=== PATIENT | female | born 1935 | race Caucasian/White ===

== ENCOUNTER → 2017-08-25 | Outpatient (CLI) | payer MEDICARE, OTHER ==
[~2017-08-25] MED LIST: ALBU90OI INH; ATEN25 PO; AZIT250 PO; Anastrozole1 GM MC; CALCA400CH PO; CALCAVITD PO; CALMAGZIN PO; CILO100 PO; CLEM1.34 PO; CYAN500 PO; FISH1000 PO; LOSA50 PO; LOVA40 PO; Loradamed10 MG PO; METF500 PO; Multivitamin1 EAC1 PO; NAPR220 PO; Preservision A1 EACH PO; Prilosec Otc20 MG PO; VITAMIN D31000 UNIT PO; VITAMIN D32000 UNIT PO; Xanax0.5 MG PO; Zithromax250 MG PO; Zofran Odt4 MG SL; Zofran4 MG PO; [UNRECOGNIZED DRUG - OTHER] PO
[2017-08-25 09:48] LABS: Source, Urine Clean Catch
[2017-08-25 10:25] LABS: Bilirubin, Urine Neg (Neg); Blood, Urine 2+ (Neg); Glucose Qualitative, Urine Neg (Neg); Ketones, Urine Neg (Neg); Leukocyte Esterase, Urine 3+ (Neg); Nitrite, Urine Neg (Neg); Protein, Urine 1+ (Neg); Urobilinogen, Urine NORM (Normal)
[2017-08-25 10:31] LABS: Appearance, Urine Turbid (Clear); Color, Urine Yellow (P-Yellow)
[2017-08-25 10:34] LABS: White Blood Cells, Urine TNTC /hpf (0-5)
[2017-08-25 10:35] LABS: Bacteria Mod /hpf
[2017-08-25 10:39] LABS: Squamous Epithelial Cells Mod /hpf (Few)
[2017-08-25 10:40] LABS: Renal Epithelial Few /hpf (0-Rare)
== END | disposition home or self-care (01) ==
LOC: LAB SHORT 09:47 → LAB 09:47
PROVIDERS: Internal Medicine Hematology & Oncology
DX: C50.411 Malignant neoplasm of upper-outer quadrant of right female breast (principal); D63.0 Anemia in neoplastic disease; H52.10 Myopia, unspecified eye; Z17.0 Estrogen receptor positive status [ER+]
CPT/HCPCS: 81001; 87077; 87086; 87186

== ENCOUNTER 2017-09-30 14:47 | Emergency (ER) | payer MEDICARE, OTHER ==
[~2017-09-30] VITALS: Ht 152.4 cm; Wt 90.7 kg
[~2017-09-30 14:47] MED LIST changes: +ANASTROZOLE PO; -Anastrozole1 GM MC
[2017-09-30] MEDS ORDERED: ONDA4 PO (15:02)
[2017-09-30] MEDS ORDERED: Aspirin EC81 MG (15:03)
[2017-09-30] MEDS ORDERED: BACL10 (15:03)
[2017-09-30] MEDS ORDERED: RANI150 PO (15:03)
[2017-09-30] MEDS ORDERED: Norco 5-325 Ta1 EACH PO (17:07)
== END 2017-09-30 17:44 | disposition home or self-care (01) ==
LOC: ER 14:47
DX: M70.61 Trochanteric bursitis, right hip (principal); I10 Essential (primary) hypertension; J44.9 Chronic obstructive pulmonary disease, unspecified; Z79.899 Other long term (current) drug therapy; Z79.84 Long term (current) use of oral hypoglycemic drugs; Z79.82 Long term (current) use of aspirin; Z87.891 Personal history of nicotine dependence; Z87.01 Personal history of pneumonia (recurrent)
CPT/HCPCS: 73502; 99283

== ENCOUNTER 2017-10-01 16:26 | Emergency (ER) | payer MEDICARE, OTHER ==
[~2017-10-01] VITALS: Ht 157.5 cm; Wt 90.7 kg
[~2017-10-01 16:26] MED LIST changes: +Aspirin EC81 MG; +BACL10; +Norco 5-325 Ta1 EACH PO; +ONDA4 PO; +RANI150 PO
== END 2017-10-01 19:10 | disposition home or self-care (01) ==
LOC: ER 16:26
DX: K59.00 Constipation, unspecified (principal); I10 Essential (primary) hypertension; J44.9 Chronic obstructive pulmonary disease, unspecified; Z79.899 Other long term (current) drug therapy; Z79.84 Long term (current) use of oral hypoglycemic drugs; Z87.891 Personal history of nicotine dependence; Z87.01 Personal history of pneumonia (recurrent)
CPT/HCPCS: 74018; 99283

== ENCOUNTER 2017-10-05 22:51 | Emergency (ER) | payer MEDICARE, OTHER ==
[~2017-10-05] VITALS: Ht 157.5 cm; Wt 90.7 kg
[2017-10-06] MEDS ORDERED: Voltaren100 GM TOP (02:00)
== END 2017-10-06 02:30 | disposition home or self-care (01) ==
LOC: ER 22:51
DX: M25.551 Pain in right hip (principal); I10 Essential (primary) hypertension; J44.9 Chronic obstructive pulmonary disease, unspecified; E78.5 Hyperlipidemia, unspecified; F41.9 Anxiety disorder, unspecified; Z79.899 Other long term (current) drug therapy; Z79.84 Long term (current) use of oral hypoglycemic drugs; Z87.891 Personal history of nicotine dependence

== ENCOUNTER 2018-07-27 13:58 | Emergency (ER) | payer MEDICARE, OTHER ==
[~2018-07-27] VITALS: Ht 157.5 cm; Wt 93.4 kg
[~2018-07-27 13:58] MED LIST changes: +Roxicodone5 MG PO; +Voltaren100 GM TOP
[2018-07-27 15:22] LABS: BASOPHILS ABSOLUTE AUTO 0.03 K/mm3 (0.00-0.23); BASOPHILS PERCENT AUTO 0 % (0-2); EOSINOPHILS ABSOLUTE AUTO 0.15 K/mm3 (0.00-0.68); EOSINOPHILS PERCENT AUTO 2 % (0-6); Hematocrit 33.4 % (33.0-51.0); Hemoglobin 10.8 g/dL (11.5-16.0); IMMATURE GRAN ABSOLUTE AUTO 0.02 K/mm3 (0.00-0.10); IMMATURE GRAN PERCENT AUTO 0 % (0-1); LYMPHOCYTES ABSOLUTE AUTO 1.16 K/mm3 (0.84-5.20); LYMPHOCYTES PERCENT AUTO 17 % (21-46); MONOCYTES ABSOLUTE AUTO 0.88 K/mm3 (0.16-1.47); MONOCYTES PERCENT AUTO 13 % (4-13); Mean Corpuscular HGB 29.8 pg (26.0-34.0); Mean Corpuscular HGB Conc 32.3 g/dL (31.5-36.5); Mean Corpuscular Volume 92 fL (80-100); Mean Platelet Volume 10.3 fL (9.1-12.4); NEUTROPHILS ABSOLUTE AUTO 4.48 K/mm3 (1.96-9.15); NEUTROPHILS PERCENT AUTO 67 % (41-73); Platelet Count 129 K/mm3 (150-400); RDW Coefficient Variation 14.1 % (11.7-14.2); Red Blood Cell Count 3.63 M/mm3 (3.80-5.20); White Blood Cell Count 6.72 K/mm3 (4.00-11.30)
[2018-07-27 15:45] LABS: Alanine Aminotransfer (ALT/SGP 35 U/L (12-78); Albumin, Blood 3.9 g/dL (3.4-5.0); Albumin/Globulin Ratio 1.1 (0.8-1.8); Alk Phos 67 U/L (50-136); Anion Gap 7 mmol/L (6-16); Aspartate Aminotrans (AST/SGOT 12 U/L (12-37); Blood Urea Nitrogen 22 mg/dL (8-24); Bun/Creatinine Ratio 26.9 (12.0-20.0); CO2, Blood 29 mmol/L (21-32); Calcium, Blood 9.2 mg/dL (8.5-10.1); Chloride, Blood 98 mmol/L (98-108); Creatinine, Blood 0.82 mg/dL (0.40-1.00); Globulin, Blood 3.6 g/dL (2.2-4.0); Glomerular Filtration Rate >60 (60-); Glucose, Blood 148 mg/dL (70-99); Sodium, Blood 134 mmol/L (136-145); Total Protein, Blood 7.5 g/dL (6.4-8.2); Troponin I <0.015 ng/mL (0.000-0.040)
== END 2018-07-27 16:52 | disposition home or self-care (01) ==
LOC: ER 13:58
PROVIDERS: Physician Assistant
DX: K21.9 Gastro-esophageal reflux disease without esophagitis (principal); Z85.3 Personal history of malignant neoplasm of breast; I10 Essential (primary) hypertension; J44.9 Chronic obstructive pulmonary disease, unspecified; Z87.891 Personal history of nicotine dependence; Z79.899 Other long term (current) drug therapy; Z79.84 Long term (current) use of oral hypoglycemic drugs
CPT/HCPCS: 36415; 80053; 84484; 85025; 93005; 93010; 99283-25

== ENCOUNTER 2018-08-05 15:58 | Emergency (ER) | payer MEDICARE, OTHER ==
[~2018-08-05] VITALS: Ht 157.5 cm; Wt 90.7 kg
== END 2018-08-05 20:24 | disposition home or self-care (01) ==
LOC: ER 15:58
DX: J44.9 Chronic obstructive pulmonary disease, unspecified (principal); Z99.81 Dependence on supplemental oxygen; I10 Essential (primary) hypertension; E66.9 Obesity, unspecified; Z79.899 Other long term (current) drug therapy; Z79.84 Long term (current) use of oral hypoglycemic drugs; Z85.3 Personal history of malignant neoplasm of breast; Z87.891 Personal history of nicotine dependence; Z68.36 Body mass index [BMI] 36.0-36.9, adult
CPT/HCPCS: 36415; 71046; 84484; 93005; 93010; 96374; 99284-25; J0360; J2060

== ENCOUNTER 2019-04-06 14:31 | Inpatient (IN) | payer MEDICARE, OTHER ==
[~2019-04-06] VITALS: Ht 157.5 cm; Wt 93.2 kg
[~2019-04-06 14:31] MED LIST changes: -CALCAVITD PO; +Calcium/Vitamin D; +Fish Oil Conc1000 MG PO; +MULTI VITAMIN1 EACH PO; -VITAMIN D32000 UNIT PO; +VITAMIN D3400 UNI1 PO; -[UNRECOGNIZED DRUG - OTHER] PO
[2019-04-06] MEDS ORDERED: OMEPRAZOLE20 MG PO (14:40)
[2019-04-06 14:57] LABS: BASOPHILS ABSOLUTE AUTO 0.05 K/mm3 (0.00-0.23); BASOPHILS PERCENT AUTO 1 % (0-2); EOSINOPHILS ABSOLUTE AUTO 0.24 K/mm3 (0.00-0.68); EOSINOPHILS PERCENT AUTO 3 % (0-6); Hemoglobin 10.7 g/dL (11.5-16.0); IMMATURE GRAN PERCENT AUTO 2 % (0-1); LYMPHOCYTES ABSOLUTE AUTO 1.31 K/mm3 (0.84-5.20); LYMPHOCYTES PERCENT AUTO 14 % (21-46); MONOCYTES ABSOLUTE AUTO 1.11 K/mm3 (0.16-1.47); MONOCYTES PERCENT AUTO 12 % (4-13); Mean Corpuscular HGB Conc 31.5 g/dL (31.5-36.5); Mean Corpuscular Volume 92 fL (80-100); NEUTROPHILS ABSOLUTE AUTO 6.34 K/mm3 (1.96-9.15); NEUTROPHILS PERCENT AUTO 69 % (41-73); Platelet Count 165 K/mm3 (150-400); RDW Coefficient Variation 14.4 % (11.7-14.2); RDW Standard Deviation 48.3 fL (35.1-46.3); Red Blood Cell Count 3.69 M/mm3 (3.80-5.20); White Blood Cell Count 9.25 K/mm3 (4.00-11.30)
[2019-04-06 15:22] LABS: Troponin I <0.015 ng/mL (0.000-0.040)
[2019-04-06 15:25] LABS: Alanine Aminotransfer (ALT/SGP 34 U/L (12-78); Albumin, Blood 3.6 g/dL (3.4-5.0); Albumin/Globulin Ratio 0.9 (0.8-1.8); Alk Phos 89 U/L (50-136); Anion Gap 3 mmol/L (6-16); Aspartate Aminotrans (AST/SGOT 15 U/L (12-37); Bilirubin, Total 0.2 mg/dL (0.1-1.0); Blood Urea Nitrogen 18 mg/dL (8-24); Bun/Creatinine Ratio 18.9 (12.0-20.0); CO2, Blood 32 mmol/L (21-32); Chloride, Blood 99 mmol/L (98-108); Creatinine, Blood 0.95 mg/dL (0.40-1.00); Globulin, Blood 3.8 g/dL (2.2-4.0); Glomerular Filtration Rate 60 (60-); Glucose, Blood 154 mg/dL (70-99); Potassium, Blood 4.3 mmol/L (3.5-5.5); Sodium, Blood 134 mmol/L (136-145); Total Protein, Blood 7.4 g/dL (6.4-8.2)
[2019-04-06] MEDS ORDERED: ANAS1 PO (16:10)
[2019-04-06] MEDS ORDERED: VIT1CAPS12 PO (16:16)
[2019-04-06] MEDS ORDERED: Super Calcium600 MG PO (16:17)
--- NOTE | 2019-04-06 18:23 | NUR ---
pt in ER review of admission and code status pt was happy to complete a polst. Pt does not want CPR or intubation when review levels of care. pt stated shewould take time on a bipap or transfer to ICU if they could offer care. She demonstrated understading of her chaoices she wants care just no extrodinary life support. She was open to discussing the trajectory of her disease and care needs. Pt is minimal active she ambulated to bathroom states up several times per night and has her meals cooked. She states she does her own bathing but getting more difficult. She lives in assisted living has minimal suppot here in [place]. Her daughter lives in [place]. We discussed futre care needs, quality of life full symtom review and hospice care when apporpriate. Pt states she has excertional dyspnea , mild constipation and minimal pain or air hunger. she see ry grayson she had not seen a child care group leader that she can remeber. She is on home oxygen. review of home health and hisgh risk copd program pt states she would love more support for her her copd. will make referral.
[2019-04-06] MEDS ORDERED: IBUP800 PO (18:31)
--- NOTE | 2019-04-06 18:33 | NUR ---
manager social work referral, pt PPS scale 50%. For evaluation of high risk program or transitional care team. pt does not have paper reeler. may benefit from pt and ot eval. may need higher level of care in future.
[2019-04-06 22:50] LABS: Adenovirus Not Detected (NOT DETECT); Bordetella pertussis Not Detected (NOT DETECT); Chlamydophila pneumoniae Not Detected (NOT DETECT); Coronavirus 229E Not Detected (NOT DETECT); Coronavirus HKU1 Not Detected (NOT DETECT); Coronavirus NL63 Not Detected (NOT DETECT); Coronavirus OC43 Not Detected (NOT DETECT); Human Metapneumovirus Not Detected (NOT DETECT); Human Rhinovirus/Enterovirus Not Detected (NOT DETECT); Influenza A Not Detected (NOT DETECT); Influenza A/2009-H1 Not Detected (NOT DETECT); Influenza A/H1 Not Detected (NOT DETECT); Influenza A/H3 Not Detected (NOT DETECT); Influenza B Not Detected (NOT DETECT); Mycoplasma pneumoniae Not Detected (NOT DETECT); Parainfluenza Virus 1 Not Detected (NOT DETECT); Parainfluenza Virus 2 Not Detected (NOT DETECT); Parainfluenza Virus 3 Not Detected (NOT DETECT); Parainfluenza Virus 4 Not Detected (NOT DETECT); Respiratory Syncytial Virus Not Detected (NOT DETECT)
--- NOTE | 2019-04-07 04:21 | NUR ---
SUMMARY NO ACUTE CHANGES NOTED THROUGH THE NIGHT. PT REMAINS A&O X4. STAND BY ASSIST TO BSC. PRN IV HYDRALAZINE GIVEN X1. PT ASYMPTOMATIC, DENIES CP/PRESSURE. RESP THERAPY GAVE PT A FLUTTER VALVE TO HELP LOOSEN SECRECTIONS, PT HAS BEEN COUGHING AND C/O NASAL "STUFFINESS". HUMIDIFICATION WAS ADDED TO O2, O2 PER NC @ 3L. CALL LIGHT IN REACH, [facility]
--- NOTE | 2019-04-07 12:17 | NUR ---
echocardiogram completed
--- NOTE | 2019-04-07 15:12 | NUR ---
SHIFT SUMMARY THE PATIENT CONTINUES TO COMPLAIN OF CONGESTION TO HER HEAD AND NOSE. SHE WAS GIVEN IV LASIX AT NOON PER ORDERS AND THE PATIENT STATES FEELING SOME EASE OF BREATHING. JUST REQUESTED A BREATHING TREATMENT TO WHICH RT DELIVERED ONE WITH SOME IMPROVEMENT IN WOB WELL, PER PATIENT. NO OTHER ACUTE CHANGES NOTED OR REPORTED AT THIS TIME. WILL CONTINUE TO MONITOR AND PROVIDE CARE NEEDED.
[2019-04-08 05:43] LABS: Bun/Creatinine Ratio 19.3 (12.0-20.0); Calcium, Blood 8.7 mg/dL (8.5-10.1); Creatinine, Blood 1.09 mg/dL (0.40-1.00); Potassium, Blood 4.1 mmol/L (3.5-5.5)
--- NOTE | 2019-04-08 08:03 | NUR ---
SUMMARY PT SITTING ON EDGE OF BED THIS AM.SODIUM LEVEL [address] RICE.
--- NOTE | 2019-04-08 16:00 | NUR ---
SODIUM LEVEL DR. BENNETT CALLED & NOTIFIED OF PT NA LEVEL OF 128. STATED HE STOPPED LASIX & NA LEVEL SHOULD START NORMALIZING. WILL CONTINUE TO MONITOR.
--- NOTE | 2019-04-08 17:50 | NUR ---
SHIFT SUMMARY NEW IV PLACED FOR PT COMFORT. FS REMOVED PER PROTOCOL. NO CHANGES IN ASSESSMENT AT THIS TIME. LAST BP ELEVATED AT 150/69. TRENDING DOWN. OTHER VITALS STABLE. WILL CONTINUE TO MONITOR UNTIL TURNOVER IS COMPLETE. COUGH MEDS GIVEN OT THIS SHIFT. NO PAIN MEDS REQUIRED THIS SHIFT.
[2019-04-09 05:40] LABS: Bun/Creatinine Ratio 22.7 (12.0-20.0); Creatinine, Blood 0.97 mg/dL (0.40-1.00)
--- NOTE | 2019-04-09 07:34 | NUR ---
SHIFT SUMMARY PT A/O. NO C/O PAIN. SLEPT IN RECLINER WITH LEGS RECLINED ALL NIGHT. 3L O2 NC. BREATHING TX PRN. OCCASIONAL CONGESTED SOUNDING PRODUCTIVE COUGH. SHE WAS ABLE TO SLEEP T/O NIGHT. SBA TO INDEPENDENT C WALKER TO BA. CALL LIGHT IN REACH.
--- NOTE | 2019-04-09 16:49 | NUR ---
SHIFT SUMMARY PT HAS BEEN UP IN CHAIR MOST OF THE SHIFT. NO COMPLAINTS OF PAIN. PT DOES GET SHORT OF BREATH WITH EXERTION. PT HAS A PRODUCTIVE COUGH BUT NO SPUTUM SAMPLE AT THIS TIME. NO ACUTE CHANGES THIS SHIFT. CALL LIGHT IN REACH. WILL CONTINUE TO MONITOR AND REPORT TO ONCOMING RN.
--- NOTE | 2019-04-09 17:41 | NUR ---
revie of pt needs on DC assess for high risk program.
--- NOTE | 2019-04-09 19:31 | NUR ---
PATIENT SITTING UP IN THE CHAIR, OXYGEN ON AT 3 LITERS NC. PATIENT IS AOX3 COOPERATIVE. STATES SHE IS STARTING TO FEEL ANXIOUS AND SHE DOES NOT KNOW WHY. ITS BEEN YEARS SINCE SHE HAD A PANIC ATTACK. STATES SHE NOT THERE YET BUT FEELS IT BUILDING UP. COUGH IS PRODUCTIVE BUT STATES SHE CAN NOT GET THE SPUTUM IN THE CUP, "I'LL THROW UP." ENCOURAGE HER TO WE NEED A SAMPLE. LUNG SOUNDS DIMINISHED, TIGHT. NO SOB NOTED AT THIS TIME. MILD EDEMA TO BLE. STATES SHE TAKES ANXIETY MEDS AT HOME BUT DOES NOT KNOW WHAT THEY ARE. MED REC DOES NOT SHOW ANY ANXIETY MEDICATIONS. WILL HAVE TO CALL MD FOR SOMETHING. CALL LIGHT IN REACH.
--- NOTE | 2019-04-10 04:54 | NUR ---
SHIFT SUMMARY: 84 Y/O FEMALE, ADMITTED FOR RESPIRTORY FAILURE WITH HYPOXIA. JANELLE LUNGS ARE DIMINISHED AND TIGHT, COUGH HAS NOT BEEN PRODUCTIVE TONIGHT. WHICH HAS MADE IT ROUGH FOR JANELLE TO SLEEP. SHE REPORTED ANXIOUSNESS, MD WAS CALLED ATIVAN WAS ORDERED AND GIVEN. JANELLE SLEPT FOR SHORT PERIOD AFTERWARDS BUT WOKE NEEDING TO COUGH OUT SECREATIONS. SHE ATTEMPTED TO SLEEP IN THE BED BUT HAD DIFFICULTIES, ENDING ON THE SIDE OF THE BED MULTIPLE OF TIMES. VS HAVE BEEN STABLE, BP DOWN IN THE 150'S THIS SHIFT. OXYGEN AT 3 LITERS, MILD SOB WAS NOTED HERE AND THERE THIS SHIFT. CALL LIGHT REMAINED IN REACH AND USED APPROPRIATLY. WILL REPORT OFF TO DAY SHIFT.
[2019-04-10 08:37] LABS: Potassium, Blood 4.7 mmol/L (3.5-5.5)
[2019-04-10 11:41] LABS: Chloride, Urine, Random 34 mmol/L (55-125); Osmolality, Urine 355 mos/kg (15-1400); Sodium, Urine, Random 35 mmol/L (20-110)
--- NOTE | 2019-04-10 18:39 | NUR ---
SHIFT SUMMARY PT HAS BEEN SITTING IN CHAIR MOST OF THE SHIFT. PT SLEEPS WHILE SITTING UP. PT REPORTS LESS COUGHING THIS AFTERNOON. NO SPUTUM COLLECTED THIS SHIFT. PT CONTINUES TO BE ON 3L OXYGEN VIA NC. PT AMBULATORY TO BATHROOM. NO ACUTE CHANGES THIS SHIFT. WILL CONTINUE TO MONITOR AND REPORT TO ONCOMING RN. CALL LIGHT IN REACH.
[2019-04-11 08:17] LABS: Bun/Creatinine Ratio 35.3 (12.0-20.0); Calcium, Blood 8.6 mg/dL (8.5-10.1); Creatinine, Blood 1.19 mg/dL (0.40-1.00); Potassium, Blood 4.8 mmol/L (3.5-5.5)
--- NOTE | 2019-04-11 10:00 | NUR ---
IV FLUIDS DISCONTINUED PER DR BENNETT"S VERBAL ORDER.
--- NOTE | 2019-04-11 16:03 | NUR ---
SHIFT SUMMARY THE PATIENT CONTINUES TO BE CONGESTED AND HAS COMPLAINED OF SHORTNESS OF BREATH A FEW TIMES T/O THE DAY. SCHEDULED CLARITIN, SOLU-MEDROL AND PRN BREATHING TREATMENTS HAVE HELPED "OPEN UP" PATIENTS AIRWAY. THE PATIENT IS COOPERATIVE AND PLEASANT WITH STAFF. SHE USES CALL LIGHT FOR ASSIST APPROPRIATELY. WILL CONTINUE TO MONITOR AND PROVIDE CARE NEEDED.
--- NOTE | 2019-04-11 19:36 | NUR ---
CALLED DR BENNETT AT 1840 TO UPDATE ON PATIENT'S STATUS S/P IV LASIX ADMINISTRATION. PATIENT STATES HER RESPIRATIONS ARE LESS LABORED AND SHE APPEARS TO BE MUCH MORE RELAXED WELL.
--- NOTE | 2019-04-12 02:10 | NUR ---
IV IN LEFT FOREARM REMOVED DUE TO IT NOT BEING PATENT AND LEAKING. NEW IV INSERTED INTO RIGHT FOREARM AT 0130 04/12/19.
[2019-04-12 05:16] LABS: Hemoglobin 9.4 g/dL (11.5-16.0); Mean Corpuscular HGB 29.9 pg (26.0-34.0); Mean Corpuscular HGB Conc 34.8 g/dL (31.5-36.5); Mean Platelet Volume 10.1 fL (9.1-12.4); Platelet Count 161 K/mm3 (150-400); RDW Coefficient Variation 14.4 % (11.7-14.2); RDW Standard Deviation 44.4 fL (35.1-46.3); Red Blood Cell Count 3.14 M/mm3 (3.80-5.20); White Blood Cell Count 19.07 K/mm3 (4.00-11.30)
[2019-04-12 05:35] LABS: Bun/Creatinine Ratio 38.5 (12.0-20.0); Calcium, Blood 8.6 mg/dL (8.5-10.1); Creatinine, Blood 1.43 mg/dL (0.40-1.00); Potassium, Blood 4.6 mmol/L (3.5-5.5)
[2019-04-12 05:41] LABS: Mean Corpuscular Volume 86 fL (80-100)
--- NOTE | 2019-04-12 06:34 | NUR ---
SHIFT SUMMARY PATIENT WAS VERY PLEASANT AND RESTED IN HER BED ALL NIGHT. THE IV IN HER LEFT FOREARM WAS NO LONGER PATENT AND WAS LEAKING SO IT WAS REMOVED. A NEW IV WAS PLACED IN HER RIGHT FOREARM WHICH IS PATENT AND WAS FLUSHED. SHE IS CURRENTLY ON 5 LITERS OF O2 VIA NASAL CANULA. BED IN LOWEST POSITION WITH WHEELS LOCKED. CALL LIGHT WITHIN REACH. REPORT GIVEN TO ONCLEDA CARVAJAL.
--- NOTE | 2019-04-12 15:34 | NUR ---
SHIFT SUMMARY THE PATIENT HAS HAD AN UNEVENTFUL DAY. RESP IMPROVED TODAY AND LESS LABORED THAN YESTERDAY. PATIENT IS BACK ON 3L O2 NC. VITALS HAVE BEEN STABLE WITH NO EPISODES OF HYPERTENSION NEEDING PRN COVERAGE. THERE HAVE BEEN NO ACUTE CHANGES TO REPORT OF THIS SHIFT. WILL CONTINUE TO MONITOR AND PROVIDE CARE NEEDED.
--- NOTE | 2019-04-12 22:14 | NUR ---
PATIENT REPORTS ACID REFLUX. HOSPITALIST NGA ROSE ORDERED CALCIUM CARBONATE 1,000 MG X ONE CHEWABLE.
--- NOTE | 2019-04-13 05:06 | NUR ---
SHIFT SUMMARY PATIENT HAD NO ACUTE CHANGES OBSERVED. AXO X3 AND ONE ASSIST TO BSC. SOB W/EXERTION. PIV REMAINS INTACT. ON 3L O2 NC AND BASELINE. RT IN FOR BREATHING TX. VSS/AFEBRILE. DENIES PAIN AND N/V. COOPERATIVE WITH CARE. CALL LIGHT IN REACH. BED IN LOWEST POSITION. WILL CONTINUE TO MONITOR UNTIL DAY SHIFT NURSE ASSUMES CARE.
[2019-04-13 05:18] LABS: Hematocrit 28.5 % (33.0-51.0); Hemoglobin 9.5 g/dL (11.5-16.0); Mean Corpuscular HGB 29.3 pg (26.0-34.0); Mean Corpuscular HGB Conc 33.3 g/dL (31.5-36.5); Mean Corpuscular Volume 88 fL (80-100); Mean Platelet Volume 10.3 fL (9.1-12.4); Platelet Count 157 K/mm3 (150-400); RDW Coefficient Variation 14.3 % (11.7-14.2); RDW Standard Deviation 46.1 fL (35.1-46.3); Red Blood Cell Count 3.24 M/mm3 (3.80-5.20); White Blood Cell Count 13.45 K/mm3 (4.00-11.30)
[2019-04-13 05:37] LABS: Bun/Creatinine Ratio 48.9 (12.0-20.0); Calcium, Blood 8.5 mg/dL (8.5-10.1); Creatinine, Blood 1.33 mg/dL (0.40-1.00); Potassium, Blood 4.6 mmol/L (3.5-5.5)
--- NOTE | 2019-04-13 06:14 | NUR ---
PATIENT OUT OF ROOM FOR CXR VIA GURNEY WITH IMAGING.
--- NOTE | 2019-04-13 19:29 | NUR ---
SHIFT SUMMARY PT AWAKE DURING SHIFT REPORT, LYING HF. PT UP TO CHAIR FOR MOST OF DAY. PT IS SBA WITH FWW AND LATER WAS INDEPENDENT USING FWW WHEN GOING TO [facility]. PT FROM [facility] AND ON 3L O2 AT BASELINE. DR HOUSTON DECREASED SOLUMEDROL TO BID TODAY. LUNGS CTA. PT MORBIDLY OBESE, MAKING MOBILITY DIFFICULT. HX HTN, BUT SEEMED TO BE IMPROVED TODAY; SEE CHART. SKIN VERY PALE AND DRY WITH POSSIBLE PSORIASIS TO LE'S. NO C/O TODAY. CALL LT IN REACH, ABLE TO MAKE NEEDS KNOWN.
--- NOTE | 2019-04-14 00:46 | NUR ---
BEGINNING SHIFT SUMMARY ASSUMED CARE OF PT AT 1900. PT WAS SITTING IN HER CHAIR PLAYING Explorys ON HER PHONE. PT IS A/O X4. HEART SOUNDS IRREGULAR, PERIPHERAL PULSES STRONG, IV IN R HAND SALINE LOCKED, DENIES CHEST PAIN. LUNG SOUNDS CLEAR, DENIES SOB/DYSPNEA. BOWEL TONES HYPERACTIVE. PT IS CURRENTLY IN BED WATCHING TV. CALL LIGHT IN REACH, BED IN LOWEST POSTION, WILL CONTINUE TO MONITOR.
--- NOTE | 2019-04-14 05:13 | NUR ---
END SHIFT SUMMARY NO ACUTE CANGES NOTED THROUGHOUT THE SHIFT. PT IS AWAKE AND USING THE RESTROOM WITH THE ASSISTANT OPERATOR. PT DENIES SOB OR DYSPNEA. CALL LIGHT IN REACH, BED IN LOWEST POSITION, WILL CONTINUE TO MONITOR UNTIL DAYSHIFT NURSE ARRIVES.
[2019-04-14] MEDS ORDERED: Amlodipine Besy10 MG PO (13:42)
[2019-04-14] MEDS ORDERED: DOCU100 PO (13:43)
[2019-04-14] MEDS ORDERED: DEXT30SU PO (13:43)
[2019-04-14] MEDS ORDERED: ALBU3IS INH (13:44)
[2019-04-14] MEDS ORDERED: MIRALAX17 GM PO (13:45)
[2019-04-14] MEDS ORDERED: LEVO750 PO (13:46)
[2019-04-14] MEDS ORDERED: PRED20 PO (13:49)
--- NOTE | 2019-04-14 16:32 | NUR ---
DISCHARGE INSTRUCTIONS COMPLETED AND DISCUSSED WITH PT EXPRESSING UNDERSTANDING. REPORTED SHE GOT A HOLD OF SOMEONE THAT DOES CAREGIVING AT HER PENITENTIARY HOME AND SHE IS ABLE TO PICK HER MEDICATION UP THIS EVENING. [facility] CALLED FOR DISPLAY MAKER AND WAS HERE TO PICK PT UP VIA DANIE AT 1550.
== END 2019-04-14 15:50 | disposition home health service (06) | DRG 189 ==
LOC: ER 14:31 → MEDS 14:32 → ENPENDDIS 04-14 10:32 → MEDS 04-14 15:50
PROVIDERS: Internal Medicine; ADMIT Internal Medicine
DX: J96.21 Acute and chronic respiratory failure with hypoxia (principal); J18.9 Pneumonia, unspecified organism; I50.33 Acute on chronic diastolic (congestive) heart failure; J44.1 Chronic obstructive pulmonary disease with (acute) exacerbation; J44.0 Chronic obstructive pulmonary disease with (acute) lower respiratory infection; E87.1 Hypo-osmolality and hyponatremia; E87.0 Hyperosmolality and hypernatremia; J20.9 Acute bronchitis, unspecified; I11.0 Hypertensive heart disease with heart failure; E11.9 Type 2 diabetes mellitus without complications; D63.8 Anemia in other chronic diseases classified elsewhere; I16.0 Hypertensive urgency; K59.00 Constipation, unspecified; Z87.891 Personal history of nicotine dependence; Z99.81 Dependence on supplemental oxygen; Z66 Do not resuscitate
CPT/HCPCS: 0099U; 36415; 71046; 80048; 80053; 82436; 82728; 83036; 83540; 83550; 83880; 83935; 84300; 84484; 85025; 85027; 87070; 87205; 93005; 93010; 93306; 94640; 94667; 94760; 96372; 96374; 96375; 96376; 99285-25; G0378; J0360; J1650; J1940; J1956; J2930; J7030

== ENCOUNTER 2019-04-23 16:02 | Emergency (ER) | payer MEDICARE, OTHER ==
[~2019-04-23] VITALS: Ht 157.5 cm; Wt 90.7 kg
[~2019-04-23 16:02] MED LIST changes: +ALBU3IS INH; +ANAS1 PO; +Amlodipine Besy10 MG PO; +DEXT30SU PO; +DOCU100 PO; +IBUP800 PO; +LEVO750 PO; +MIRALAX17 GM PO; +OMEPRAZOLE20 MG PO; +PRED20 PO; +Super Calcium600 MG PO; +VIT1CAPS12 PO
[2019-04-23 16:39] LABS: BASOPHILS ABSOLUTE AUTO 0.01 K/mm3 (0.00-0.23); BASOPHILS PERCENT AUTO 0 % (0-2); EOSINOPHILS ABSOLUTE AUTO 0.06 K/mm3 (0.00-0.68); EOSINOPHILS PERCENT AUTO 1 % (0-6); Hematocrit 31.2 % (33.0-51.0); IMMATURE GRAN ABSOLUTE AUTO 0.04 K/mm3 (0.00-0.10); IMMATURE GRAN PERCENT AUTO 0 % (0-1); LYMPHOCYTES ABSOLUTE AUTO 0.52 K/mm3 (0.84-5.20); LYMPHOCYTES PERCENT AUTO 5 % (21-46); MONOCYTES ABSOLUTE AUTO 0.49 K/mm3 (0.16-1.47); MONOCYTES PERCENT AUTO 4 % (4-13); Mean Corpuscular HGB 29.2 pg (26.0-34.0); Mean Corpuscular HGB Conc 32.1 g/dL (31.5-36.5); Mean Platelet Volume 9.8 fL (9.1-12.4); NEUTROPHILS ABSOLUTE AUTO 10.56 K/mm3 (1.96-9.15); NEUTROPHILS PERCENT AUTO 90 % (41-73); Platelet Count 165 K/mm3 (150-400); RDW Coefficient Variation 14.3 % (11.7-14.2); RDW Standard Deviation 48.2 fL (35.1-46.3); Red Blood Cell Count 3.42 M/mm3 (3.80-5.20); White Blood Cell Count 11.68 K/mm3 (4.00-11.30)
[2019-04-23 16:44] LABS: Mean Corpuscular Volume 91 fL (80-100)
[2019-04-23 17:08] LABS: Troponin I <0.015 ng/mL (0.000-0.040)
[2019-04-23 17:14] LABS: Alanine Aminotransfer (ALT/SGP 41 U/L (12-78); Albumin, Blood 3.2 g/dL (3.4-5.0); Alk Phos 53 U/L (50-136); Anion Gap 6 mmol/L (6-16); Aspartate Aminotrans (AST/SGOT 14 U/L (12-37); Bilirubin, Total 0.5 mg/dL (0.1-1.0); Blood Urea Nitrogen 23 mg/dL (8-24); Bun/Creatinine Ratio 25.1 (12.0-20.0); CO2, Blood 27 mmol/L (21-32); Calcium, Blood 8.4 mg/dL (8.5-10.1); Chloride, Blood 96 mmol/L (98-108); Creatinine, Blood 0.92 mg/dL (0.40-1.00); Globulin, Blood 3.1 g/dL (2.2-4.0); Glomerular Filtration Rate >60 (60-); Glucose, Blood 218 mg/dL (70-99); Potassium, Blood 4.5 mmol/L (3.5-5.5); Sodium, Blood 129 mmol/L (136-145); Total Protein, Blood 6.3 g/dL (6.4-8.2)
== END 2019-04-23 19:24 | disposition home or self-care (01) ==
LOC: ER 16:02
PROVIDERS: Emergency Medicine
DX: I11.0 Hypertensive heart disease with heart failure (principal); I50.32 Chronic diastolic (congestive) heart failure; J44.9 Chronic obstructive pulmonary disease, unspecified; D64.9 Anemia, unspecified; Z79.899 Other long term (current) drug therapy; Z79.84 Long term (current) use of oral hypoglycemic drugs; Z79.51 Long term (current) use of inhaled steroids; Z87.891 Personal history of nicotine dependence
CPT/HCPCS: 36415; 71046; 80053; 84484; 85025; 93005; 93010; 99284-25

== ENCOUNTER 2019-06-06 19:41 | Inpatient (IN) | payer MEDICARE, OTHER ==
[~2019-06-06] VITALS: Ht 157.5 cm; Wt 87.7 kg
[2019-06-06 20:26] LABS: BASOPHILS ABSOLUTE AUTO 0.02 K/mm3 (0.00-0.23); BASOPHILS PERCENT AUTO 0 % (0-2); EOSINOPHILS PERCENT AUTO 4 % (0-6); Hematocrit 30.7 % (33.0-51.0); Hemoglobin 9.8 g/dL (11.5-16.0); IMMATURE GRAN ABSOLUTE AUTO 0.02 K/mm3 (0.00-0.10); IMMATURE GRAN PERCENT AUTO 0 % (0-1); LYMPHOCYTES ABSOLUTE AUTO 0.89 K/mm3 (0.84-5.20); LYMPHOCYTES PERCENT AUTO 17 % (21-46); MONOCYTES ABSOLUTE AUTO 0.78 K/mm3 (0.16-1.47); MONOCYTES PERCENT AUTO 15 % (4-13); Mean Corpuscular HGB 28.7 pg (26.0-34.0); Mean Corpuscular HGB Conc 31.9 g/dL (31.5-36.5); Mean Corpuscular Volume 90 fL (80-100); Mean Platelet Volume 9.5 fL (9.1-12.4); NEUTROPHILS ABSOLUTE AUTO 3.28 K/mm3 (1.96-9.15); NEUTROPHILS PERCENT AUTO 63 % (41-73); Platelet Count 170 K/mm3 (150-400); RDW Coefficient Variation 15.1 % (11.7-14.2); RDW Standard Deviation 47.9 fL (35.1-46.3); Red Blood Cell Count 3.41 M/mm3 (3.80-5.20); White Blood Cell Count 5.19 K/mm3 (4.00-11.30)
[2019-06-06 20:41] LABS: Alanine Aminotransfer (ALT/SGP 33 U/L (12-78); Albumin, Blood 3.6 g/dL (3.4-5.0); Albumin/Globulin Ratio 1.1 (0.8-1.8); Alk Phos 88 U/L (50-136); Anion Gap 9 mmol/L (6-16); Aspartate Aminotrans (AST/SGOT 13 U/L (12-37); Bilirubin, Total 0.4 mg/dL (0.1-1.0); Blood Urea Nitrogen 11 mg/dL (8-24); Bun/Creatinine Ratio 13.6 (12.0-20.0); CO2, Blood 26 mmol/L (21-32); Calcium, Blood 8.9 mg/dL (8.5-10.1); Chloride, Blood 99 mmol/L (98-108); Creatinine, Blood 0.81 mg/dL (0.40-1.00); Globulin, Blood 3.4 g/dL (2.2-4.0); Glomerular Filtration Rate >60 (60-); Glucose, Blood 114 mg/dL (70-99); Potassium, Blood 3.5 mmol/L (3.5-5.5); Sodium, Blood 134 mmol/L (136-145); Troponin I <0.015 ng/mL (0.000-0.040)
--- NOTE | 2019-06-07 06:28 | NUR ---
0310 REPORT RECEIVED FROM WEI ALAS IN ER; PT SLIDE FROM STRETCHER TO BED X 4 ASSIST VIA SLIDER SHEET; ALERT AND ORIENTED X 4; BED ALARM APPLIED FOR SAFETY; PT HAS STAGE II PRESSURE ULCERS TO LEFT/RIGHT BUTTOCKS NOTED (SEE PHOTOS ON CHART).
--- NOTE | 2019-06-07 06:30 | NUR ---
SHIFT SUMMARY: 84 Y/O FEMALE RESTED COMFORTABLY THIS SHIFT. PT ATE ONE CONTAINER OF YOGURT THAT THIS NURSE ASSISTED FEEDING WITH; DENIES PAIN OR NAUSEA; LUNG SOUNDS ARE WHEEZING THROUGHOUT WITH O2 AT 3L/M PER NASAL CANNULA WITH SATS 94% VIA CONTINUOUS PULSE OXIMETER; ALERT AND ORIENTED X 4; BED ALARM APPLIED, BED LOW POSITION WITH CALL LIGHT AT SIDE.
--- NOTE | 2019-06-07 09:14 | NUR ---
Bowels were loose, mixed into the front hat with the urine could not collect a specimen.
[2019-06-07 12:38] LABS: Adenovirus F 40/41 Not Detected (NOT DETECT); Astrovirus Not Detected (NOT DETECT); Campylobacter Sp Not Detected (NOT DETECT); Cryptosporidium Not Detected (NOT DETECT); Cyclospora Cayetanensis Not Detected (NOT DETECT); E. Coli O157 Not Detected (NOT DETECT); Entamoeba Histolytica Not Detected (NOT DETECT); Enteroaggregative E. coli-EAEC Not Detected (NOT DETECT); Enteropathogenic E. coli-EPEC Not Detected (NOT DETECT); Enterotoxigenic E. coli-ETEC Not Detected (NOT DETECT); Giardia Lamblia Not Detected (NOT DETECT); Norovirus GI/GII Not Detected (NOT DETECT); Plesiomonas Shigelloides Not Detected (NOT DETECT); Rotavirus A Not Detected (NOT DETECT); Salmonella Sp Not Detected (NOT DETECT); Sapovirus Not Detected (NOT DETECT); Shiga Toxin-prod E. coli-STEC Not Detected (NOT DETECT); Shigella/Enteroin E. coli-EIEC Not Detected (NOT DETECT); Vibrio Cholerae Not Detected (NOT DETECT); Vibrio Sp Not Detected (NOT DETECT); Yersinia Enterocolitica Not Detected (NOT DETECT)
[2019-06-07 14:07] LABS: Adenovirus Not Detected (NOT DETECT); Bordetella pertussis Not Detected (NOT DETECT); Chlamydophila pneumoniae Not Detected (NOT DETECT); Coronavirus 229E Not Detected (NOT DETECT); Coronavirus HKU1 Not Detected (NOT DETECT); Coronavirus NL63 Not Detected (NOT DETECT); Coronavirus OC43 Not Detected (NOT DETECT); Human Metapneumovirus Not Detected (NOT DETECT); Human Rhinovirus/Enterovirus Not Detected (NOT DETECT); Influenza A Not Detected (NOT DETECT); Influenza A/2009-H1 Not Detected (NOT DETECT); Influenza A/H1 Not Detected (NOT DETECT); Influenza A/H3 Not Detected (NOT DETECT); Influenza B Not Detected (NOT DETECT); Mycoplasma pneumoniae Not Detected (NOT DETECT); Parainfluenza Virus 1 Not Detected (NOT DETECT); Parainfluenza Virus 2 Not Detected (NOT DETECT); Parainfluenza Virus 3 Not Detected (NOT DETECT); Parainfluenza Virus 4 Not Detected (NOT DETECT); Respiratory Syncytial Virus Detected (NOT DETECT)
--- NOTE | 2019-06-07 17:36 | NUR ---
PT ALERT AND ORIENTED THROUGHOUT THIS SHIFT. PT COOPERATIVE WITH CARE. PT UP IN BEDSIDE CHAIR DURING THIS SHIFT. PT UP TO BATHROOM WITH ASSIST FOR CORDS MULTIPLE TIMES DURING THIS SHIFT. PT REPORTS BREATHING EASIER THIS SHIFT. PT SITTING UP WAITING FOR DINNER.
--- NOTE | 2019-06-07 18:33 | NUR ---
Initial spiritual care note: Per admit trigger, I met with Mrs. Crawley to offer information about ACP. She has a POLST on file that was completed 2 months ago. For this reason, she was bewildered by visit. She is non-jewish. No concerns presented. She hopes to be discharged home tomorrow.
--- NOTE | 2019-06-08 04:55 | NUR ---
SHIFT SUMMARY: 84 Y/O FEMALE RESTED COMFORTABLY ALL SHIFT IN HIGH FOWLERS (PT VOICED SHE NORMALLY SLEEPS LOUNGE CHAIR AT HOME); DENIES PAIN OR NAUSEA; WEARING O2 AT 4L/M PER NASAL CANNULA WITH SATS AVERAGING 94%; BED ALARM APPLIED, BED LOW POSITION WITH CALL LIGHT AT SIDE.
--- NOTE | 2019-06-08 18:27 | NUR ---
PT ALERT AND ORIENTED, COOPERATIVE WITH CARE THIS SHIFT. PT USES CALL LIGHT APPROPRIATELY. PT UP IN BEDSIDE CHAIR THROUGHOUT THIS SHIFT. PT TO BATHROOM WITH 1 PERSON ASSIST. PT REMAINS ON 4L O2 THROUGHOUT THIS SHIFT. PT PROVIDED INFORMATION ON RSV PER PT REQUEST. PT UP IN CHAIR EATING DINNER, CALL LIGHT IN REACH.
--- NOTE | 2019-06-08 22:26 | NUR ---
2013 PT LYING IN BED, REPORTS SORE THROAT. PT HAS A YEAST/REDDENED AREA UNDER THE LEFT SIDE OF HER ABD FOLD. WILL SPEAK TO THE DR REGARDING THROAT LOZENGES AND CREAM FOR RASH WHEN THE DR IS NEXT CALLED. PT HAS A NON PRODUCTIVE COUGH. NO OTHER APPARENT SIGNS OF DISTRESS. CALL LIGHT IS IN REACH.
--- NOTE | 2019-06-08 22:46 | NUR ---
PT LYING IN BED, WAKES EASILY TO VERBAL STIMULI. APPLIED NYSTATIN CREAM AND GAVE PT A CEPACOL LOZENGE. PUT THE PACKAGE OF LOZENGES ON HER BEDSIDE TABLE. PT DENIED ANY OTHER DISCOMFORT OR NEED FOR ANYTHING ELSE AT THIS TIME. NO OTHER APPARENT SIGNS OF DISTRESS. CALL LIGHT IS IN REACH.
--- NOTE | 2019-06-08 23:38 | NUR ---
PT LYING IN BED, EYES CLOSED, APPEARS TO BE RESTING. BREATHING IS EVEN, UNLABORED. NO APPARENT SIGNS OF DISTRESS. CALL LIGHT IS IN REACH.
--- NOTE | 2019-06-09 01:42 | NUR ---
PT LYING IN BED, EYES CLOSED, APPEARS TO BE RESTING. BREATHING IS EVEN, UNLABORED. NO APPARENT SIGNS OF DISTRESS. CALL LIGHT IS IN REACH.
--- NOTE | 2019-06-09 02:51 | NUR ---
PT AAO X 4, ON 2 /2 L NC AT 94%. LAST BS WAS 174. PT REPORTED SORE THROAT, GOT LOZENGES. PT HAS REDNESS UNDER L SIDE OF ABD FOLD. GOT NYSTATIN CREAM. PT HAS BILAT WOUNDS ON BUTTOCKS, PT LIKES TO USE VASELINE FOR HER WOUND CARE AND NOT MEDICATED TOPICALS, AND NO DRESSINGS. DRY SKIN ON LE'S, USING LOTION.
--- NOTE | 2019-06-09 04:07 | NUR ---
PT LYING IN BED, AWAKE, WATCHING TV. DENIES ANY DISCOMFORT OR NEED FOR ANYTHING AT THIS TIME. NO APPARENT SIGNS OF DISTRESS. CALL LIGHT IS IN REACH.
--- NOTE | 2019-06-09 05:25 | NUR ---
PT SITTING IN CHAIR AT BEDSIDE. ASSISTED PT WITH BLANKETS AND BEDSIDE TABLE. PT DENIES NEED FOR ANYTHING ELSE AT THIS TIME. NO APPARENT SIGNS OF DISTRESS. CALL LIGHT IS IN REACH. NO OTHER CHANGES THIS SHIFT.
[2019-06-09 06:47] LABS: Albumin, Blood 3.4 g/dL (3.4-5.0); Anion Gap 6 mmol/L (6-16); Blood Urea Nitrogen 27 mg/dL (8-24); Bun/Creatinine Ratio 29.3 (12.0-20.0); CO2, Blood 27 mmol/L (21-32); Calcium, Blood 8.7 mg/dL (8.5-10.1); Chloride, Blood 100 mmol/L (98-108); Creatinine, Blood 0.92 mg/dL (0.40-1.00); Glomerular Filtration Rate >60 (60-); Glucose, Blood 128 mg/dL (70-99); Phosphorus, Blood 2.5 mg/dL (2.5-4.9); Potassium, Blood 3.8 mmol/L (3.5-5.5); Sodium, Blood 133 mmol/L (136-145)
[2019-06-09] MEDS ORDERED: AZIT500 PO (09:49)
[2019-06-09] MEDS ORDERED: ALBU2.5V5 INH (09:49)
[2019-06-09] MEDS ORDERED: CEPACOL SORE T1 EACH PO (09:50)
[2019-06-09] MEDS ORDERED: GUAI600T33 PO (09:51)
[2019-06-09] MEDS ORDERED: Duoneb 2.5-0.5 M3 ML INH (09:51)
[2019-06-09] MEDS ORDERED: Vsl#3 Capsule1 EACH PO (09:52)
[2019-06-09] MEDS ORDERED: NYSTRITC TOP (09:53)
[2019-06-09] MEDS ORDERED: Prednisone10 MG PO (09:54)
[2019-06-09] MEDS ORDERED: SENN187 PO (09:54)
[2019-06-09] MEDS ORDERED: BUDE6HFA INH (09:55)
--- NOTE | 2019-06-09 11:27 | NUR ---
PT DCD HOME WITH HOME HEALTH PER . RX FAXED TO [facility] PER PT REQUEST. ALL INSTRUCTIONS, MEDS AND FOLLOW UPS REVIEWED WITH PT BY RN AND MD. ALL QUESTIONS ANSWERED. PT TRANSPORTED VIA W/C TRANSPORT WITH O2. ALL PERSONAL BELONGINGS SENT WITH PT. PT STABLE UPON DC.
== END 2019-06-09 11:14 | disposition home health service (06) | DRG 191 ==
LOC: ER 19:41 → MEDS 06-07 02:36
PROVIDERS: Emergency Medicine; Internal Medicine; Nurse Practitioner Acute Care; ADMIT Internal Medicine
DX: J44.1 Chronic obstructive pulmonary disease with (acute) exacerbation (principal); J96.11 Chronic respiratory failure with hypoxia; J00 Acute nasopharyngitis [common cold]; R19.7 Diarrhea, unspecified; I10 Essential (primary) hypertension; E11.42 Type 2 diabetes mellitus with diabetic polyneuropathy; E11.51 Type 2 diabetes mellitus with diabetic peripheral angiopathy without gangrene; K21.9 Gastro-esophageal reflux disease without esophagitis; E66.01 Morbid (severe) obesity due to excess calories; E78.5 Hyperlipidemia, unspecified; Z85.3 Personal history of malignant neoplasm of breast; Z92.3 Personal history of irradiation; Z99.81 Dependence on supplemental oxygen; Z87.891 Personal history of nicotine dependence; Z79.84 Long term (current) use of oral hypoglycemic drugs; Z79.899 Other long term (current) drug therapy; Z68.35 Body mass index [BMI] 35.0-35.9, adult
CPT/HCPCS: 0097U; 0099U; 36415; 71045; 80053; 80069; 82947; 83880; 84145; 84484; 85025; 93005; 93010; 94640; 94644; 94664; 94667; 94760; 94762; 96372; 96374-59; 96376; 97116; 97161; 98960; 99285-25; A9270; G0378; J1650; J2930; J7512

== ENCOUNTER 2019-06-27 10:36 | Inpatient (IN) | payer MEDICARE, OTHER ==
[~2019-06-27] VITALS: Ht 160 cm; Wt 87.1 kg
[~2019-06-27 10:36] MED LIST changes: -ATEN25 PO; +ATEN50 PO; +AZIT500 PO; +BUDE6HFA INH; +CEPACOL SORE T1 EACH PO; -CILO100 PO; +Cilostazol100 MG PO; +Duoneb 2.5-0.5 M3 ML INH; +GUAI600T33 PO; -Loradamed10 MG PO; +Loratadine10 MG PO; +NYSTRITC TOP; +Prednisone10 MG PO; +SENN187 PO; +Vsl#3 Capsule1 EACH PO
[2019-06-27 11:29] LABS: BASOPHILS ABSOLUTE AUTO 0.02 K/mm3 (0.00-0.23); BASOPHILS PERCENT AUTO 0 % (0-2); EOSINOPHILS ABSOLUTE AUTO 0.09 K/mm3 (0.00-0.68); EOSINOPHILS PERCENT AUTO 2 % (0-6); Hematocrit 30.1 % (33.0-51.0); Hemoglobin 9.5 g/dL (11.5-16.0); IMMATURE GRAN ABSOLUTE AUTO 0.01 K/mm3 (0.00-0.10); IMMATURE GRAN PERCENT AUTO 0 % (0-1); LYMPHOCYTES ABSOLUTE AUTO 0.46 K/mm3 (0.84-5.20); LYMPHOCYTES PERCENT AUTO 9 % (21-46); MONOCYTES ABSOLUTE AUTO 0.93 K/mm3 (0.16-1.47); MONOCYTES PERCENT AUTO 18 % (4-13); Mean Corpuscular HGB 28.3 pg (26.0-34.0); Mean Corpuscular HGB Conc 31.6 g/dL (31.5-36.5); Mean Corpuscular Volume 90 fL (80-100); Mean Platelet Volume 10.4 fL (9.1-12.4); NEUTROPHILS ABSOLUTE AUTO 3.79 K/mm3 (1.96-9.15); NEUTROPHILS PERCENT AUTO 72 % (41-73); Platelet Count 125 K/mm3 (150-400); RDW Coefficient Variation 14.3 % (11.7-14.2); RDW Standard Deviation 46.6 fL (35.1-46.3); Red Blood Cell Count 3.36 M/mm3 (3.80-5.20)
[2019-06-27 11:40] LABS: Alanine Aminotransfer (ALT/SGP 39 U/L (12-78); Albumin, Blood 3.4 g/dL (3.4-5.0); Alk Phos 77 U/L (50-136); Anion Gap 6 mmol/L (6-16); Aspartate Aminotrans (AST/SGOT 16 U/L (12-37); Bilirubin, Total 0.4 mg/dL (0.1-1.0); Blood Urea Nitrogen 13 mg/dL (8-24); Bun/Creatinine Ratio 15.1 (12.0-20.0); CO2, Blood 28 mmol/L (21-32); Calcium, Blood 8.8 mg/dL (8.5-10.1); Chloride, Blood 98 mmol/L (98-108); Creatinine, Blood 0.86 mg/dL (0.40-1.00); Globulin, Blood 3.5 g/dL (2.2-4.0); Glomerular Filtration Rate >60 (60-); Glucose, Blood 103 mg/dL (70-99); Potassium, Blood 4.2 mmol/L (3.5-5.5); Sodium, Blood 132 mmol/L (136-145); Total Protein, Blood 6.9 g/dL (6.4-8.2); Troponin I <0.015 ng/mL (0.000-0.040)
[2019-06-27 11:56] LABS: BAND PERCENT MAN 1 % (0-8); BASOPHILS PERCENT MAN 0 % (0-2); EOSINOPHILS PERCENT MAN 2 % (0-6); LYMPHOCYTES ABSOLUTE MAN 0.31 K/mm3 (0.84-5.20); LYMPHOCYTES PERCENT MAN 6 % (21-46); MONOCYTES ABSOLUTE MAN 0.37 K/mm3 (0.16-1.47); MONOCYTES PERCENT MAN 7 % (4-13); SEG NEUTROPHILS PERCENT MAN 84 % (41-73); TOTAL CELLS COUNTED 100
[2019-06-27 11:58] LABS: Influenza A Negative (NEGATIVE); Influenza B Negative (NEGATIVE)
[2019-06-27] MEDS ORDERED: BUSP10 PO (13:10)
--- NOTE | 2019-06-27 17:59 | NUR ---
No acute issues noted at this time. Patient is on O2 @ 3 liters nasal canula which is her baseline. No current complaints of pain or discomfort noted. Will continue to monitor for changes.
--- NOTE | 2019-06-27 19:39 | NUR ---
JANELLE CALLED NEEDING TO USE THE BATHROOM. JUST PLACED NEW ORDERS. ARRIVED TO ROOM AND ASSISTED ONE ASSIST TO THE BSC. SHE WAS ABLE TO GET UP MOSTLY ON HER OWN, SHE DOES GET SOB WITH EXERTION. ENCOURAGED DEEP BREATHING EXERCISES AND BREATHING THROUGH THE NOSE. COUGH IS NON-PRODUCTIVE AT THIS TIME. DENIES ANY PAIN OR DISCOMFORT. WHILE GIVING MEDS PER ORDERS, SHE STATES SHE CAN NOT TAKE LEVAQUIN, STATES IT CAUSES HER TO HAVE STIFFNESS OF THE JOINTS. WITHHELD DOSE AND WILL CALL MD TO NOTIFY. ASSISTED BACK TO BED. FLUIDS STARTED AT 100ML PER HR. CALL LIGHT IN REACH, WILL CONTINUE TO MONITOR.
--- NOTE | 2019-06-27 21:45 | NUR ---
2121 CALL PLACED TO HOSPTIALIST REGARDING ALLERGY TO LEVAQUIN. NO ANSWER. 2132 RETURN CALL RECEIVED FROM ALEXA ROSE. INFORMED OF ALLERGY TO LEVAQUIN. ASKED IF SHE WOULD LIKE TO PLACE HER ON SOMETHING ELSE. ALEXA STATES SHE WILL LOOK AT THE CHART AND GET BACK TO ME. 2144 RECEIVED CALL BACK FROM ALEXA ROSE. STATES SHE HAD ANTIBOTICS IN THE ER THEREFORE WILL BE COVERED TILL TOMORROW. STATES SHE WILL NOT CHANGE ANYTHING AT THIS TIME BUT TO MAKE SURE AND PASS ON TO DAY SHIFT TO TALK TO DR. HWANG. SHE DID ORDER RT PANEL FOR EVAN.
[2019-06-27 23:54] LABS: Adenovirus Not Detected (NOT DETECT); Bordetella pertussis Not Detected (NOT DETECT); Chlamydophila pneumoniae Not Detected (NOT DETECT); Coronavirus 229E Not Detected (NOT DETECT); Coronavirus HKU1 Not Detected (NOT DETECT); Coronavirus NL63 Not Detected (NOT DETECT); Coronavirus OC43 Not Detected (NOT DETECT); Human Metapneumovirus Not Detected (NOT DETECT); Human Rhinovirus/Enterovirus Not Detected (NOT DETECT); Influenza A Detected (NOT DETECT); Influenza A/2009-H1 Detected (NOT DETECT); Influenza A/H1 Not Detected (NOT DETECT); Influenza A/H3 Not Detected (NOT DETECT); Influenza B Not Detected (NOT DETECT); Mycoplasma pneumoniae Not Detected (NOT DETECT); Parainfluenza Virus 1 Not Detected (NOT DETECT); Parainfluenza Virus 2 Not Detected (NOT DETECT); Parainfluenza Virus 3 Not Detected (NOT DETECT); Parainfluenza Virus 4 Not Detected (NOT DETECT); Respiratory Syncytial Virus Not Detected (NOT DETECT)
[2019-06-28 05:31] LABS: Hematocrit 28.2 % (33.0-51.0); Hemoglobin 9.3 g/dL (11.5-16.0); Mean Corpuscular HGB 29.1 pg (26.0-34.0); Mean Corpuscular Volume 88 fL (80-100); Mean Platelet Volume 10.4 fL (9.1-12.4); Platelet Count 124 K/mm3 (150-400); RDW Coefficient Variation 14.1 % (11.7-14.2); RDW Standard Deviation 45.3 fL (35.1-46.3); White Blood Cell Count 3.64 K/mm3 (4.00-11.30)
[2019-06-28 05:54] LABS: Anion Gap 7 mmol/L (6-16); Blood Urea Nitrogen 16 mg/dL (8-24); Bun/Creatinine Ratio 21.1 (12.0-20.0); CO2, Blood 25 mmol/L (21-32); Calcium, Blood 8.6 mg/dL (8.5-10.1); Chloride, Blood 100 mmol/L (98-108); Creatinine, Blood 0.76 mg/dL (0.40-1.00); Glomerular Filtration Rate >60 (60-); Glucose, Blood 108 mg/dL (70-99); Potassium, Blood 3.8 mmol/L (3.5-5.5); Sodium, Blood 132 mmol/L (136-145)
--- NOTE | 2019-06-28 05:55 | NUR ---
SHIFT SUMMARY: JANELLE HAS BEEN PLEASANT AND COOPERATIVE. VS HAVE REMAINED WITH IN NORMAL LIMITS. SHE HAS DENIED PAIN. LUNG SOUNDS HAVE REMAINED DIMINISHED, WITH NON-PRODUCTIVE COUGH. SHE GETS OCCATIONAL CHEST TIGHTNESS AFTER EXERTIONS CAUSING SOB. RT HAS BEEN PROVIDING BREATHING TREATMENTS SCHEDULED AND PRN. IT WAS NOTED LAST NIGHT THAT SHE HAS AN ALLERGY TO LEVAQUIN WHICH WAS NOT GIVEN. ALEXA GUI DEVELOPER WAS NOTIFIED OF THIS, WHICH SHE REQUEST THAT DAYSHIFT TALK TO DR. HWANG TODAY. SHE DID ORDER RESPIRTORY PANEL, WHICH WAS COLLECTED AND SENT TO LAB. UP TO BSC WITH 1 PERSON ASSIST. CALL LIGHT HAS REMAINED IN REACH AND USED APPROPRIATELY. NO OTHER CHANGES TO REPORT.
[2019-06-28 05:56] LABS: Percent Saturation 11.4 % (15.0-50.0)
--- NOTE | 2019-06-28 06:30 | NUR ---
LAB RESULTS CAME BACK POSTIVE FOR INFLUENZA A. DR. CADENA CALLED AND ORDER FOR TAMIFLU RECEIVED. PATIENT PLACED IN DROPLET ISOLATION.
--- NOTE | 2019-06-28 15:30 | NUR ---
summary PT IS A/O X4, PLEASANT AFFECT. PHYTHER IN FOR TX TODAY, STATE UPGRADED TO AMBULATION IND w FWW, GAIT STEADY. PT IS FLU+, SHE STATE CONTINUING MALAISE, FATIGUE. STATE CONTINUING COUGH, LUNG SOUNDS DECREASED, O2 @ 3L HOME DOSE/PT. SHE STATE PLEURITIC CHEST PAIN D/T COUGH HOWEVER DECLINE PRN TYLENOL, STATE TOLERABLE. SCHEDULED & PRN COUGH MEDS PROVIDED. RT PROVIDING BREATHING TX'S. VSS, AFEBRILE.
--- NOTE | 2019-06-28 20:55 | NUR ---
JANELLE WAS SITTING UP IN THE CHAIR, STATES SHE IS FEELING BETTER TODAY THEN PREVIOUS DAYS. STILL HAS COUGH BUT NO PRODUCTION. LUNG SOUNDS DIMINISHED AND TIGHT. RT CALLED FOR BREATHING TREATMENT. ENCOURAGED HER TO CONTINUE TO DO DEEP BREATHING EXERCISES. WANTS TO WAIT TO GO TO BED TILL AFTER MEDICATIONS. HOPES TO GO HOME SOON.
--- NOTE | 2019-06-29 04:39 | NUR ---
SHIFT SUMMARY: JANELLE IS DOING BETTER, ABLE TO MOVE AROUND WITH LESS SOB THEN WHEN SHE FIRST CAME TO THE HOSPIAL. COUGH HAS DECREASED. LUNG SOUNDS DIMINISHED AND TIGHT. RT CONTINUES TO PROVIDE BREATHING TX. O2 HAS REMAINED AT 3 LITERS WHICH IS HER BASE. SATS HAVE BEEN STABLE IN THE 90'S. VS STABLE. NO PAIN OR DISCOMFORT. SLEPT OFF AND ON THIS SHIFT. ABLE TO GET UP WITH 1 ASSIST TO BSC. CALL LIGHT REMAINED IN REACH AND USED APPROPRIATLY.
[2019-06-29 05:22] LABS: BASOPHILS ABSOLUTE AUTO 0.01 K/mm3 (0.00-0.23); BASOPHILS PERCENT AUTO 0 % (0-2); EOSINOPHILS PERCENT AUTO 0 % (0-6); Hematocrit 26.6 % (33.0-51.0); Hemoglobin 8.8 g/dL (11.5-16.0); IMMATURE GRAN ABSOLUTE AUTO 0.01 K/mm3 (0.00-0.10); IMMATURE GRAN PERCENT AUTO 0 % (0-1); LYMPHOCYTES PERCENT AUTO 24 % (21-46); MONOCYTES ABSOLUTE AUTO 0.55 K/mm3 (0.16-1.47); MONOCYTES PERCENT AUTO 19 % (4-13); Mean Corpuscular HGB 29.1 pg (26.0-34.0); Mean Corpuscular HGB Conc 33.1 g/dL (31.5-36.5); Mean Corpuscular Volume 88 fL (80-100); Mean Platelet Volume 9.9 fL (9.1-12.4); NEUTROPHILS ABSOLUTE AUTO 1.67 K/mm3 (1.96-9.15); NEUTROPHILS PERCENT AUTO 57 % (41-73); Platelet Count 126 K/mm3 (150-400); Red Blood Cell Count 3.02 M/mm3 (3.80-5.20); White Blood Cell Count 2.94 K/mm3 (4.00-11.30)
[2019-06-29 05:54] LABS: Alanine Aminotransfer (ALT/SGP 34 U/L (12-78); Albumin, Blood 2.9 g/dL (3.4-5.0); Albumin/Globulin Ratio 0.9 (0.8-1.8); Alk Phos 61 U/L (50-136); Anion Gap 6 mmol/L (6-16); Aspartate Aminotrans (AST/SGOT 8 U/L (12-37); Bilirubin, Total 0.2 mg/dL (0.1-1.0); Blood Urea Nitrogen 18 mg/dL (8-24); Bun/Creatinine Ratio 22.8 (12.0-20.0); CO2, Blood 27 mmol/L (21-32); Calcium, Blood 8.6 mg/dL (8.5-10.1); Chloride, Blood 102 mmol/L (98-108); Creatinine, Blood 0.79 mg/dL (0.40-1.00); Globulin, Blood 3.2 g/dL (2.2-4.0); Glomerular Filtration Rate >60 (60-); Glucose, Blood 107 mg/dL (70-99); Magnesium, Blood 1.9 mg/dL (1.6-2.4); Potassium, Blood 3.6 mmol/L (3.5-5.5); Sodium, Blood 135 mmol/L (136-145); Total Protein, Blood 6.1 g/dL (6.4-8.2)
--- NOTE | 2019-06-29 15:06 | NUR ---
SUMMARY PT IS A/O X4, PLEASANT/COOPERATIVE AFFECT. SHE STATE CONTINUING FATIGUE, MALAISE HOWEVER STATE FEELS SHE IS IMPROVING. STATE CONTINUING COUGH THIS AM ALSO IMPROVING. SHE IS @ BASELINE O2 3L, BIOX 90-95% DX FLU+, TAMIFLU CONTINUES. HX CHF, DR GRECO START ORAL LASIX 40MG. LUNGS SOMEWHAT COARSE ON R. H&H LOW, 8.8/26.6, AWARE & MONITIORING LABS. ORDER B12 IM TODAY. VSS. CAREGIVERS FROM [facility] CALLED TODAY TO CHECK ON PT & STATUS R/T D/C.
--- NOTE | 2019-06-29 19:50 | NUR ---
JANELLE WAS JUST GETTING UP TO THE BATHROOM. STATES SHE IS STILL URINATING OFTEN DUE TO THE DIURETIC TAKEN EARLIER. SHE HOPES IT STARTS TO WEAR OFF SOON SHE WANTS TO SLEEP. DENIES ANY OTHER CHANGES FOR TODAY. LUNG SOUNDS HAVE IMPROVED. MILDLY DIMINISHED. SOB IMPROVED. COUGH IS PRODUCTIVE OF SMALL SECREATIONS. ABLE TO GET BACK AND FORTH TO THE COMODE BUT NEEDS HELP TO GET BACK TO BED. CALL LIGHT IN REACH, WILL CONTINUE TO MONITOR.
[2019-06-30 04:56] LABS: BASOPHILS PERCENT AUTO 0 % (0-2); EOSINOPHILS ABSOLUTE AUTO 0.01 K/mm3 (0.00-0.68); EOSINOPHILS PERCENT AUTO 0 % (0-6); Hematocrit 28.6 % (33.0-51.0); Hemoglobin 9.1 g/dL (11.5-16.0); IMMATURE GRAN ABSOLUTE AUTO 0.01 K/mm3 (0.00-0.10); IMMATURE GRAN PERCENT AUTO 0 % (0-1); LYMPHOCYTES PERCENT AUTO 27 % (21-46); MONOCYTES ABSOLUTE AUTO 0.55 K/mm3 (0.16-1.47); MONOCYTES PERCENT AUTO 15 % (4-13); Mean Corpuscular HGB 28.1 pg (26.0-34.0); Mean Corpuscular HGB Conc 31.8 g/dL (31.5-36.5); Mean Corpuscular Volume 88 fL (80-100); Mean Platelet Volume 9.6 fL (9.1-12.4); NEUTROPHILS PERCENT AUTO 58 % (41-73); Platelet Count 138 K/mm3 (150-400); RDW Standard Deviation 45.1 fL (35.1-46.3); Red Blood Cell Count 3.24 M/mm3 (3.80-5.20); White Blood Cell Count 3.77 K/mm3 (4.00-11.30)
--- NOTE | 2019-06-30 05:11 | NUR ---
SHIFT SUMMARY: JANELLE IS DOING MUCH BETTER THEN PREVIOUS NIGHTS. SHE HAS BEEN INDEPENDENT TO THE BATHROOM AND VOIDING FREQUENTLY AFTER DIURETICS. EDEMA IN LEGS SEEM TO HAVE GONE DOWN. LUNG SOUNDS ARE CLEAR AND DIMINISHED. BREATHING HAS IMPROVED. OXYGEN AT BASE LINE OF 3 LITERS. BLOOD SURGAR BELOW NEED FOR INSULIN TONIGHT. VS STABLE. NO PAIN NOTED. CALL LIGHT REMAINED IN REACH AND USED APPROPRIATLY.
[2019-06-30 05:26] LABS: Percent Saturation 25.1 % (15.0-50.0)
[2019-06-30 05:36] LABS: Alanine Aminotransfer (ALT/SGP 37 U/L (12-78); Albumin, Blood 2.9 g/dL (3.4-5.0); Albumin/Globulin Ratio 0.8 (0.8-1.8); Alk Phos 62 U/L (50-136); Anion Gap 7 mmol/L (6-16); Aspartate Aminotrans (AST/SGOT 11 U/L (12-37); Bilirubin, Total 0.2 mg/dL (0.1-1.0); Blood Urea Nitrogen 21 mg/dL (8-24); Bun/Creatinine Ratio 23.6 (12.0-20.0); CO2, Blood 26 mmol/L (21-32); Calcium, Blood 8.7 mg/dL (8.5-10.1); Chloride, Blood 100 mmol/L (98-108); Creatinine, Blood 0.89 mg/dL (0.40-1.00); Globulin, Blood 3.5 g/dL (2.2-4.0); Glomerular Filtration Rate >60 (60-); Glucose, Blood 92 mg/dL (70-99); Potassium, Blood 3.8 mmol/L (3.5-5.5); Sodium, Blood 133 mmol/L (136-145); Total Protein, Blood 6.4 g/dL (6.4-8.2)
--- NOTE | 2019-06-30 17:05 | NUR ---
PT AOX4 AND COOPERATIVE OF CARE. PT HAS BEEN INDEPENDENT IN ROOM AND CALLS APPROPRIATELY. PT APPEARS RELAXED, MINIMAL COUGHS NOTED TODAY. PT STATED SHE NEEDED TO HAVE A BM SHE HAS NOT BEEN SUCCESSFUL IN THE LAST COUPLE DAYS. NOTIFIED DR GRECO AND HAD STOOL SOFTNERS ADDED TO EMAR. WILL CONTINUE TO MONITOR.
--- NOTE | 2019-07-01 00:47 | NUR ---
07/01/19 0040 PT C/O HEARTBURN. ICE COLD MILK GIVEN.
--- NOTE | 2019-07-01 07:50 | NUR ---
07/01/19 0550 PT UP IN CHAIR BY STRUCTURES MECHANIC. WATCHING TV. TAKING WATER. MODERATE HEARTBURN THIS SHIFT WITH SOME RELIEF WITH MILK. VITALS STABLE.
--- NOTE | 2019-07-01 17:26 | NUR ---
PT AOX4 AND COOPERATIVE OF CARE. PT HAS BEEN DOING WELL INDEPENDENTLY UP TO RESTROOM WTIH WALKER. PT REPORTS SHE IS STILL NO HAVING A BM TODAY. STOOL SOFTNERS WERE ADDED TO EMAR. DR GRECO ALSO REQUESTED A SUPPOSITORY ADMINISTERED TODAY. THIS ROTARY CUTTER FEEDER COMPLETED THIS TASK AND PT TOLERATED WELL. PT HAS HAD TWO SMALL HARD BMS AT THIS TIME, BUT STATES SHE FEELS SHE STILL HAS MORE TO WORK OUT. WILL CONTINUE TO MONITOR. DENIES PAIN AT THIS TIME.
--- NOTE | 2019-07-02 05:24 | NUR ---
07/02/19 0515 AWAKE AND WENT TO BR FOR VOIDING. AM MEDS GIVEN AND DENIES ANY S/S. VITALS STABLE. UNEVENTFUL NIGHT. SITTING UP IN CHAIR.
[2019-07-02 05:58] LABS: BASOPHILS ABSOLUTE AUTO 0.01 K/mm3 (0.00-0.23); BASOPHILS PERCENT AUTO 0 % (0-2); EOSINOPHILS ABSOLUTE AUTO 0.03 K/mm3 (0.00-0.68); EOSINOPHILS PERCENT AUTO 1 % (0-6); Hematocrit 31.1 % (33.0-51.0); Hemoglobin 10.2 g/dL (11.5-16.0); IMMATURE GRAN ABSOLUTE AUTO 0.03 K/mm3 (0.00-0.10); IMMATURE GRAN PERCENT AUTO 1 % (0-1); LYMPHOCYTES ABSOLUTE AUTO 1.38 K/mm3 (0.84-5.20); LYMPHOCYTES PERCENT AUTO 25 % (21-46); MONOCYTES ABSOLUTE AUTO 0.75 K/mm3 (0.16-1.47); MONOCYTES PERCENT AUTO 14 % (4-13); Mean Corpuscular HGB 28.4 pg (26.0-34.0); Mean Corpuscular HGB Conc 32.8 g/dL (31.5-36.5); Mean Corpuscular Volume 87 fL (80-100); Mean Platelet Volume 9.8 fL (9.1-12.4); NEUTROPHILS ABSOLUTE AUTO 3.35 K/mm3 (1.96-9.15); NEUTROPHILS PERCENT AUTO 60 % (41-73); Platelet Count 172 K/mm3 (150-400); RDW Coefficient Variation 13.5 % (11.7-14.2); RDW Standard Deviation 42.8 fL (35.1-46.3); Red Blood Cell Count 3.59 M/mm3 (3.80-5.20); White Blood Cell Count 5.55 K/mm3 (4.00-11.30)
[2019-07-02 06:19] LABS: Anion Gap 6 mmol/L (6-16); Blood Urea Nitrogen 24 mg/dL (8-24); Bun/Creatinine Ratio 28.4 (12.0-20.0); CO2, Blood 29 mmol/L (21-32); Calcium, Blood 8.8 mg/dL (8.5-10.1); Chloride, Blood 97 mmol/L (98-108); Creatinine, Blood 0.85 mg/dL (0.40-1.00); Glomerular Filtration Rate >60 (60-); Glucose, Blood 84 mg/dL (70-99); Potassium, Blood 3.9 mmol/L (3.5-5.5); Sodium, Blood 132 mmol/L (136-145)
[2019-07-02] MEDS ORDERED: FURO20 PO (12:50)
[2019-07-02] MEDS ORDERED: DOCU100 PO (12:50)
[2019-07-02] MEDS ORDERED: HYDCOR2.5C PR (12:50)
[2019-07-02] MEDS ORDERED: Prednisone10 MG PO (12:51)
[2019-07-02] MEDS ORDERED: MIRALAX17 GM PO (12:51)
--- NOTE | 2019-07-02 14:40 | NUR ---
PATIENT D/C'D BACK TO [facility] WITH HOME HEALTH VIA [place] [employer] W/C TRANSPORT. RX MEDICATIONS FAXED TO [facility]. DC INSTRUCTIONS AND EDUCATION DISCUSSED WITH PATIENT AND COPY PROVIDED. PATIENT DENIES ANY FURTHER QUESTIONS OR CONCERNS. APPT SCEDULED FOR PCP ON 07/06/19 AT 1045.
== END 2019-07-02 14:32 | disposition home health service (06) | DRG 291 ==
LOC: ER 10:36 → MEDS 10:37 → ENPENDDIS 07-02 12:23 → MEDS 07-02 14:32
PROVIDERS: Emergency Medicine; Internal Medicine; Nurse Practitioner Acute Care; Physician Assistant; ADMIT Internal Medicine
DX: I11.0 Hypertensive heart disease with heart failure (principal); J96.21 Acute and chronic respiratory failure with hypoxia; J96.11 Chronic respiratory failure with hypoxia; I50.33 Acute on chronic diastolic (congestive) heart failure; Z99.81 Dependence on supplemental oxygen; E78.5 Hyperlipidemia, unspecified; E11.51 Type 2 diabetes mellitus with diabetic peripheral angiopathy without gangrene; E11.40 Type 2 diabetes mellitus with diabetic neuropathy, unspecified; Z85.3 Personal history of malignant neoplasm of breast; E66.01 Morbid (severe) obesity due to excess calories; Z68.34 Body mass index [BMI] 34.0-34.9, adult; Z66 Do not resuscitate; Z79.4 Long term (current) use of insulin; K21.9 Gastro-esophageal reflux disease without esophagitis; J10.1 Influenza due to other identified influenza virus with other respiratory manifestations; Z87.891 Personal history of nicotine dependence
CPT/HCPCS: 0099U; 36415; 71046; 80048; 80053; 82728; 82947; 83540; 83550; 83735; 83880; 84145; 84443; 84484; 85025; 85027; 87804; 93005; 93010; 94640; 94760; 96361; 96365; 96372; 97110; 97161; 97165; 97535; 99285-25; G0378; J0696; J1650; J2405; J3420; J7030; J7512

== ENCOUNTER → 2020-02-14 | Outpatient (CLI) | payer MEDICARE, OTHER ==
[~2020-02-14] MED LIST changes: +BUSP10 PO; +FURO20 PO; +HYDCOR2.5C PR
[2020-02-14 11:07] LABS: Source, Urine Clean Catch
[2020-02-14 12:46] LABS: Blood, Urine 3+ (Neg); Glucose Qualitative, Urine Neg (Neg); Ketones, Urine Neg (Neg); Leukocyte Esterase, Urine 3+ (Neg); Nitrite, Urine Pos (Neg); Protein, Urine 2+ (Neg); Specific Gravity, Urine 1.015 (1.003-1.022); Urobilinogen, Urine 1+ (Normal)
[2020-02-14 13:08] LABS: Appearance, Urine Turbid (Clear); Bilirubin, Urine 1+ (Neg); Color, Urine Orange (P-Yellow)
[2020-02-14 13:25] LABS: White Blood Cells, Urine TNTC /hpf (0-5)
[2020-02-14 13:26] LABS: Bacteria Mod /hpf; Squamous Epithelial Cells Mod /hpf (Few)
== END | disposition home or self-care (01) ==
LOC: LAB 11:03 → LAB SHORT 11:03
PROVIDERS: Family Medicine
DX: R30.0 Dysuria (principal)
CPT/HCPCS: 81001; 87086

== ENCOUNTER 2020-09-03 05:10 | Inpatient (IN) | payer MEDICARE, OTHER ==
[~2020-09-03] VITALS: Ht 170.2 cm; Wt 91.8 kg
[2020-09-03 05:27] LABS: PCO2 Arterial > 105 mmHg (35-45); PO2 Arterial 145 mmHg (80-100); pH Blood Arterial 7.07 (7.35-7.45)
[2020-09-03 05:34] LABS: BASOPHILS ABSOLUTE AUTO 0.07 K/mm3 (0.00-0.23); BASOPHILS PERCENT AUTO 1 % (0-2); EOSINOPHILS ABSOLUTE AUTO 0.34 K/mm3 (0.00-0.68); EOSINOPHILS PERCENT AUTO 3 % (0-6); Hematocrit 34.3 % (33.0-51.0); Hemoglobin 10.3 g/dL (11.5-16.0); IMMATURE GRAN ABSOLUTE AUTO 0.09 K/mm3 (0.00-0.10); IMMATURE GRAN PERCENT AUTO 1 % (0-1); LYMPHOCYTES PERCENT AUTO 28 % (21-46); MONOCYTES PERCENT AUTO 14 % (4-13); Mean Corpuscular HGB 27.2 pg (26.0-34.0); Mean Corpuscular Volume 91 fL (80-100); Mean Platelet Volume 11.2 fL (9.1-12.4); NEUTROPHILS ABSOLUTE AUTO 5.65 K/mm3 (1.96-9.15); NEUTROPHILS PERCENT AUTO 54 % (41-73); Platelet Count 174 K/mm3 (150-400); RDW Coefficient Variation 15.3 % (11.7-14.2); RDW Standard Deviation 50.2 fL (35.1-46.3); Red Blood Cell Count 3.78 M/mm3 (3.80-5.20); White Blood Cell Count 10.55 K/mm3 (4.00-11.30)
[2020-09-03 05:54] LABS: Alanine Aminotransfer (ALT/SGP 23 U/L (12-78); Albumin, Blood 3.7 g/dL (3.4-5.0); Albumin/Globulin Ratio 0.9 (0.8-1.8); Alk Phos 78 U/L (50-136); Anion Gap 2 mmol/L (6-16); Aspartate Aminotrans (AST/SGOT 10 U/L (12-37); Bilirubin, Total 0.4 mg/dL (0.1-1.0); Blood Urea Nitrogen 21 mg/dL (8-24); Bun/Creatinine Ratio 22.6 (12.0-20.0); CO2, Blood 33 mmol/L (21-32); Calcium, Blood 8.7 mg/dL (8.5-10.1); Chloride, Blood 106 mmol/L (98-108); Creatinine, Blood 0.93 mg/dL (0.40-1.00); Globulin, Blood 4.1 g/dL (2.2-4.0); Glomerular Filtration Rate >60 (60-); Glucose, Blood 176 mg/dL (70-99); Potassium, Blood 4.8 mmol/L (3.5-5.5); Sodium, Blood 141 mmol/L (136-145); Total Protein, Blood 7.8 g/dL (6.4-8.2); Troponin I <0.015 ng/mL (0.000-0.040)
[2020-09-03 07:45] LABS: Source, Urine Catheter
[2020-09-03 07:56] LABS: Appearance, Urine Hazy (Clear); Bilirubin, Urine Neg (Neg); Blood, Urine 2+ (Neg); Color, Urine Yellow (P-Yellow); Glucose Qualitative, Urine Neg (Neg); Ketones, Urine Neg (Neg); Leukocyte Esterase, Urine 3+ (Neg); Nitrite, Urine Neg (Neg); Protein, Urine 3+ (Neg); Urobilinogen, Urine NORM (Normal)
[2020-09-03 07:58] LABS: Bacteria Many /hpf; Squamous Epithelial Cells Rare /hpf (Few); White Blood Cells, Urine 50-100 /hpf (0-5)
[2020-09-03 10:00] LABS: Base Excess Venous 4.8 mmol/L; Bicarbonate Venous 27.6 mmol/L (24.0-30.0); PCO2 Venous 71.4 mmHg (38-42); PO2 Venous 76.4 mmHg (38-42)
[2020-09-03 10:01] LABS: pH Blood Venous 7.26 (7.34-7.37)
[2020-09-03 10:52] LABS: Influenza A, PCR NEGATIVE (NEGATIVE); Influenza B, PCR NEGATIVE (NEGATIVE); Resp Syncytial Virus, PCR NEGATIVE (NEGATIVE); SARS-Cov-2 (COVID-19) PCR, MMC NEGATIVE (NEGATIVE)
[2020-09-04 03:43] LABS: BASOPHILS PERCENT AUTO 0 % (0-2); EOSINOPHILS PERCENT AUTO 0 % (0-6); Hematocrit 27.1 % (33.0-51.0); Hemoglobin 8.3 g/dL (11.5-16.0); IMMATURE GRAN ABSOLUTE AUTO 0.03 K/mm3 (0.00-0.10); IMMATURE GRAN PERCENT AUTO 1 % (0-1); LYMPHOCYTES ABSOLUTE AUTO 0.38 K/mm3 (0.84-5.20); LYMPHOCYTES PERCENT AUTO 8 % (21-46); MONOCYTES ABSOLUTE AUTO 0.27 K/mm3 (0.16-1.47); MONOCYTES PERCENT AUTO 5 % (4-13); Mean Corpuscular HGB 26.9 pg (26.0-34.0); Mean Corpuscular HGB Conc 30.6 g/dL (31.5-36.5); Mean Corpuscular Volume 88 fL (80-100); Mean Platelet Volume 11.1 fL (9.1-12.4); NEUTROPHILS ABSOLUTE AUTO 4.37 K/mm3 (1.96-9.15); NEUTROPHILS PERCENT AUTO 87 % (41-73); Platelet Count 111 K/mm3 (150-400); RDW Standard Deviation 48.2 fL (35.1-46.3); Red Blood Cell Count 3.09 M/mm3 (3.80-5.20); White Blood Cell Count 5.05 K/mm3 (4.00-11.30)
[2020-09-04 04:01] LABS: Alanine Aminotransfer (ALT/SGP 21 U/L (12-78); Albumin, Blood 3.1 g/dL (3.4-5.0); Albumin/Globulin Ratio 0.9 (0.8-1.8); Alk Phos 62 U/L (50-136); Anion Gap 4 mmol/L (6-16); Aspartate Aminotrans (AST/SGOT 5 U/L (12-37); Bilirubin, Total 0.2 mg/dL (0.1-1.0); Blood Urea Nitrogen 32 mg/dL (8-24); Bun/Creatinine Ratio 36.3 (12.0-20.0); CO2, Blood 32 mmol/L (21-32); Calcium, Blood 8.6 mg/dL (8.5-10.1); Chloride, Blood 104 mmol/L (98-108); Creatinine, Blood 0.88 mg/dL (0.40-1.00); Globulin, Blood 3.5 g/dL (2.2-4.0); Glomerular Filtration Rate >60 (60-); Glucose, Blood 177 mg/dL (70-99); Magnesium, Blood 2.2 mg/dL (1.6-2.4); Potassium, Blood 4.3 mmol/L (3.5-5.5); Sodium, Blood 140 mmol/L (136-145); Total Protein, Blood 6.6 g/dL (6.4-8.2)
[2020-09-04 04:23] LABS: Base Excess Venous 8.3 mmol/L; Bicarbonate Venous 31.3 mmol/L (24.0-30.0); PCO2 Venous 45.8 mmHg (38-42); PO2 Venous 141 mmHg (38-42); pH Blood Venous 7.46 (7.34-7.37)
[2020-09-05 16:45] LABS: Anion Gap 6 mmol/L (6-16); Blood Urea Nitrogen 34 mg/dL (8-24); Bun/Creatinine Ratio 39.3 (12.0-20.0); CO2, Blood 32 mmol/L (21-32); Calcium, Blood 9.2 mg/dL (8.5-10.1); Chloride, Blood 99 mmol/L (98-108); Creatinine, Blood 0.87 mg/dL (0.40-1.00); Glomerular Filtration Rate >60 (60-); Glucose, Blood 161 mg/dL (70-99); Potassium, Blood 3.7 mmol/L (3.5-5.5); Sodium, Blood 137 mmol/L (136-145)
[2020-09-06] MEDS ORDERED: TORSE20 PO (11:49)
[2020-09-06] MEDS ORDERED: ATOR20 PO (11:50)
== END 2020-09-06 16:29 | disposition home health service (06) | DRG 291 ==
LOC: ER 05:10 → ICUW 08:44 → MEDS 09-04 16:08
PROVIDERS: Emergency Medicine; Nurse Practitioner Acute Care; ADMIT Hospitalist
PROC: 5A09357 Assistance with Respiratory Ventilation, Less than 24 Consecutive Hours, Continuous Positive Airway Pressure (ICD-10-PCS; principal; 2020-09-03)
DX: I11.0 Hypertensive heart disease with heart failure (principal); J96.22 Acute and chronic respiratory failure with hypercapnia; J96.21 Acute and chronic respiratory failure with hypoxia; J44.1 Chronic obstructive pulmonary disease with (acute) exacerbation; E87.2 Acidosis; I50.33 Acute on chronic diastolic (congestive) heart failure; E11.9 Type 2 diabetes mellitus without complications; I27.20 Pulmonary hypertension, unspecified; Z20.822 Contact with and (suspected) exposure to COVID-19; J44.9 Chronic obstructive pulmonary disease, unspecified; Z86.39 Personal history of other endocrine, nutritional and metabolic disease; E78.5 Hyperlipidemia, unspecified; E11.42 Type 2 diabetes mellitus with diabetic polyneuropathy; E11.51 Type 2 diabetes mellitus with diabetic peripheral angiopathy without gangrene; E66.01 Morbid (severe) obesity due to excess calories; M81.0 Age-related osteoporosis without current pathological fracture; K21.9 Gastro-esophageal reflux disease without esophagitis; F41.1 Generalized anxiety disorder; Z98.42 Cataract extraction status, left eye; Z98.41 Cataract extraction status, right eye; Z98.890 Other specified postprocedural states; Z87.891 Personal history of nicotine dependence; Z66 Do not resuscitate; I16.0 Hypertensive urgency; G89.29 Other chronic pain
CPT/HCPCS: 0241U; 36415; 36600; 51702; 71045; 71046; 80048; 80053; 81001; 82803; 82947; 83735; 83880; 84145; 84484; 85025; 87086; 93005; 93010; 93306; 94640; 94660; 94760; 94761; 96376; 97110; 97116; 97162; 97165; 97530; 97535; 99285-25; A9270; A9270-GY; J0360; J0456; J1650; J1940; J2930; J7050

== ENCOUNTER 2020-09-11 10:03 | Emergency (ER) | payer MEDICARE, OTHER ==
[~2020-09-11] VITALS: Ht 162.6 cm; Wt 90.7 kg
[~2020-09-11 10:03] MED LIST changes: +ATOR20 PO; +TORSE20 PO
[2020-09-11 10:43] LABS: Source, Urine Catheter
[2020-09-11 10:46] LABS: Appearance, Urine Turbid (Clear); Bilirubin, Urine Neg (Neg); Blood, Urine 3+ (Neg); Color, Urine Yellow (P-Yellow); Glucose Qualitative, Urine Neg (Neg); Ketones, Urine Neg (Neg); Leukocyte Esterase, Urine 3+ (Neg); Nitrite, Urine Pos (Neg); Protein, Urine 2+ (Neg); Specific Gravity, Urine 1.015 (1.003-1.022); Urobilinogen, Urine NORM (Normal)
[2020-09-11 11:00] LABS: White Blood Cells, Urine TNTC /hpf (0-5)
[2020-09-11 11:01] LABS: Bacteria Mod /hpf; Mucus Light (0-Heavy); Squamous Epithelial Cells Few /hpf (Few)
[2020-09-11 11:02] LABS: Renal Epithelial Rare /hpf (0-Rare)
[2020-09-11] MEDS ORDERED: CEPH500 PO (12:03)
== END 2020-09-11 12:40 | disposition home or self-care (01) ==
LOC: ER 10:03
PROVIDERS: Emergency Medicine
DX: N39.0 Urinary tract infection, site not specified (principal); Z79.84 Long term (current) use of oral hypoglycemic drugs; Z79.899 Other long term (current) drug therapy
CPT/HCPCS: 70450; 81001; 87077; 87086; 87186; 93005; 93010; 96365; 99285-25; J0696; P9612

== ENCOUNTER 2020-10-27 12:02 | Emergency (ER) | payer MEDICARE, OTHER ==
[~2020-10-27] VITALS: Ht 157.5 cm; Wt 90.7 kg
[~2020-10-27 12:02] MED LIST changes: +CEPH500 PO
[2020-10-27 13:31] LABS: Source, Urine Clean Catch
[2020-10-27 13:58] LABS: Appearance, Urine Clear (Clear); Bilirubin, Urine Neg (Neg); Blood, Urine 1+ (Neg); Color, Urine Yellow (P-Yellow); Glucose Qualitative, Urine Neg (Neg); Ketones, Urine Neg (Neg); Leukocyte Esterase, Urine 1+ (Neg); Nitrite, Urine Neg (Neg); Protein, Urine Neg (Neg); Urobilinogen, Urine NORM (Normal)
[2020-10-27 14:20] LABS: Bacteria Mod /hpf; Red Blood Cells, Urine 0-2 /hpf (0-2); Squamous Epithelial Cells Rare /hpf (Few)
[2020-10-27] MEDS ORDERED: CEFP200 PO (14:25)
== END 2020-10-27 14:26 | disposition home or self-care (01) ==
LOC: ER 12:02
PROVIDERS: Emergency Medicine
DX: N39.0 Urinary tract infection, site not specified (principal); I10 Essential (primary) hypertension; J44.9 Chronic obstructive pulmonary disease, unspecified; E11.42 Type 2 diabetes mellitus with diabetic polyneuropathy; Z79.899 Other long term (current) drug therapy; Z87.891 Personal history of nicotine dependence
CPT/HCPCS: 81001; 87086; 99285; A9270

== ENCOUNTER 2020-11-18 18:55 | Inpatient (IN) | payer MEDICARE, OTHER ==
[~2020-11-18] VITALS: Ht 152.4 cm; Wt 89.9 kg
[~2020-11-18 18:55] MED LIST changes: +CEFP200 PO
[2020-11-18] MEDS ORDERED: AMLODIPINE BESY10 MG PO (19:17)
[2020-11-18] MEDS ORDERED: ANASTROZOLE1 M4 PO (19:17)
[2020-11-18] MEDS ORDERED: CILO100 PO (19:17)
[2020-11-18] MEDS ORDERED: BUSPIRONE HCL10 M3 PO (19:18)
[2020-11-18] MEDS ORDERED: METFORMIN HCL500 M2 PO (19:18)
[2020-11-18] MEDS ORDERED: TORSE20 PO (19:18)
[2020-11-18] MEDS ORDERED: ATEN50 PO (19:19)
[2020-11-18] MEDS ORDERED: ATOR10 PO (19:19)
[2020-11-18] MEDS ORDERED: LOSA50 PO (19:20)
[2020-11-18] MEDS ORDERED: PREGABALIN100 MG PO (19:20)
[2020-11-18] MEDS ORDERED: FLUTICASONE-SA1 EAC9 INH (19:20)
[2020-11-18] MEDS ORDERED: OMEP20ER PO (19:21)
[2020-11-18] MEDS ORDERED: LOVASTATIN40 MG PO (19:21)
[2020-11-18] MEDS ORDERED: Hair, Skin & N1 EACH PO (19:22)
[2020-11-18] MEDS ORDERED: IPRAT-ALBUT 0.5-3 ML INH (19:22)
[2020-11-18 19:33] LABS: BASOPHILS ABSOLUTE AUTO 0.04 K/mm3 (0.00-0.23); BASOPHILS PERCENT AUTO 0 % (0-2); EOSINOPHILS ABSOLUTE AUTO 0.22 K/mm3 (0.00-0.68); EOSINOPHILS PERCENT AUTO 2 % (0-6); Hematocrit 30.8 % (33.0-51.0); Hemoglobin 9.3 g/dL (11.5-16.0); IMMATURE GRAN ABSOLUTE AUTO 0.07 K/mm3 (0.00-0.10); IMMATURE GRAN PERCENT AUTO 1 % (0-1); LYMPHOCYTES ABSOLUTE AUTO 2.32 K/mm3 (0.84-5.20); LYMPHOCYTES PERCENT AUTO 20 % (21-46); MONOCYTES ABSOLUTE AUTO 1.37 K/mm3 (0.16-1.47); MONOCYTES PERCENT AUTO 12 % (4-13); Mean Corpuscular HGB 28.1 pg (26.0-34.0); Mean Corpuscular HGB Conc 30.2 g/dL (31.5-36.5); Mean Corpuscular Volume 93 fL (80-100); Mean Platelet Volume 11.1 fL (9.1-12.4); NEUTROPHILS ABSOLUTE AUTO 7.33 K/mm3 (1.96-9.15); NEUTROPHILS PERCENT AUTO 65 % (41-73); Platelet Count 147 K/mm3 (150-400); RDW Coefficient Variation 15.8 % (11.7-14.2); RDW Standard Deviation 53.9 fL (35.1-46.3); Red Blood Cell Count 3.31 M/mm3 (3.80-5.20); White Blood Cell Count 11.35 K/mm3 (4.00-11.30)
[2020-11-18 19:36] LABS: Source, Urine Catheter
[2020-11-18 19:40] LABS: Appearance, Urine Clear (Clear); Bilirubin, Urine Neg (Neg); Blood, Urine 1+ (Neg); Glucose Qualitative, Urine Neg (Neg); Ketones, Urine Neg (Neg); Leukocyte Esterase, Urine Neg (Neg); Nitrite, Urine Neg (Neg); Protein, Urine 3+ (Neg); Specific Gravity, Urine 1.015 (1.003-1.022); Urobilinogen, Urine NORM (Normal)
[2020-11-18 19:44] LABS: Albumin, Blood 3.9 g/dL (3.4-5.0); Albumin/Globulin Ratio 0.9 (0.8-1.8); Bilirubin, Total 0.3 mg/dL (0.1-1.0); Bun/Creatinine Ratio 28.8 (12.0-20.0); Calcium, Blood 9.2 mg/dL (8.5-10.1); Creatinine, Blood 1.25 mg/dL (0.40-1.00); Globulin, Blood 4.2 g/dL (2.2-4.0); Potassium, Blood 4.5 mmol/L (3.5-5.5); Total Protein, Blood 8.1 g/dL (6.4-8.2)
[2020-11-18 19:59] LABS: Color, Urine Pale Yellow (P-Yellow)
[2020-11-18 20:01] LABS: Bacteria Few /hpf; Red Blood Cells, Urine 0-2 /hpf (0-2); Squamous Epithelial Cells Few /hpf (Few)
[2020-11-18 20:31] LABS: PCO2 Arterial 54.9 mmHg (35-45); PO2 Arterial 187 mmHg (80-100); pH Blood Arterial 7.38 (7.35-7.45)
--- NOTE | 2020-11-18 22:15 | NUR ---
PT ARRIVES TO ICU 6 VIA GURNEY FROM ER WITH RT AND RN. PT IS NOTED TO OPEN HER EYES TO SPOKEN NAME, DOES FOLLOW SOME SIMPLE COMMANDS, NODS/SHAKES HEAD YES/NO FOR QUESTIONS. ETT IN PLACE, 23 CM AT GUMS, RT SETTING UP VENTILATOR, AC 18, TV 375, INITIAL FIO2 60%, PEEP 5.0, CURRENT RESP RATE IS 18/MIN, LUNGS ARE COARSE THROUGHOUT, SPUTUM SAMPLE OBTAINED BY RT, NOTED TO BE THICK WHITE SPUTUM, LUNG SOUNDS UNCHANGED POST SUCTIONING. HRR, SINUS ON MONITOR, RATE 80S, PRESSURES IMPROVED FROM ARRIVAL TO ER, PULSES FULL X 4 EXTREMITIES, SKIN PALE, WARM AND DRY, TRACE BILAT PEDAL EDEMA IS NOTED, BRISK CAP REFILL. OG IS NOTED IN PLACE AND CLAMPED, ACTIVE BOWEL TONES, ABD SOFT, NO GRIMACING WITH PALPATION. TEMP PROBE MERINO IN PLACE, DRAINING CLEAR YELLOW URINE. IV ACCESS NOTED TO LEFT AC, AND BILAT HANDS, SEE VASCULAR ACCESS CHARTING. PROPOFOL IS PROGRAMMED FOR 100KG AT 60 MCG/KG/MIN WILL TITRATE DOWN PT TOLERATES. RASH IS NOTED TO FOLDS OF GROIN AND BUTTOCKS.
[2020-11-19 03:47] LABS: BASOPHILS ABSOLUTE AUTO 0.01 K/mm3 (0.00-0.23); BASOPHILS PERCENT AUTO 0 % (0-2); EOSINOPHILS ABSOLUTE AUTO 0.03 K/mm3 (0.00-0.68); EOSINOPHILS PERCENT AUTO 1 % (0-6); Hematocrit 24.6 % (33.0-51.0); Hemoglobin 7.6 g/dL (11.5-16.0); IMMATURE GRAN ABSOLUTE AUTO 0.02 K/mm3 (0.00-0.10); IMMATURE GRAN PERCENT AUTO 1 % (0-1); LYMPHOCYTES ABSOLUTE AUTO 0.52 K/mm3 (0.84-5.20); LYMPHOCYTES PERCENT AUTO 12 % (21-46); MONOCYTES ABSOLUTE AUTO 0.63 K/mm3 (0.16-1.47); MONOCYTES PERCENT AUTO 14 % (4-13); Mean Corpuscular HGB 27.9 pg (26.0-34.0); Mean Corpuscular HGB Conc 30.9 g/dL (31.5-36.5); Mean Corpuscular Volume 90 fL (80-100); Mean Platelet Volume 11.2 fL (9.1-12.4); NEUTROPHILS ABSOLUTE AUTO 3.15 K/mm3 (1.96-9.15); NEUTROPHILS PERCENT AUTO 72 % (41-73); Platelet Count 108 K/mm3 (150-400); RDW Coefficient Variation 15.7 % (11.7-14.2); RDW Standard Deviation 51.3 fL (35.1-46.3); Red Blood Cell Count 2.72 M/mm3 (3.80-5.20); White Blood Cell Count 4.36 K/mm3 (4.00-11.30)
[2020-11-19 04:17] LABS: Albumin, Blood 3.1 g/dL (3.4-5.0); Albumin/Globulin Ratio 0.9 (0.8-1.8); Bilirubin, Total 0.2 mg/dL (0.1-1.0); Calcium, Blood 8.4 mg/dL (8.5-10.1); Creatinine, Blood 1.16 mg/dL (0.40-1.00); Globulin, Blood 3.4 g/dL (2.2-4.0); Potassium, Blood 4.2 mmol/L (3.5-5.5); Total Protein, Blood 6.5 g/dL (6.4-8.2)
--- NOTE | 2020-11-19 06:09 | NUR ---
PT NEW ADMIT THIS SHIFT FOR PNEUMONIA WITH RESPIRATORY FAILURE. SHE REMAINS INTUBATED AND SEDATED THIS AM, POLST FORM WAS DISCUSSED WITH DR BAUTISTA AND ORDERS WERE RECEIVED FOR DNR CODE STATUS WELL TO CONTINUE TO ATTEMPT TO CONTACT PT'S DAUGHTER WHO IS L[employer] IN PREVIOUS ADMISSIONS PAPERWORK. PT DOES ANSWER YES/NO QUESTIONS RELIABLY AND NODDED HER HEAD YES WHEN ASKED IF HER DAUGHTER WOULD BE AWAKE NEAR 0530 THIS AM, CALL WAS PLACED AT THAT TIME AND WENT TO [place], MESSAGE LEFT FOR DAUGHTER TO CALL [facility] AT [phone]. PT DID ADMIT TO HAVING THROAT AND BACK PAIN THIS AM AND DR FARNSWORTH WAS NOTIFIED OF PT REPORT OF PAIN WELL NO ORDERED PAIN MEDICATIONS. DR FARNSWORTH DISCUSSED PT SEDATION VIA PROPOFOL AND STATED TO CONTINUE TREATMENT PREVIOUSLY ORDERED, THIS RN CLARIFIED PT'S REPORT OF PAIN WITHOUT ORDERED ANALGESICS, NO PAIN MEDICATION ORDERED. LUNG SOUNDS ARE IMPROVED THIS AM WITH CRACKLES ONLY IN THE BASES, SATS ARE REMAINING GREATER THAN 90% WITH FIO2 AT 35%, VENT SETTINGS ARE OTHERWISE UNCHANGED THROUGHOUT NOC. PROPOFOL TITRATED DOWN TO 40 MCG/KG/MIN RESULTING IN PT AWAKE AND INTERMITTENTLY COUGHING/GAGGING ON TUBE. INCREASED UP TO 45 MCG/KG/MIN WITH SEDATION IMPROVED TO PT ROUSING TO SPOKEN NAME, CONTINUING TO ANSWER YES/NO QUESTIONS AND FOLLOW DIRECTIONS WELL. WILL CONT TO MONITOR AND REPORT TO NEXT SHIFT.
[2020-11-19 08:25] LABS: Percent Saturation 12.4 % (15.0-50.0)
--- NOTE | 2020-11-19 08:40 | NUR ---
ASSUMED CARE REPORT FROM YNES CARVAJAL. PT INTUBATED AND SEDATED AT SHIFT CHANGE. DR GRECO ROUNDED. PT EXTUBATED AT 0809. TOLERATING WELL. PLACED ON 4L VIA NC. O2 SATS MID 90'S. LUNGS CLEAR. WEAK VOICE. A&OX 3. FOLLOWS DIRECTIONS. OGT REMOVED UPON EXTUBATION. ABD ROUND, SOFT, NON TENDER. BT X 4. MERINO PATENT, DRAINING CLEAR YELLOW URINE TO GRAVITY. WILL CONTINUE TO DIURESIS. 1+ EDEMA TO BLE. BP STABLE. SR, RATE 80'S. CALL LIGHT IN REACH. WILL CONTINUE TO MONITOR.
--- NOTE | 2020-11-19 17:08 | NUR ---
SHIFT SUMMARY PT STATUS CHANGED TO MED s TELE THIS SHIFT. O2 AT 4L VIA NC, O2 SATS >94%. LUNGS CLEAR. STRONG VOICE AND COUGH. MANAGING SECRETIONS. BEDSIDE SWALLOW EVAL PASSED. TOLERATING DIET WELL. DIURESED THIS SHIFT, >2L CLEAR YELLOW URINE OUT. MERINO PATENT, DRAINING TO GRAVITY. VSS. WILL CONTINUE TO MONITOR UNTIL TRANSFER OR REPORT TO ONCOMING NURSE.
--- NOTE | 2020-11-19 17:41 | NUR ---
Supportive Visit Spoke with Pt's Primary RN Meg and discussed case. Pt is requesting her home arrangements be documented for future visits. Pt sitting in chair eating dinner. Pt denies pain at this time. Pt reports living at [facility]. She reports concern regarding her ability to do her normal activities and feels that she is needing assistance with some of her ADLs. She states she does'nt feel safe bathing herself and gives her self "Spit Bathes". She states she becomes fatigued and SOB with less disatnce of ambulation. Continued therapeutic listening and answered questions. Pt also reports having arrangements paid at [facility] and is requesting this be documented somewhere in her chart. She does report her daughter Lobo is POA and has copies of the arrangements. Pt is requesting a breathing treatment at this time. Ended visit to allow Pt to rest. Spoke with admitting and requested arrangements documented on Pt's face sheet. Admitting reports this can not be done due to no area or section for this. Spoke with Caremanager Tamar and relayed Pt's concerns regarding her need for caregiver assistance. Tamar will discuss further with Pt. Palliative Care will remain available.
--- NOTE | 2020-11-19 18:48 | NUR ---
TRANSFER TO MEDICAL FLOOR. REPORT TO NANCY CARVAJAL. ALL BELONGINGS c PT.
--- NOTE | 2020-11-19 19:31 | NUR ---
1850 PT TX'D TO RM 326 VIA W/C FROM ICU 6. PLEASANT AND CO-OP. 2P ASSIST GETTING UP OUT OF CHAIR. 1P ASSIST USING FWW, SHORT DISTANCE. A&O, ABLE TO MAKE NEEDS KNOWN. CALL LT IN REACH.
[2020-11-20 05:20] LABS: Hematocrit 24.7 % (33.0-51.0); Mean Corpuscular HGB Conc 32.4 g/dL (31.5-36.5); Mean Corpuscular Volume 86 fL (80-100); Mean Platelet Volume 11.3 fL (9.1-12.4); Platelet Count 125 K/mm3 (150-400); RDW Coefficient Variation 15.4 % (11.7-14.2); Red Blood Cell Count 2.86 M/mm3 (3.80-5.20); White Blood Cell Count 5.69 K/mm3 (4.00-11.30)
[2020-11-20 05:44] LABS: Albumin, Blood 3.3 g/dL (3.4-5.0); Albumin/Globulin Ratio 0.9 (0.8-1.8); Bilirubin, Total 0.2 mg/dL (0.1-1.0); Bun/Creatinine Ratio 27.8 (12.0-20.0); Calcium, Blood 8.9 mg/dL (8.5-10.1); Creatinine, Blood 1.08 mg/dL (0.40-1.00); Globulin, Blood 3.6 g/dL (2.2-4.0); Potassium, Blood 3.7 mmol/L (3.5-5.5); Total Protein, Blood 6.9 g/dL (6.4-8.2)
--- NOTE | 2020-11-20 06:26 | NUR ---
SUMMARY PT HAD ONE EPISODE OF SOB THAT RESOLVED ON ITS OWN. PT DENIES ANY CX PAIN OR SOB THIS AM. PT MERINO IS DRAINING WELL. PT CURRENTLY AWAKE IN NO DISTRESS. CALL LIGHT IN REACH.
--- NOTE | 2020-11-20 12:22 | NUR ---
LIGHTHEADED/SHORTNESS OF BREATH EPISODE AT 0900, WHILE SITTING UP IN CHAIR. BP 141/48, 96% SATURATION, 74 BPM PULSE. EPISOPE RESOLVED SPONTANEOUSLY.
--- NOTE | 2020-11-20 14:17 | NUR ---
[facility] [phone]
[2020-11-21 05:23] LABS: BASOPHILS ABSOLUTE AUTO 0.01 K/mm3 (0.00-0.23); BASOPHILS PERCENT AUTO 0 % (0-2); EOSINOPHILS ABSOLUTE AUTO 0.02 K/mm3 (0.00-0.68); EOSINOPHILS PERCENT AUTO 0 % (0-6); Hematocrit 26.6 % (33.0-51.0); Hemoglobin 8.6 g/dL (11.5-16.0); IMMATURE GRAN ABSOLUTE AUTO 0.05 K/mm3 (0.00-0.10); IMMATURE GRAN PERCENT AUTO 1 % (0-1); LYMPHOCYTES ABSOLUTE AUTO 1.03 K/mm3 (0.84-5.20); LYMPHOCYTES PERCENT AUTO 13 % (21-46); MONOCYTES ABSOLUTE AUTO 1.03 K/mm3 (0.16-1.47); MONOCYTES PERCENT AUTO 13 % (4-13); Mean Corpuscular HGB 28.4 pg (26.0-34.0); Mean Corpuscular HGB Conc 32.3 g/dL (31.5-36.5); Mean Corpuscular Volume 88 fL (80-100); Mean Platelet Volume 10.7 fL (9.1-12.4); NEUTROPHILS ABSOLUTE AUTO 5.67 K/mm3 (1.96-9.15); NEUTROPHILS PERCENT AUTO 73 % (41-73); Platelet Count 120 K/mm3 (150-400); RDW Coefficient Variation 15.6 % (11.7-14.2); RDW Standard Deviation 49.5 fL (35.1-46.3); Red Blood Cell Count 3.03 M/mm3 (3.80-5.20); White Blood Cell Count 7.81 K/mm3 (4.00-11.30)
[2020-11-21 06:08] LABS: Bun/Creatinine Ratio 34.4 (12.0-20.0); Calcium, Blood 9.2 mg/dL (8.5-10.1); Creatinine, Blood 0.99 mg/dL (0.40-1.00); Potassium, Blood 3.4 mmol/L (3.5-5.5)
--- NOTE | 2020-11-21 06:10 | NUR ---
SHIFT SUMMARY: PATIENT IS A&OX4, UP TO THE BATHROOM CONTINUOSLY THROUGH THE NIGHT TO URINATE. BP IS ELEVATED AFTER ACTIVITY. PATIENT IS ALSO SOB WITH ACTIVITY. NO REPORTS OF HEAD ACG OR BLURRED VISION.
[2020-11-21 10:48] LABS: PCO2 Arterial 51.6 mmHg (35-45); PO2 Arterial 89.3 mmHg (80-100); pH Blood Arterial 7.44 (7.35-7.45)
--- NOTE | 2020-11-21 19:10 | NUR ---
OXYGEN WEANING. WEANED TO 1L NC, SATS 90%.
--- NOTE | 2020-11-21 22:09 | NUR ---
AWAKE AT HS. WAS ASSISTED TO BATHROOM BY STAFF AND BACK INTO BED. CALL LIGHT IN REACH. TOLERATED HS MEDS WELL. CALL LIGHT IN REACH
--- NOTE | 2020-11-22 03:59 | NUR ---
FIELD SALES ENGINEER SUMMARY AWAKE AT INTERVALS TO GO TO THE BATHROOM. ONE PERSON ASSIST. HAS VOIDED QS, BUT NO BM OF THIS WRITING. ORIENTED. CALL LIGHT IN REACH. O2 PER NC - 1L/MIN. SATS AROUND 92%.
[2020-11-22 05:28] LABS: Free Thyroxine 1.17 ng/dL (0.70-1.60); Thyroid Stimulating Hormone 3.38 uIU/mL (0.360-4.800); Triiodothyronine, Free 2.32 pg/mL (2.18-3.98)
--- NOTE | 2020-11-22 18:16 | NUR ---
SHIFT SUMMARY- PT IS A/O, PLESANT AND COOPERATIVE. HER APPETITIE IS POOR. SHE WORKED WITH PT TODAY AND TOLERATED WELL. SHE SLEPT INTERMITENTLY THROUGHOUT THIS SHIFT. HER BED IS IN THE LOW POSITION AND CALL LIGHT IS WITIN REACH.
[2020-11-23 05:00] LABS: Bun/Creatinine Ratio 36.4 (12.0-20.0); Calcium, Blood 9.1 mg/dL (8.5-10.1); Creatinine, Blood 1.1 mg/dL (0.40-1.00); Potassium, Blood 3.3 mmol/L (3.5-5.5)
--- NOTE | 2020-11-23 05:42 | NUR ---
SHIFT SUMMARY- PT. A&O, HAD NO COMPLAINTS OF PAIN OR DISCOMFORT T/O THE NIGHT. CALLS APPROPRIATELY. SLEPT MOST OF THE NIGHT, NO APPARENT DISTRESS NOTED. AMBULATES W/WALKER AND SBA TO BATHROOM W/O DIFFICULTY. ON 1L NC, 3L @BASELINE, VSS. DENIES ANY NEEDS AT THIS TIME. CALL LIGHT WITHIN REACH AND SIDE RAILS UPX2. WILL CONT TO MONITOR.
--- NOTE | 2020-11-23 17:51 | NUR ---
SHIFT SUMMARY- PT IS A/O, PLESANT AND COOPERATIVE. HER APPETITIE IS POOR. SHE IS AMBULATING TO THE RESTROOM. SHE SLEPT INTERMITENTLY THROUGHOUT THIS SHIFT. HER BED IS IN THE LOW POSITION AND CALL LIGHT IS WITIN REACH.
--- NOTE | 2020-11-24 04:33 | NUR ---
SHIFT SUMMARY- PT. APPEARED TO HAVE A RESTFUL NIGHT, NO APPARENT DISTRESS NOTED. NO COMPLAINTS OF PAIN OR DISCOMFORT DURING THE NIGHT. ON 0.5L NC, VSS. CALL LIGHT WITHIN REACH AND SIDE RAILS UPX2. WILL CONT TO MONITOR.
[2020-11-24 05:59] LABS: Bun/Creatinine Ratio 31.9 (12.0-20.0); Calcium, Blood 9.1 mg/dL (8.5-10.1); Creatinine, Blood 1.16 mg/dL (0.40-1.00); Potassium, Blood 3.5 mmol/L (3.5-5.5)
--- NOTE | 2020-11-24 19:18 | NUR ---
SHIFT SUMMARY: NO ACUTE EVENTS TO REPORT THIS SHIFT. PT A&O; CALM AND OOPERATIVE WITH CARE. NO C/O PAIN OR NAUSEA THIS SHIFT. ROOM AIR; NO TELE. DIURESIS CONTINUING. AWAITING PLACEMENT. REPORT GIVEN TO ONCOMOING RN.
[2020-11-25 05:13] LABS: BASOPHILS ABSOLUTE AUTO 0.01 K/mm3 (0.00-0.23); BASOPHILS PERCENT AUTO 0 % (0-2); EOSINOPHILS ABSOLUTE AUTO 0.12 K/mm3 (0.00-0.68); EOSINOPHILS PERCENT AUTO 2 % (0-6); Hematocrit 30.6 % (33.0-51.0); Hemoglobin 9.9 g/dL (11.5-16.0); IMMATURE GRAN ABSOLUTE AUTO 0.05 K/mm3 (0.00-0.10); IMMATURE GRAN PERCENT AUTO 1 % (0-1); LYMPHOCYTES ABSOLUTE AUTO 1.36 K/mm3 (0.84-5.20); LYMPHOCYTES PERCENT AUTO 26 % (21-46); MONOCYTES ABSOLUTE AUTO 0.69 K/mm3 (0.16-1.47); MONOCYTES PERCENT AUTO 13 % (4-13); Mean Corpuscular HGB Conc 32.4 g/dL (31.5-36.5); Mean Corpuscular Volume 86 fL (80-100); Mean Platelet Volume 10.7 fL (9.1-12.4); NEUTROPHILS PERCENT AUTO 58 % (41-73); Platelet Count 134 K/mm3 (150-400); RDW Coefficient Variation 15.4 % (11.7-14.2); RDW Standard Deviation 48.8 fL (35.1-46.3); RETICULOCYTE COUNT PERCENT 2.36 % (0.50-2.50); Red Blood Cell Count 3.54 M/mm3 (3.80-5.20); White Blood Cell Count 5.33 K/mm3 (4.00-11.30)
[2020-11-25 05:46] LABS: Creatinine, Blood 1.45 mg/dL (0.40-1.00); Potassium, Blood 3.5 mmol/L (3.5-5.5)
--- NOTE | 2020-11-25 05:49 | NUR ---
SHIFT SUMMARY AOX4. VSS. DENIES N/V. REPORTS SOB, BREATHING TX GIVEN PER RT. SPO2 >90% ON RA. LUNGS DIM IN BASES. RECIEVING DIURETICS. REPORTS 5/10 PAIN IN L SIDE, STATES FROM CHRONIC INTERNAL SHINGLES, MEDICATED 2X c TYLENOL & PT STATED RELIEF. AWAITING SAFE DC PLAN. CALL LIGHT IN REACH & PT ABLE TO MAKE NEEDS KNOWN. WCTM.
[2020-11-25] MEDS ORDERED: AMLO5 PO (15:19)
[2020-11-25] MEDS ORDERED: DOXA4 PO (15:20)
[2020-11-25] MEDS ORDERED: BUME2 PO (15:21)
[2020-11-25] MEDS ORDERED: SPIR50 PO (15:21)
--- NOTE | 2020-11-25 17:28 | NUR ---
DISCHARGE/SHIFT SUMMARY PT DC TO HOME AT [facility] AT APPROX 1725. PT SAFELY ESCORTED OUT VIA WC WITH INSIDE ACCOUNT EXECUTIVE TO TAXI CAB. PT AxOx4. PLEASANT AND COOPERATIVE WITH CARE. PT HAD HOME O2 EVAL BEFORE DC. NEW ORDERS PLACED BY WEARING APPAREL SHAKER PER O2 NEEDS. [facility]CHO DELIVERED O2 TANK TO HOSPITAL FOR PT TRANPORT HOME. PT VERBALIZED WORRY ABOUT RETURNING HOME AND DOING EVERYTHING FOR HERSELF. WEARING APPAREL SHAKER, THIS RN, AND DR CASTELLANOS ALL PROVIDED THERAPEUTIC COMMUNICATION. DC INSTRUCTIONS PROVIDED TO PATIENT INCLUDING HOME HEALTH ORDER INFO, DC MEDICATIONS AND FOLLOW UP APPOINTMENTS. PT VERBALIZES UNDERSTANDING. DAUGHTERBIBIANA CALLED AND SPOKE WITH THIS RN, UPDATED ON PLAN OF CARE. VITALS REVIEWED AND PT DENIED ANY FURTHER QUESTIONS AT THIS TIME. WILL
== END 2020-11-25 17:23 | disposition home health service (06) | DRG 291 ==
LOC: ER 18:55 → ICUW 21:17 → MEDS 21:17 → ICUE 21:17 → MEDS 11-19 18:40
PROVIDERS: Internal Medicine; Student in an Organized Health Care Education/Training Program; ADMIT Internal Medicine
PROC: 0BH17EZ Insertion of Endotracheal Airway into Trachea, Via Natural or Artificial Opening (ICD-10-PCS; principal; 2020-11-18)
PROC: 5A1935Z Respiratory Ventilation, Less than 24 Consecutive Hours (ICD-10-PCS; 2020-11-18)
DX: I13.2 Hypertensive heart and chronic kidney disease with heart failure and with stage 5 chronic kidney disease, or end stage renal disease (principal); I50.31 Acute diastolic (congestive) heart failure; J18.9 Pneumonia, unspecified organism; J96.21 Acute and chronic respiratory failure with hypoxia; I63.89 Other cerebral infarction; Z66 Do not resuscitate; J44.0 Chronic obstructive pulmonary disease with (acute) lower respiratory infection; Z68.41 Body mass index [BMI] 40.0-44.9, adult; N18.5 Chronic kidney disease, stage 5; N17.9 Acute kidney failure, unspecified; E66.2 Morbid (severe) obesity with alveolar hypoventilation; E87.1 Hypo-osmolality and hyponatremia; E11.9 Type 2 diabetes mellitus without complications; E78.5 Hyperlipidemia, unspecified; E87.6 Hypokalemia; M54.9 Dorsalgia, unspecified; M81.0 Age-related osteoporosis without current pathological fracture; K21.9 Gastro-esophageal reflux disease without esophagitis; F41.9 Anxiety disorder, unspecified; I16.0 Hypertensive urgency; I27.20 Pulmonary hypertension, unspecified; D63.1 Anemia in chronic kidney disease; D50.9 Iron deficiency anemia, unspecified; E11.22 Type 2 diabetes mellitus with diabetic chronic kidney disease; G89.29 Other chronic pain; E11.42 Type 2 diabetes mellitus with diabetic polyneuropathy; E11.51 Type 2 diabetes mellitus with diabetic peripheral angiopathy without gangrene; Z79.84 Long term (current) use of oral hypoglycemic drugs; Z79.899 Other long term (current) drug therapy; Z85.3 Personal history of malignant neoplasm of breast; Z99.81 Dependence on supplemental oxygen; Z87.891 Personal history of nicotine dependence; Z98.890 Other specified postprocedural states
CPT/HCPCS: 31500; 36415; 36600; 51702; 71045; 71260; 80048; 80053; 81001; 82728; 82803; 82947; 83540; 83550; 83605; 83880; 84145; 84439; 84443; 84481; 85025; 85027; 85045; 87040; 87070; 87205; 93005; 93010; 94002; 94003; 94640; 94760; 94761; 96361-59; 96365-59; 96375-59; 96376-59; 97110; 97116; 97162; 97530; 99285-25; A9270; J0360; J0456; J0696; J1650; J1940; J1956; J2704; J2916; J2920; J3010; J7030; J7050; J7512; Q9967

== ENCOUNTER 2021-08-25 10:29 | Emergency (ER) | payer MEDICARE, OTHER ==
[~2021-08-25] VITALS: Ht 154.9 cm; Wt 90.7 kg
[~2021-08-25 10:29] MED LIST changes: +AMLO5 PO; +AMLODIPINE BESY10 MG PO; +ANASTROZOLE1 M4 PO; +ATOR10 PO; +BUME2 PO; +BUSPIRONE HCL10 M3 PO; +CILO100 PO; +DOXA4 PO; +FLUTICASONE-SA1 EAC9 INH; +Hair, Skin & N1 EACH PO; +IPRAT-ALBUT 0.5-3 ML INH; +LOVASTATIN40 MG PO; +METFORMIN HCL500 M2 PO; +OMEP20ER PO; +PREGABALIN100 MG PO; +SPIR50 PO
[2021-08-25 11:20] LABS: Base Excess Venous 5.8 mmol/L; Bicarbonate Venous 28.3 mmol/L (24.0-30.0); PCO2 Venous 56.6 mmHg (38-42); pH Blood Venous 7.35 (7.34-7.37)
[2021-08-25 11:34] LABS: BASOPHILS ABSOLUTE AUTO 0.01 K/mm3 (0.00-0.23); BASOPHILS PERCENT AUTO 0 % (0-2); EOSINOPHILS ABSOLUTE AUTO 0.05 K/mm3 (0.00-0.68); EOSINOPHILS PERCENT AUTO 1 % (0-6); Hematocrit 30.4 % (33.0-51.0); Hemoglobin 9.9 g/dL (11.5-16.0); IMMATURE GRAN ABSOLUTE AUTO 0.02 K/mm3 (0.00-0.10); IMMATURE GRAN PERCENT AUTO 1 % (0-1); LYMPHOCYTES ABSOLUTE AUTO 0.56 K/mm3 (0.84-5.20); LYMPHOCYTES PERCENT AUTO 14 % (21-46); MONOCYTES ABSOLUTE AUTO 0.59 K/mm3 (0.16-1.47); MONOCYTES PERCENT AUTO 15 % (4-13); Mean Corpuscular HGB 29.8 pg (26.0-34.0); Mean Corpuscular HGB Conc 32.6 g/dL (31.5-36.5); Mean Corpuscular Volume 92 fL (80-100); NEUTROPHILS ABSOLUTE AUTO 2.66 K/mm3 (1.96-9.15); NEUTROPHILS PERCENT AUTO 68 % (41-73); Platelet Count 117 K/mm3 (150-400); RDW Coefficient Variation 13.8 % (11.7-14.2); RDW Standard Deviation 46.6 fL (35.1-46.3); Red Blood Cell Count 3.32 M/mm3 (3.80-5.20); White Blood Cell Count 3.89 K/mm3 (4.00-11.30)
[2021-08-25 11:59] LABS: Bun/Creatinine Ratio 20.9 (12.0-20.0); Calcium, Blood 9.2 mg/dL (8.5-10.1); Creatinine, Blood 1.15 mg/dL (0.40-1.00); Potassium, Blood 4.5 mmol/L (3.5-5.5)
[2021-08-25] MEDS ORDERED: AMOCLA875 PO (14:26)
[2021-08-25] MEDS ORDERED: PRED20 PO (14:26)
[2021-08-25] MEDS ORDERED: AZIT250 PO (14:26)
== END 2021-08-25 15:54 | disposition home or self-care (01) ==
LOC: ER 10:29
PROVIDERS: Student in an Organized Health Care Education/Training Program
DX: J44.1 Chronic obstructive pulmonary disease with (acute) exacerbation (principal); J18.9 Pneumonia, unspecified organism; E78.5 Hyperlipidemia, unspecified; E11.22 Type 2 diabetes mellitus with diabetic chronic kidney disease; I13.0 Hypertensive heart and chronic kidney disease with heart failure and stage 1 through stage 4 chronic kidney disease, or unspecified chronic kidney disease; N18.30 Chronic kidney disease, stage 3 unspecified; I50.30 Unspecified diastolic (congestive) heart failure; Z87.891 Personal history of nicotine dependence; Z79.899 Other long term (current) drug therapy
CPT/HCPCS: 36415; 71046; 80048; 82803; 83880; 85025; 93005; 93010; 94640; 94664; 96374; 99285-25; A9270; J0696; J7512

== ENCOUNTER 2021-09-02 11:51 | Emergency (ER) | payer MEDICARE, OTHER ==
[~2021-09-02] VITALS: Ht 157.5 cm; Wt 86.2 kg
[~2021-09-02 11:51] MED LIST changes: +AMOCLA875 PO
[2021-09-02 12:34] LABS: BASOPHILS ABSOLUTE AUTO 0.02 K/mm3 (0.00-0.23); BASOPHILS PERCENT AUTO 0 % (0-2); EOSINOPHILS ABSOLUTE AUTO 0.14 K/mm3 (0.00-0.68); EOSINOPHILS PERCENT AUTO 2 % (0-6); Hematocrit 32.9 % (33.0-51.0); Hemoglobin 10.8 g/dL (11.5-16.0); IMMATURE GRAN ABSOLUTE AUTO 0.04 K/mm3 (0.00-0.10); IMMATURE GRAN PERCENT AUTO 1 % (0-1); LYMPHOCYTES ABSOLUTE AUTO 1.11 K/mm3 (0.84-5.20); LYMPHOCYTES PERCENT AUTO 17 % (21-46); MONOCYTES ABSOLUTE AUTO 0.81 K/mm3 (0.16-1.47); MONOCYTES PERCENT AUTO 12 % (4-13); Mean Corpuscular HGB 29.8 pg (26.0-34.0); Mean Corpuscular HGB Conc 32.8 g/dL (31.5-36.5); Mean Corpuscular Volume 91 fL (80-100); NEUTROPHILS ABSOLUTE AUTO 4.51 K/mm3 (1.96-9.15); NEUTROPHILS PERCENT AUTO 68 % (41-73); Platelet Count 137 K/mm3 (150-400); RDW Coefficient Variation 13.2 % (11.7-14.2); RDW Standard Deviation 43.8 fL (35.1-46.3); Red Blood Cell Count 3.62 M/mm3 (3.80-5.20); White Blood Cell Count 6.63 K/mm3 (4.00-11.30)
[2021-09-02 13:06] LABS: Albumin, Blood 3.5 g/dL (3.4-5.0); Bilirubin, Total 0.3 mg/dL (0.1-1.0); Bun/Creatinine Ratio 20.4 (12.0-20.0); Calcium, Blood 8.6 mg/dL (8.5-10.1); Creatinine, Blood 1.13 mg/dL (0.40-1.00); Globulin, Blood 3.6 g/dL (2.2-4.0); Potassium, Blood 4.1 mmol/L (3.5-5.5); Total Protein, Blood 7.1 g/dL (6.4-8.2)
[2021-09-02] MEDS ORDERED: Prednisone50 MG PO (14:08)
== END 2021-09-02 14:35 | disposition home or self-care (01) ==
LOC: ER 11:51
PROVIDERS: Emergency Medicine
DX: J44.1 Chronic obstructive pulmonary disease with (acute) exacerbation (principal); E78.5 Hyperlipidemia, unspecified; N18.30 Chronic kidney disease, stage 3 unspecified; I50.30 Unspecified diastolic (congestive) heart failure; Z87.891 Personal history of nicotine dependence; Z79.899 Other long term (current) drug therapy
CPT/HCPCS: 36415; 71045; 80053; 83880; 85025; 93005; 93010; 94640; 94664; 96374; 99285-25; J1100

== ENCOUNTER 2022-06-06 04:53 | Inpatient (IN) | payer MEDICARE, OTHER ==
[~2022-06-06] VITALS: Ht 157.5 cm; Wt 86.0 kg
[~2022-06-06 04:53] MED LIST changes: +Prednisone50 MG PO
[2022-06-06 05:27] LABS: BASOPHILS ABSOLUTE AUTO 0.03 K/mm3 (0.00-0.23); BASOPHILS PERCENT AUTO 1 % (0-2); EOSINOPHILS ABSOLUTE AUTO 0.17 K/mm3 (0.00-0.68); EOSINOPHILS PERCENT AUTO 3 % (0-6); Hematocrit 33.9 % (33.0-51.0); Hemoglobin 11.2 g/dL (11.5-16.0); IMMATURE GRAN ABSOLUTE AUTO 0.01 K/mm3 (0.00-0.10); IMMATURE GRAN PERCENT AUTO 0 % (0-1); LYMPHOCYTES ABSOLUTE AUTO 1.34 K/mm3 (0.84-5.20); LYMPHOCYTES PERCENT AUTO 25 % (21-46); MONOCYTES ABSOLUTE AUTO 0.59 K/mm3 (0.16-1.47); MONOCYTES PERCENT AUTO 11 % (4-13); Mean Corpuscular HGB 30.2 pg (26.0-34.0); Mean Corpuscular Volume 91 fL (80-100); Mean Platelet Volume 9.6 fL (9.1-12.4); NEUTROPHILS ABSOLUTE AUTO 3.27 K/mm3 (1.96-9.15); NEUTROPHILS PERCENT AUTO 60 % (41-73); Platelet Count 129 K/mm3 (150-400); RDW Coefficient Variation 12.4 % (11.7-14.2); RDW Standard Deviation 41.5 fL (35.1-46.3); Red Blood Cell Count 3.71 M/mm3 (3.80-5.20); White Blood Cell Count 5.41 K/mm3 (4.00-11.30)
[2022-06-06 05:45] LABS: Bun/Creatinine Ratio 21.8 (12.0-20.0); Calcium, Blood 8.7 mg/dL (8.5-10.1); Creatinine, Blood 1.19 mg/dL (0.40-1.00); Magnesium, Blood 2.3 mg/dL (1.6-2.4); Potassium, Blood 4.6 mmol/L (3.5-5.5)
[2022-06-06 05:54] LABS: Base Excess Venous 6.1 mmol/L; Bicarbonate Venous 28.3 mmol/L (24.0-30.0); PCO2 Venous 64.6 mmHg (38-42); PO2 Venous 56.6 mmHg (38-42); pH Blood Venous 7.31 (7.34-7.37)
[2022-06-06 06:23] LABS: Influenza A, PCR NEGATIVE (NEGATIVE); Influenza B, PCR NEGATIVE (NEGATIVE); Resp Syncytial Virus, PCR NEGATIVE (NEGATIVE); SARS-Cov-2 (COVID-19) PCR, MMC NEGATIVE (NEGATIVE)
[2022-06-06] MEDS ORDERED: IPRAT-ALBUT 0.5-3 ML INH (11:26)
--- NOTE | 2022-06-06 17:32 | NUR ---
PT ARRIVED TO ROOM PCU14 AT APROX 1105 THIS AM ON BIPAP FROM ER. PT AWAKE AND ALERT, SEE DOCUMENTED VS AND ASSESSMENT. PT OFF BIPAP APROX A HR LATER, TOLERATING 02 VIA NC AT 4L. PT HAS HAD NO COMPLAINTS SINCE ARRIVAL. GOOD URINE OUTPUT VIA PUREWICK. PT STATES SHE FEELS THAT HER BREATHING HAS IMPROVED SINCE ARRIVING TO HOSPITAL. PT IS ABLE TO USE CALL LIGHT FOR NEEDS, CALL LIGHT IN REACH, WILL CONTINUE TO MONITOR AND GIVE REPORT TO NOC SHIFT RN.
[2022-06-07 04:16] LABS: Bicarbonate Venous 31.8 mmol/L (24.0-30.0); PCO2 Venous 42.6 mmHg (38-42); pH Blood Venous 7.48 (7.34-7.37)
[2022-06-07 04:17] LABS: Base Excess Venous 8.8 mmol/L
[2022-06-07 05:14] LABS: Hematocrit 31.7 % (33.0-51.0); Hemoglobin 10.6 g/dL (11.5-16.0); Mean Corpuscular HGB 30.2 pg (26.0-34.0); Mean Corpuscular HGB Conc 33.4 g/dL (31.5-36.5); Mean Corpuscular Volume 90 fL (80-100); Mean Platelet Volume 10.4 fL (9.1-12.4); Platelet Count 133 K/mm3 (150-400); RDW Coefficient Variation 12.3 % (11.7-14.2); RDW Standard Deviation 40.9 fL (35.1-46.3); Red Blood Cell Count 3.51 M/mm3 (3.80-5.20); White Blood Cell Count 7.78 K/mm3 (4.00-11.30)
--- NOTE | 2022-06-07 06:28 | NUR ---
SHIFT SUMMARY AOX4. VSS. TELE NSR HR 88. DENIES PAIN N/V. REPORTS BREATHING IS "BETTER". SPO2 >92% ON 2L O2 VIA NC, E/U RESP, LS DIM c FINE CRACKLES. VOIDED 700ML THIS SHIFT c PUREWICK IN PLACE, RECIEVING IV BUMEX. +1 EDEMA BLE. CALL LIGHT IN REACH & PT ABLE TO MAKE NEEDS KNOWN.
[2022-06-07 07:22] LABS: Bun/Creatinine Ratio 27.3 (12.0-20.0); Creatinine, Blood 1.1 mg/dL (0.40-1.00); Potassium, Blood 4.2 mmol/L (3.5-5.5)
--- NOTE | 2022-06-07 11:00 | NUR ---
Spiritual care visit conducted. Upon receiving a referral for spiritual care, I visited the patient. She is resting when I enter the room but awakens easily to a light knock on her door. Patient tells me about the events that led to her hospitalization, the improvements she has realized since her admission and the plan of care moving forward. She states that her anxiety goes off the charts when she is "racing for air." She then talks at length about the snf home she lives in and the many activities and social opportunities that she takes advantage of. She does not discuss jainism or family and so I keep my visit on a more surface level allowing her to determine its depth. I normaized her experience, reinforced helpful attitudes and practices and provided therapeutic listening and a calming presence. Patient responds well and displays evidence of an increase in peace
--- NOTE | 2022-06-07 11:59 | NUR ---
UPDATE PT CHANGED TO MEDICAL STATUS. REPORT GIVEN TO TOMASA CARVAJAL TO ASSUME CARE. PT TO BE TAKEN UP BY WC.
--- NOTE | 2022-06-07 17:47 | NUR ---
SHIFT SUMMARY PT TRANSFERRED FROM PCU 14. A/O X4; PLEASANT AND COOPERATIVE WITH CARE. CURRENTLY ON 2 LITERS O2 VIA NC. HOME MEDS RECONCILED AND ORDERED. PUREWICK IN PLACE PER PT'S REQUEST AND URGENT URINATION. VSS. PT APPEARS COMFORTABLE WITH HER CALL LIGHT IN PLACE.
--- NOTE | 2022-06-08 04:42 | NUR ---
END OF SHIFT REPORT Patient had a pleasant night with no acute events. Bilateral buttocks pressure ulcers discovered at the beging of shift during hand off. Patient states she had the wounds on admission. pictures taken and put in chart, CN notified of finding. WOun cleaned wirh ns pat dry and covered with mapelex foam dressing. Patient medicated for pain to buttocks 4/10 with tylernol.
[2022-06-08 04:53] LABS: BASOPHILS ABSOLUTE AUTO 0.01 K/mm3 (0.00-0.23); BASOPHILS PERCENT AUTO 0 % (0-2); EOSINOPHILS PERCENT AUTO 0 % (0-6); Hematocrit 32.3 % (33.0-51.0); IMMATURE GRAN ABSOLUTE AUTO 0.07 K/mm3 (0.00-0.10); IMMATURE GRAN PERCENT AUTO 1 % (0-1); LYMPHOCYTES ABSOLUTE AUTO 0.46 K/mm3 (0.84-5.20); LYMPHOCYTES PERCENT AUTO 5 % (21-46); MONOCYTES ABSOLUTE AUTO 0.38 K/mm3 (0.16-1.47); MONOCYTES PERCENT AUTO 4 % (4-13); Mean Corpuscular HGB 30.3 pg (26.0-34.0); Mean Corpuscular HGB Conc 34.1 g/dL (31.5-36.5); Mean Corpuscular Volume 89 fL (80-100); Mean Platelet Volume 10.4 fL (9.1-12.4); NEUTROPHILS PERCENT AUTO 90 % (41-73); Platelet Count 141 K/mm3 (150-400); RDW Coefficient Variation 12.2 % (11.7-14.2); RDW Standard Deviation 39.8 fL (35.1-46.3); Red Blood Cell Count 3.63 M/mm3 (3.80-5.20); White Blood Cell Count 9.62 K/mm3 (4.00-11.30)
[2022-06-08 05:33] LABS: Albumin, Blood 3.7 g/dL (3.4-5.0); Anion Gap 6 mmol/L (6-16); Blood Urea Nitrogen 38 mg/dL (8-24); Bun/Creatinine Ratio 34.5 (12.0-20.0); CO2, Blood 31 mmol/L (21-32); Calcium, Blood 9.1 mg/dL (8.5-10.1); Chloride, Blood 96 mmol/L (98-108); Glomerular Filtration Rate 49 (60-); Glucose, Blood 169 mg/dL (70-99); Phosphorus, Blood 3.2 mg/dL (2.5-4.9); Sodium, Blood 133 mmol/L (136-145)
--- NOTE | 2022-06-08 11:51 | NUR ---
Spiritual care visit conducted. Patient tells me about her medical improvements and her hopes of returning home tomorrow. I provide encouragement, therapeutic listening and a calming presence. Patient responds well and shows signs of na elevated mood. I will ocontinue to remain available to patient.
--- NOTE | 2022-06-08 17:54 | NUR ---
SHIFT SUMMARY PATIENT IS ALERT AND ORIENTED. PATIENT HAS HAD NO ACUTE EVENTS THIS SHIFT. VITAL SIGNS REVIEWED. PATIENT HAS BEEN TURNED Q2 FOR COCCYX PRESSURE ULCER. PATIENT IS STILL ON 3L NASAL CANNULA SATTING ABOVE 92. PATIENT REQUESTED PUREWICK REMOVED. PATIENT HAS NOT COMPLAINED OF PAIN, NAUSEA, SOB OR VOMITTING THIS SHIFT. BED IN LOCKED AND LOWEST POSITION. CALL LIGHT IN PLACE.
--- NOTE | 2022-06-09 04:37 | NUR ---
END OF SHIFT REPORT Mrs. Crawley had a pleasant night, AOX4, able to make her needs and wishes known. Uses call light, had urgency through the night and assisted to bedside commode approx x6 throgh the sleeping hours. Wound care done to buttocks and covered with mepelex. She was was assisted in offloading bottom with pillows q2hrs. No pain reported during shift. Lungs clear this shift and continues on 2LNC and maintaing sats at 94%.
[2022-06-09] MEDS ORDERED: ALBU2.5V5 INH (10:36)
[2022-06-09] MEDS ORDERED: FLUTICASONE-SA1 EA11 INH (11:24)
[2022-06-09] MEDS ORDERED: Prednisone10 MG PO (11:27)
--- NOTE | 2022-06-09 13:32 | NUR ---
DISCHARGE SUMMARY PATIENT IS ALERT AND ORIENTED. PATIENT HAD NO ACUTE EVENTS THIS SHIFT. PATIENT IS DISCHARGING TO HER HOME AT [facility]. PATIENT IS BEING TRANSPORTED BY [facility].
== END 2022-06-09 13:33 | disposition home or self-care (01) | DRG 291 ==
LOC: ER 04:53 → PCU 08:30 → MEDS 06-07 13:15
PROVIDERS: Family Medicine; Student in an Organized Health Care Education/Training Program; ADMIT Internal Medicine
PROC: 5A09357 Assistance with Respiratory Ventilation, Less than 24 Consecutive Hours, Continuous Positive Airway Pressure (ICD-10-PCS; principal; 2022-06-06)
DX: I13.0 Hypertensive heart and chronic kidney disease with heart failure and stage 1 through stage 4 chronic kidney disease, or unspecified chronic kidney disease (principal); I50.33 Acute on chronic diastolic (congestive) heart failure; J96.21 Acute and chronic respiratory failure with hypoxia; J96.22 Acute and chronic respiratory failure with hypercapnia; J44.1 Chronic obstructive pulmonary disease with (acute) exacerbation; E87.1 Hypo-osmolality and hyponatremia; E87.29 Other acidosis; I47.1 Supraventricular tachycardia; Z66 Do not resuscitate; E11.22 Type 2 diabetes mellitus with diabetic chronic kidney disease; N18.30 Chronic kidney disease, stage 3 unspecified; D63.1 Anemia in chronic kidney disease; D69.6 Thrombocytopenia, unspecified; E11.42 Type 2 diabetes mellitus with diabetic polyneuropathy; E11.51 Type 2 diabetes mellitus with diabetic peripheral angiopathy without gangrene; I27.20 Pulmonary hypertension, unspecified; E78.5 Hyperlipidemia, unspecified; L89.322 Pressure ulcer of left buttock, stage 2; L89.312 Pressure ulcer of right buttock, stage 2; M54.9 Dorsalgia, unspecified; G89.29 Other chronic pain; M85.80 Other specified disorders of bone density and structure, unspecified site; E66.9 Obesity, unspecified; M81.0 Age-related osteoporosis without current pathological fracture; K21.9 Gastro-esophageal reflux disease without esophagitis; Z20.822 Contact with and (suspected) exposure to COVID-19; F41.9 Anxiety disorder, unspecified; Z99.81 Dependence on supplemental oxygen; Z85.3 Personal history of malignant neoplasm of breast; Z88.2 Allergy status to sulfonamides; Z88.1 Allergy status to other antibiotic agents; Z88.8 Allergy status to other drugs, medicaments and biological substances; Z79.899 Other long term (current) drug therapy; Z68.36 Body mass index [BMI] 36.0-36.9, adult; Z79.52 Long term (current) use of systemic steroids; Z79.2 Long term (current) use of antibiotics; Z98.890 Other specified postprocedural states; Z87.891 Personal history of nicotine dependence; Z98.42 Cataract extraction status, left eye; Z98.41 Cataract extraction status, right eye
CPT/HCPCS: 0241U; 36415; 71045; 80048; 80069; 82803; 82947; 83735; 83880; 84145; 85025; 85027; 93005; 93010; 93306; 94640; 94644; 94645; 94660; 94664; 94760; 94762; 96365; 96375; 96376; 97110; 97116; 97161; 97166; 97530; 97535; 99285-25; A9270; J0696; J1650; J2930

== ENCOUNTER 2022-08-23 13:41 | Emergency (ER) | payer MEDICARE, OTHER ==
[~2022-08-23] VITALS: Ht 157.5 cm; Wt 88.9 kg
[~2022-08-23 13:41] MED LIST changes: +ALBU2.5V5 INH; +FLUTICASONE-SA1 EA11 INH
[2022-08-23 14:51] LABS: BASOPHILS ABSOLUTE AUTO 0.03 K/mm3 (0.00-0.23); BASOPHILS PERCENT AUTO 0 % (0-2); EOSINOPHILS ABSOLUTE AUTO 0.02 K/mm3 (0.00-0.68); EOSINOPHILS PERCENT AUTO 0 % (0-6); Hematocrit 27.1 % (33.0-51.0); IMMATURE GRAN ABSOLUTE AUTO 0.04 K/mm3 (0.00-0.10); IMMATURE GRAN PERCENT AUTO 0 % (0-1); LYMPHOCYTES ABSOLUTE AUTO 0.44 K/mm3 (0.84-5.20); LYMPHOCYTES PERCENT AUTO 4 % (21-46); MONOCYTES ABSOLUTE AUTO 0.77 K/mm3 (0.16-1.47); MONOCYTES PERCENT AUTO 7 % (4-13); Mean Corpuscular HGB 30.4 pg (26.0-34.0); Mean Corpuscular HGB Conc 33.2 g/dL (31.5-36.5); Mean Corpuscular Volume 92 fL (80-100); Mean Platelet Volume 9.8 fL (9.1-12.4); NEUTROPHILS ABSOLUTE AUTO 9.41 K/mm3 (1.96-9.15); NEUTROPHILS PERCENT AUTO 88 % (41-73); Platelet Count 129 K/mm3 (150-400); RDW Standard Deviation 43.2 fL (35.1-46.3); Red Blood Cell Count 2.96 M/mm3 (3.80-5.20); White Blood Cell Count 10.71 K/mm3 (4.00-11.30)
[2022-08-23 15:14] LABS: Albumin, Blood 3.8 g/dL (3.4-5.0); Albumin/Globulin Ratio 1.1 (0.8-1.8); Bilirubin, Total 0.4 mg/dL (0.1-1.0); Bun/Creatinine Ratio 24.2 (12.0-20.0); Calcium, Blood 9.1 mg/dL (8.5-10.1); Creatinine, Blood 1.2 mg/dL (0.40-1.00); Globulin, Blood 3.5 g/dL (2.2-4.0); Potassium, Blood 5.1 mmol/L (3.5-5.5); Total Protein, Blood 7.3 g/dL (6.4-8.2)
[2022-08-23] MEDS ORDERED: PRED20 PO (19:21)
== END 2022-08-23 18:30 | disposition home or self-care (01) ==
LOC: ER 13:41
PROVIDERS: Emergency Medicine
DX: J44.1 Chronic obstructive pulmonary disease with (acute) exacerbation (principal); I13.0 Hypertensive heart and chronic kidney disease with heart failure and stage 1 through stage 4 chronic kidney disease, or unspecified chronic kidney disease; E11.22 Type 2 diabetes mellitus with diabetic chronic kidney disease; N18.30 Chronic kidney disease, stage 3 unspecified; I50.32 Chronic diastolic (congestive) heart failure; E11.51 Type 2 diabetes mellitus with diabetic peripheral angiopathy without gangrene; E11.40 Type 2 diabetes mellitus with diabetic neuropathy, unspecified; Z88.1 Allergy status to other antibiotic agents; Z88.2 Allergy status to sulfonamides; Z79.899 Other long term (current) drug therapy; Z99.81 Dependence on supplemental oxygen
CPT/HCPCS: 36415; 71045; 80053; 83880; 84484; 85025; 93005; 93010; 94640; 94664; A9270; J2930

== ENCOUNTER 2022-08-25 14:39 | Emergency (ER) | payer MEDICARE, OTHER ==
[~2022-08-25] VITALS: Ht 157.5 cm; Wt 88.9 kg
[2022-08-25 15:26] LABS: BASOPHILS ABSOLUTE AUTO 0.01 K/mm3 (0.00-0.23); BASOPHILS PERCENT AUTO 0 % (0-2); EOSINOPHILS ABSOLUTE AUTO 0.01 K/mm3 (0.00-0.68); EOSINOPHILS PERCENT AUTO 0 % (0-6); Hematocrit 27.1 % (33.0-51.0); Hemoglobin 8.9 g/dL (11.5-16.0); IMMATURE GRAN ABSOLUTE AUTO 0.03 K/mm3 (0.00-0.10); IMMATURE GRAN PERCENT AUTO 0 % (0-1); LYMPHOCYTES ABSOLUTE AUTO 0.29 K/mm3 (0.84-5.20); LYMPHOCYTES PERCENT AUTO 3 % (21-46); MONOCYTES ABSOLUTE AUTO 0.84 K/mm3 (0.16-1.47); MONOCYTES PERCENT AUTO 9 % (4-13); Mean Corpuscular HGB 29.9 pg (26.0-34.0); Mean Corpuscular HGB Conc 32.8 g/dL (31.5-36.5); Mean Corpuscular Volume 91 fL (80-100); Mean Platelet Volume 9.9 fL (9.1-12.4); NEUTROPHILS ABSOLUTE AUTO 8.73 K/mm3 (1.96-9.15); NEUTROPHILS PERCENT AUTO 88 % (41-73); Platelet Count 148 K/mm3 (150-400); RDW Coefficient Variation 13.1 % (11.7-14.2); RDW Standard Deviation 43.7 fL (35.1-46.3); Red Blood Cell Count 2.98 M/mm3 (3.80-5.20); White Blood Cell Count 9.91 K/mm3 (4.00-11.30)
[2022-08-25 15:48] LABS: Albumin, Blood 3.7 g/dL (3.4-5.0); Albumin/Globulin Ratio 1.1 (0.8-1.8); Bilirubin, Total 0.2 mg/dL (0.1-1.0); Bun/Creatinine Ratio 34.5 (12.0-20.0); Calcium, Blood 9.2 mg/dL (8.5-10.1); Creatinine, Blood 1.19 mg/dL (0.40-1.00); Globulin, Blood 3.4 g/dL (2.2-4.0); Potassium, Blood 4.4 mmol/L (3.5-5.5); Total Protein, Blood 7.1 g/dL (6.4-8.2)
== END 2022-08-25 18:39 | disposition home or self-care (01) ==
LOC: ER 14:39
PROVIDERS: Student in an Organized Health Care Education/Training Program
DX: J44.1 Chronic obstructive pulmonary disease with (acute) exacerbation (principal); R06.82 Tachypnea, not elsewhere classified; I13.0 Hypertensive heart and chronic kidney disease with heart failure and stage 1 through stage 4 chronic kidney disease, or unspecified chronic kidney disease; E11.22 Type 2 diabetes mellitus with diabetic chronic kidney disease; N18.30 Chronic kidney disease, stage 3 unspecified; I50.32 Chronic diastolic (congestive) heart failure; K21.9 Gastro-esophageal reflux disease without esophagitis; Z79.899 Other long term (current) drug therapy; Z79.52 Long term (current) use of systemic steroids; Z88.8 Allergy status to other drugs, medicaments and biological substances
CPT/HCPCS: 71046; 80053; 83880; 84484; 85025; 93005; 93010; 94640; 94664; 96374; 96375; 99285-25

== ENCOUNTER 2022-09-29 10:10 | Inpatient (IN) | payer MEDICARE, OTHER ==
[~2022-09-29] VITALS: Ht 165.1 cm; Wt 86.8 kg
[2022-09-29 11:01] LABS: Base Excess Venous 5.6 mmol/L; pH Blood Venous 7.37 (7.34-7.37)
[2022-09-29 11:02] LABS: Bicarbonate Venous 28.5 mmol/L (24.0-30.0); PCO2 Venous 52 mmHg (38-42)
[2022-09-29 11:16] LABS: Albumin, Blood 3.4 g/dL (3.4-5.0); Albumin/Globulin Ratio 0.9 (0.8-1.8); Bilirubin, Total 0.3 mg/dL (0.1-1.0); Bun/Creatinine Ratio 20.4 (12.0-20.0); Calcium, Blood 8.9 mg/dL (8.5-10.1); Creatinine, Blood 1.13 mg/dL (0.40-1.00); Globulin, Blood 3.6 g/dL (2.2-4.0); Potassium, Blood 4.1 mmol/L (3.5-5.5)
[2022-09-29] MEDS ORDERED: BREZTRI AEROS10.7 GM (11:45)
[2022-09-29 12:20] LABS: Influenza A, PCR NEGATIVE (NEGATIVE); Influenza B, PCR NEGATIVE (NEGATIVE); Resp Syncytial Virus, PCR NEGATIVE (NEGATIVE); SARS-Cov-2 (COVID-19) PCR, MMC NEGATIVE (NEGATIVE)
[2022-09-29] MEDS ORDERED: PRED20 PO (14:34)
[2022-09-29] MEDS ORDERED: AZIT250 PO (16:16)
[2022-09-29] MEDS ORDERED: [UNRECOGNIZED DRUG - OTHER] IV (16:17)
[2022-09-29 21:25] VITALS: BP 144/49
[2022-09-30 06:03] LABS: BASOPHILS PERCENT AUTO 0 % (0-2); EOSINOPHILS PERCENT AUTO 0 % (0-6); Hematocrit 26.1 % (33.0-51.0); Hemoglobin 8.6 g/dL (11.5-16.0); IMMATURE GRAN ABSOLUTE AUTO 0.04 K/mm3 (0.00-0.10); IMMATURE GRAN PERCENT AUTO 1 % (0-1); LYMPHOCYTES ABSOLUTE AUTO 0.44 K/mm3 (0.84-5.20); LYMPHOCYTES PERCENT AUTO 8 % (21-46); MONOCYTES PERCENT AUTO 2 % (4-13); Mean Corpuscular HGB 29.4 pg (26.0-34.0); Mean Corpuscular Volume 89 fL (80-100); Mean Platelet Volume 10.2 fL (9.1-12.4); NEUTROPHILS ABSOLUTE AUTO 4.99 K/mm3 (1.96-9.15); NEUTROPHILS PERCENT AUTO 90 % (41-73); Platelet Count 148 K/mm3 (150-400); RDW Coefficient Variation 12.4 % (11.7-14.2); RDW Standard Deviation 41.1 fL (35.1-46.3); Red Blood Cell Count 2.93 M/mm3 (3.80-5.20); White Blood Cell Count 5.57 K/mm3 (4.00-11.30)
[2022-09-30 07:15] LABS: Albumin, Blood 3.2 g/dL (3.4-5.0); Albumin/Globulin Ratio 0.9 (0.8-1.8); Bilirubin, Total 0.3 mg/dL (0.1-1.0); Bun/Creatinine Ratio 24.1 (12.0-20.0); Creatinine, Blood 1.08 mg/dL (0.40-1.00); Globulin, Blood 3.6 g/dL (2.2-4.0); Potassium, Blood 4.4 mmol/L (3.5-5.5); Total Protein, Blood 6.8 g/dL (6.4-8.2)
[2022-09-30 08:15] VITALS: BP 140/41
[2022-09-30 14:50] VITALS: BP 157/59
[2022-09-30 20:03] VITALS: BP 143/72
[2022-10-01 04:17] VITALS: BP 129/57
[2022-10-01 05:10] LABS: Hematocrit 25.9 % (33.0-51.0); Hemoglobin 8.5 g/dL (11.5-16.0)
[2022-10-01 05:53] LABS: Bun/Creatinine Ratio 33.3 (12.0-20.0); Creatinine, Blood 1.08 mg/dL (0.40-1.00); Potassium, Blood 4.3 mmol/L (3.5-5.5)
[2022-10-01 07:26] VITALS: BP 130/50
[2022-10-01 15:07] VITALS: BP 145/55
[2022-10-01 19:27] VITALS: BP 131/60
[2022-10-02 05:30] VITALS: BP 153/65
[2022-10-02 06:35] LABS: Hematocrit 26.5 % (33.0-51.0); Hemoglobin 8.9 g/dL (11.5-16.0); Mean Corpuscular HGB 29.7 pg (26.0-34.0); Mean Corpuscular HGB Conc 33.6 g/dL (31.5-36.5); Mean Corpuscular Volume 88 fL (80-100); Mean Platelet Volume 10.3 fL (9.1-12.4); Platelet Count 171 K/mm3 (150-400); RDW Coefficient Variation 12.6 % (11.7-14.2); RDW Standard Deviation 40.5 fL (35.1-46.3); White Blood Cell Count 7.77 K/mm3 (4.00-11.30)
[2022-10-02 07:00] LABS: Bun/Creatinine Ratio 38.9 (12.0-20.0); Calcium, Blood 8.8 mg/dL (8.5-10.1); Creatinine, Blood 0.98 mg/dL (0.40-1.00); Potassium, Blood 4.4 mmol/L (3.5-5.5)
[2022-10-02 07:49] VITALS: BP 152/52
[2022-10-02 16:40] VITALS: BP 133/94
[2022-10-02 19:37] VITALS: BP 149/67
[2022-10-03 03:24] VITALS: BP 139/72
[2022-10-03 07:09] VITALS: BP 137/63
[2022-10-03 15:10] VITALS: BP 140/69
[2022-10-03 19:43] VITALS: BP 145/59
[2022-10-04 03:32] VITALS: BP 131/56
[2022-10-04 05:38] LABS: BASOPHILS ABSOLUTE AUTO 0.02 K/mm3 (0.00-0.23); BASOPHILS PERCENT AUTO 0 % (0-2); EOSINOPHILS PERCENT AUTO 0 % (0-6); Hematocrit 29.6 % (33.0-51.0); Hemoglobin 9.9 g/dL (11.5-16.0); IMMATURE GRAN ABSOLUTE AUTO 0.17 K/mm3 (0.00-0.10); IMMATURE GRAN PERCENT AUTO 2 % (0-1); LYMPHOCYTES ABSOLUTE AUTO 0.78 K/mm3 (0.84-5.20); LYMPHOCYTES PERCENT AUTO 10 % (21-46); MONOCYTES PERCENT AUTO 12 % (4-13); Mean Corpuscular HGB 29.5 pg (26.0-34.0); Mean Corpuscular HGB Conc 33.4 g/dL (31.5-36.5); Mean Corpuscular Volume 88 fL (80-100); Mean Platelet Volume 9.8 fL (9.1-12.4); NEUTROPHILS ABSOLUTE AUTO 5.98 K/mm3 (1.96-9.15); NEUTROPHILS PERCENT AUTO 76 % (41-73); Platelet Count 168 K/mm3 (150-400); RDW Coefficient Variation 12.3 % (11.7-14.2); RDW Standard Deviation 39.8 fL (35.1-46.3); Red Blood Cell Count 3.36 M/mm3 (3.80-5.20); White Blood Cell Count 7.85 K/mm3 (4.00-11.30)
[2022-10-04 06:02] LABS: Bun/Creatinine Ratio 45.4 (12.0-20.0); Calcium, Blood 9.1 mg/dL (8.5-10.1); Creatinine, Blood 0.93 mg/dL (0.40-1.00); Potassium, Blood 4.2 mmol/L (3.5-5.5)
[2022-10-04 07:47] VITALS: BP 126/55
[2022-10-04] MEDS ORDERED: PRED20 PO (12:29)
== END 2022-10-04 15:45 | disposition home health service (06) | DRG 189 ==
LOC: ER 10:10 → MEDS 16:04 → ENPENDDIS 10-04 11:58 → MEDS 10-04 15:45
PROVIDERS: Emergency Medicine; Family Medicine; Family Medicine Adult Medicine; ADMIT Internal Medicine
DX: J96.21 Acute and chronic respiratory failure with hypoxia (principal); J44.1 Chronic obstructive pulmonary disease with (acute) exacerbation; I13.0 Hypertensive heart and chronic kidney disease with heart failure and stage 1 through stage 4 chronic kidney disease, or unspecified chronic kidney disease; I50.32 Chronic diastolic (congestive) heart failure; E87.1 Hypo-osmolality and hyponatremia; J96.22 Acute and chronic respiratory failure with hypercapnia; N18.30 Chronic kidney disease, stage 3 unspecified; Z66 Do not resuscitate; Z20.822 Contact with and (suspected) exposure to COVID-19; E11.22 Type 2 diabetes mellitus with diabetic chronic kidney disease; E78.5 Hyperlipidemia, unspecified; G89.29 Other chronic pain; M54.9 Dorsalgia, unspecified; I73.9 Peripheral vascular disease, unspecified; E11.51 Type 2 diabetes mellitus with diabetic peripheral angiopathy without gangrene; D63.1 Anemia in chronic kidney disease; I35.0 Nonrheumatic aortic (valve) stenosis; I27.20 Pulmonary hypertension, unspecified; F41.9 Anxiety disorder, unspecified; E11.40 Type 2 diabetes mellitus with diabetic neuropathy, unspecified; M81.0 Age-related osteoporosis without current pathological fracture; Z99.81 Dependence on supplemental oxygen; Z98.890 Other specified postprocedural states; Z90.12 Acquired absence of left breast and nipple; Z85.3 Personal history of malignant neoplasm of breast; Z87.891 Personal history of nicotine dependence; Z88.2 Allergy status to sulfonamides; Z88.8 Allergy status to other drugs, medicaments and biological substances; Z88.1 Allergy status to other antibiotic agents
CPT/HCPCS: 0241U; 36415; 71046; 80048; 80053; 82803; 82947; 83880; 84145; 84484; 85014; 85018; 85025; 85027; 93005; 93010; 94640; 94644; 94664; 94760; 94762; 96374; 97110; 97162; 97165; 97530; 97535; 99285-25; A9270; J1650; J2930; J7512

== ENCOUNTER 2022-10-26 16:17 | Emergency (ER) | payer MEDICARE, OTHER ==
[~2022-10-26] VITALS: Ht 152.4 cm; Wt 81.7 kg
[~2022-10-26 16:17] MED LIST changes: +BREZTRI AEROS10.7 GM; +[UNRECOGNIZED DRUG - OTHER] IV
[2022-10-26 17:39] LABS: BASOPHILS ABSOLUTE AUTO 0.02 K/mm3 (0.00-0.23); BASOPHILS PERCENT AUTO 1 % (0-2); EOSINOPHILS ABSOLUTE AUTO 0.14 K/mm3 (0.00-0.68); EOSINOPHILS PERCENT AUTO 4 % (0-6); Hematocrit 26.7 % (33.0-51.0); Hemoglobin 8.9 g/dL (11.5-16.0); IMMATURE GRAN ABSOLUTE AUTO 0.01 K/mm3 (0.00-0.10); IMMATURE GRAN PERCENT AUTO 0 % (0-1); LYMPHOCYTES ABSOLUTE AUTO 0.92 K/mm3 (0.84-5.20); LYMPHOCYTES PERCENT AUTO 25 % (21-46); MONOCYTES ABSOLUTE AUTO 0.43 K/mm3 (0.16-1.47); MONOCYTES PERCENT AUTO 12 % (4-13); Mean Corpuscular HGB 29.7 pg (26.0-34.0); Mean Corpuscular HGB Conc 33.3 g/dL (31.5-36.5); Mean Corpuscular Volume 89 fL (80-100); Mean Platelet Volume 9.6 fL (9.1-12.4); NEUTROPHILS ABSOLUTE AUTO 2.22 K/mm3 (1.96-9.15); NEUTROPHILS PERCENT AUTO 59 % (41-73); Platelet Count 126 K/mm3 (150-400); RDW Standard Deviation 42.7 fL (35.1-46.3); White Blood Cell Count 3.74 K/mm3 (4.00-11.30)
[2022-10-26 18:00] LABS: Albumin, Blood 3.5 g/dL (3.4-5.0); Albumin/Globulin Ratio 1.2 (0.8-1.8); Bilirubin, Total 0.2 mg/dL (0.1-1.0); Bun/Creatinine Ratio 24.3 (12.0-20.0); Calcium, Blood 8.7 mg/dL (8.5-10.1); Creatinine, Blood 1.03 mg/dL (0.40-1.00); Globulin, Blood 2.9 g/dL (2.2-4.0); Potassium, Blood 4.8 mmol/L (3.5-5.5); Total Protein, Blood 6.4 g/dL (6.4-8.2)
[2022-10-26 18:22] LABS: Influenza A, PCR NEGATIVE (NEGATIVE); Influenza B, PCR NEGATIVE (NEGATIVE); Resp Syncytial Virus, PCR NEGATIVE (NEGATIVE); SARS-Cov-2 (COVID-19) PCR, MMC NEGATIVE (NEGATIVE)
[2022-10-26] MEDS ORDERED: PRED20 PO (20:53)
[2022-10-26 21:30] VITALS: BP 126/48
== END 2022-10-26 22:15 | disposition home or self-care (01) ==
LOC: ER 16:17
PROVIDERS: Student in an Organized Health Care Education/Training Program
DX: J44.1 Chronic obstructive pulmonary disease with (acute) exacerbation (principal); I13.0 Hypertensive heart and chronic kidney disease with heart failure and stage 1 through stage 4 chronic kidney disease, or unspecified chronic kidney disease; E11.22 Type 2 diabetes mellitus with diabetic chronic kidney disease; N18.30 Chronic kidney disease, stage 3 unspecified; I50.32 Chronic diastolic (congestive) heart failure; E11.40 Type 2 diabetes mellitus with diabetic neuropathy, unspecified; E11.51 Type 2 diabetes mellitus with diabetic peripheral angiopathy without gangrene; Z20.822 Contact with and (suspected) exposure to COVID-19; Z99.81 Dependence on supplemental oxygen; Z88.1 Allergy status to other antibiotic agents; Z88.2 Allergy status to sulfonamides; Z79.899 Other long term (current) drug therapy
CPT/HCPCS: 0241U; 71046; 80053; 83880; 84484; 85025; 94644; 94645; 94664; 96374; 99284-25; J2930

== ENCOUNTER 2022-12-01 21:25 | Emergency (ER) | payer MEDICARE, OTHER ==
[~2022-12-01] VITALS: Ht 154.9 cm; Wt 83.5 kg
[2022-12-01 23:14] LABS: BASOPHILS ABSOLUTE AUTO 0.03 K/mm3 (0.00-0.23); BASOPHILS PERCENT AUTO 0 % (0-2); EOSINOPHILS ABSOLUTE AUTO 0.14 K/mm3 (0.00-0.68); EOSINOPHILS PERCENT AUTO 2 % (0-6); Hematocrit 29.7 % (33.0-51.0); Hemoglobin 9.9 g/dL (11.5-16.0); IMMATURE GRAN ABSOLUTE AUTO 0.04 K/mm3 (0.00-0.10); IMMATURE GRAN PERCENT AUTO 1 % (0-1); LYMPHOCYTES PERCENT AUTO 20 % (21-46); MONOCYTES ABSOLUTE AUTO 0.73 K/mm3 (0.16-1.47); MONOCYTES PERCENT AUTO 10 % (4-13); Mean Corpuscular HGB 29.4 pg (26.0-34.0); Mean Corpuscular HGB Conc 33.3 g/dL (31.5-36.5); Mean Corpuscular Volume 88 fL (80-100); Mean Platelet Volume 10.1 fL (9.1-12.4); NEUTROPHILS ABSOLUTE AUTO 4.95 K/mm3 (1.96-9.15); NEUTROPHILS PERCENT AUTO 67 % (41-73); Platelet Count 125 K/mm3 (150-400); RDW Coefficient Variation 13.4 % (11.7-14.2); RDW Standard Deviation 43.8 fL (35.1-46.3); Red Blood Cell Count 3.37 M/mm3 (3.80-5.20); White Blood Cell Count 7.39 K/mm3 (4.00-11.30)
[2022-12-01 23:33] LABS: Albumin, Blood 3.6 g/dL (3.4-5.0); Albumin/Globulin Ratio 1.2 (0.8-1.8); Bilirubin, Total 0.3 mg/dL (0.1-1.0); Calcium, Blood 8.7 mg/dL (8.5-10.1); Creatinine, Blood 1.03 mg/dL (0.40-1.00); Potassium, Blood 4.7 mmol/L (3.5-5.5); Total Protein, Blood 6.6 g/dL (6.4-8.2)
[2022-12-02 00:30] VITALS: BP 141/44
== END 2022-12-02 00:51 | disposition home or self-care (01) ==
LOC: ER 21:25
PROVIDERS: Student in an Organized Health Care Education/Training Program
DX: R06.02 Shortness of breath (principal); I13.0 Hypertensive heart and chronic kidney disease with heart failure and stage 1 through stage 4 chronic kidney disease, or unspecified chronic kidney disease; E11.22 Type 2 diabetes mellitus with diabetic chronic kidney disease; N18.30 Chronic kidney disease, stage 3 unspecified; I50.32 Chronic diastolic (congestive) heart failure; J44.9 Chronic obstructive pulmonary disease, unspecified; E78.5 Hyperlipidemia, unspecified; Z86.73 Personal history of transient ischemic attack (TIA), and cerebral infarction without residual deficits; Z88.1 Allergy status to other antibiotic agents; Z88.2 Allergy status to sulfonamides; Z79.51 Long term (current) use of inhaled steroids; Z79.52 Long term (current) use of systemic steroids; Z79.899 Other long term (current) drug therapy
CPT/HCPCS: 71046; 80053; 83880; 84484; 85025; 93005; 93010; 94640; 94664; 99284-25

== ENCOUNTER 2022-12-28 13:06 | Inpatient (IN) | payer MEDICARE, OTHER | END 2023-01-01 12:15 | disposition home health service (06) | DRG 291 | LOC: ER 13:06 → MEDS 13:07 | PROVIDERS: ADMIT Student in an Organized Health Care Education/Training Program | DX: I13.0 Hypertensive heart and chronic kidney disease with heart failure and stage 1 through stage 4 chronic kidney disease, or unspecified chronic kidney disease (principal); I50.33 Acute on chronic diastolic (congestive) heart failure; J96.21 Acute and chronic respiratory failure with hypoxia; J96.22 Acute and chronic respiratory failure with hypercapnia; J44.1 Chronic obstructive pulmonary disease with (acute) exacerbation; N18.30 Chronic kidney disease, stage 3 unspecified; Z66 Do not resuscitate; E11.22 Type 2 diabetes mellitus with diabetic chronic kidney disease; R54 Age-related physical debility; E78.5 Hyperlipidemia, unspecified; M54.9 Dorsalgia, unspecified; G89.29 Other chronic pain; E11.40 Type 2 diabetes mellitus with diabetic neuropathy, unspecified; E11.51 Type 2 diabetes mellitus with diabetic peripheral angiopathy without gangrene; M81.0 Age-related osteoporosis without current pathological fracture; K21.9 Gastro-esophageal reflux disease without esophagitis; F41.9 Anxiety disorder, unspecified; W18.30XA Fall on same level, unspecified, initial encounter; E66.9 Obesity, unspecified; I27.20 Pulmonary hypertension, unspecified; M79.642 Pain in left hand; Z20.822 Contact with and (suspected) exposure to COVID-19; Z99.81 Dependence on supplemental oxygen; Z85.3 Personal history of malignant neoplasm of breast; Z87.891 Personal history of nicotine dependence; Z90.12 Acquired absence of left breast and nipple; Z79.811 Long term (current) use of aromatase inhibitors; Z79.51 Long term (current) use of inhaled steroids; Z79.899 Other long term (current) drug therapy; Z79.52 Long term (current) use of systemic steroids; Z98.890 Other specified postprocedural states; Z88.1 Allergy status to other antibiotic agents; Z88.8 Allergy status to other drugs, medicaments and biological substances; Z68.33 Body mass index [BMI] 33.0-33.9, adult ==

== ENCOUNTER 2023-01-13 14:55 | Inpatient (IN) | payer MEDICARE, OTHER ==
[~2023-01-13] VITALS: Ht 157.5 cm; Wt 88.0 kg
[~2023-01-13 14:55] MED LIST changes: -BREZTRI AEROS10.7 GM; +BREZTRI AEROS10.7 GM INH; +DOXY100 PO; +PRED5 PO; +SPIR25 PO; -SPIR50 PO; +Ventolin/Prove6.7 GM INH
[2023-01-13 16:47] LABS: BASOPHILS ABSOLUTE AUTO 0.02 K/mm3 (0.00-0.23); BASOPHILS PERCENT AUTO 0 % (0-2); EOSINOPHILS PERCENT AUTO 1 % (0-6); Hematocrit 28.3 % (33.0-51.0); Hemoglobin 9.1 g/dL (11.5-16.0); IMMATURE GRAN ABSOLUTE AUTO 0.07 K/mm3 (0.00-0.10); IMMATURE GRAN PERCENT AUTO 1 % (0-1); LYMPHOCYTES ABSOLUTE AUTO 0.58 K/mm3 (0.84-5.20); LYMPHOCYTES PERCENT AUTO 7 % (21-46); MONOCYTES ABSOLUTE AUTO 0.77 K/mm3 (0.16-1.47); MONOCYTES PERCENT AUTO 10 % (4-13); Mean Corpuscular HGB 29.9 pg (26.0-34.0); Mean Corpuscular HGB Conc 32.2 g/dL (31.5-36.5); Mean Corpuscular Volume 93 fL (80-100); Mean Platelet Volume 10.2 fL (9.1-12.4); NEUTROPHILS ABSOLUTE AUTO 6.43 K/mm3 (1.96-9.15); NEUTROPHILS PERCENT AUTO 81 % (41-73); Platelet Count 122 K/mm3 (150-400); RDW Coefficient Variation 13.8 % (11.7-14.2); RDW Standard Deviation 47.1 fL (35.1-46.3); Red Blood Cell Count 3.04 M/mm3 (3.80-5.20); White Blood Cell Count 7.97 K/mm3 (4.00-11.30)
[2023-01-13 17:05] LABS: Albumin, Blood 3.4 g/dL (3.4-5.0); Albumin/Globulin Ratio 1.2 (0.8-1.8); Bilirubin, Total 0.3 mg/dL (0.1-1.0); Calcium, Blood 8.7 mg/dL (8.5-10.1); Creatinine, Blood 1.33 mg/dL (0.40-1.00); Globulin, Blood 2.9 g/dL (2.2-4.0); Potassium, Blood 4.8 mmol/L (3.5-5.5); Total Protein, Blood 6.3 g/dL (6.4-8.2)
[2023-01-13 19:09] LABS: Magnesium, Blood 2.3 mg/dL (1.6-2.4); Phosphorus, Blood 3.8 mg/dL (2.5-4.9)
[2023-01-13 19:16] LABS: D-Dimer, Quantitative 1.66 mg/L FEU (0.00-0.52); International Normalized Ratio 0.98; Prothrombin Time Results 10.3 Sec (9.7-11.5)
[2023-01-13 20:08] LABS: Influenza A, PCR NEGATIVE (NEGATIVE); Influenza B, PCR NEGATIVE (NEGATIVE); Resp Syncytial Virus, PCR NEGATIVE (NEGATIVE); SARS-Cov-2 (COVID-19) PCR, MMC NEGATIVE (NEGATIVE)
[2023-01-14 05:28] LABS: BASOPHILS ABSOLUTE AUTO 0.02 K/mm3 (0.00-0.23); BASOPHILS PERCENT AUTO 0 % (0-2); EOSINOPHILS ABSOLUTE AUTO 0.08 K/mm3 (0.00-0.68); EOSINOPHILS PERCENT AUTO 1 % (0-6); Hematocrit 24.9 % (33.0-51.0); Hemoglobin 8.1 g/dL (11.5-16.0); IMMATURE GRAN ABSOLUTE AUTO 0.04 K/mm3 (0.00-0.10); IMMATURE GRAN PERCENT AUTO 1 % (0-1); LYMPHOCYTES ABSOLUTE AUTO 0.68 K/mm3 (0.84-5.20); LYMPHOCYTES PERCENT AUTO 10 % (21-46); MONOCYTES ABSOLUTE AUTO 0.87 K/mm3 (0.16-1.47); MONOCYTES PERCENT AUTO 12 % (4-13); Mean Corpuscular HGB 30.1 pg (26.0-34.0); Mean Corpuscular HGB Conc 32.5 g/dL (31.5-36.5); Mean Corpuscular Volume 93 fL (80-100); Mean Platelet Volume 11.7 fL (9.1-12.4); NEUTROPHILS ABSOLUTE AUTO 5.43 K/mm3 (1.96-9.15); NEUTROPHILS PERCENT AUTO 76 % (41-73); Platelet Count 101 K/mm3 (150-400); RDW Coefficient Variation 14.1 % (11.7-14.2); RDW Standard Deviation 47.6 fL (35.1-46.3); Red Blood Cell Count 2.69 M/mm3 (3.80-5.20); White Blood Cell Count 7.12 K/mm3 (4.00-11.30)
[2023-01-14 05:49] LABS: Albumin, Blood 2.7 g/dL (3.4-5.0); Bilirubin, Total 0.4 mg/dL (0.1-1.0); Bun/Creatinine Ratio 17.6 (12.0-20.0); Creatinine, Blood 0.97 mg/dL (0.40-1.00); Globulin, Blood 2.8 g/dL (2.2-4.0); Potassium, Blood 5.1 mmol/L (3.5-5.5); Total Protein, Blood 5.5 g/dL (6.4-8.2)
[2023-01-14 07:54] VITALS: BP 129/47
[2023-01-14 15:13] VITALS: BP 151/83
--- NOTE | 2023-01-14 16:58 | NUR ---
SHIFT SUMMARY- PT IS A/O, PLESANT AND COOPERATIVE. SHE IS EATING AND DRINKING WELL. PUREWIC IN PLACE AND DRAINING. SHE DECLINED TO WORK WITH PT AND OT THIS SHIFT. PULSE HAS BEEN ELEVATED. HEPRIN WAS D/C THIS SHIFT AND SHE WAS STARTED ON ORAL ANTICOAGULANTS. HER BED IS IN THE LOW POSITION AND CALL LIGHT IS WITIN REACH.
[2023-01-14 20:18] VITALS: BP 117/68
[2023-01-15 04:18] VITALS: BP 121/60
[2023-01-15 05:02] LABS: Hematocrit 27.1 % (33.0-51.0); Hemoglobin 8.6 g/dL (11.5-16.0); Mean Corpuscular HGB 29.3 pg (26.0-34.0); Mean Corpuscular HGB Conc 31.7 g/dL (31.5-36.5); Mean Corpuscular Volume 92 fL (80-100); Mean Platelet Volume 10.5 fL (9.1-12.4); Platelet Count 97 K/mm3 (150-400); RDW Coefficient Variation 13.5 % (11.7-14.2); RDW Standard Deviation 46.5 fL (35.1-46.3); Red Blood Cell Count 2.94 M/mm3 (3.80-5.20); White Blood Cell Count 5.14 K/mm3 (4.00-11.30)
[2023-01-15 05:24] LABS: Bun/Creatinine Ratio 18.3 (12.0-20.0); Calcium, Blood 8.8 mg/dL (8.5-10.1); Creatinine, Blood 0.93 mg/dL (0.40-1.00); Magnesium, Blood 2.3 mg/dL (1.6-2.4); Phosphorus, Blood 3.4 mg/dL (2.5-4.9); Potassium, Blood 4.8 mmol/L (3.5-5.5)
--- NOTE | 2023-01-15 06:41 | NUR ---
UPDATE WAS PERFORMING CATHERINE CARE WHEN ANOTHER PT BED ALARM BEGAN GOING OFF. I COVERED THE PT WITH HER BLANKETS, LOWERED THE BED, PLACED CALL LIGHT NEXT TO PT, INFORMED THE PT I WOULD BE BACK TO FINISH CATHERINE CARE AND CLOSED THE DOOR. WHEN I RETURNED, THE PT WAS UPSET AND REQUESTED THE PUREWICK BE PUT BACK IN PLACE. PT EMCOURAGED TO USE THE BEDSIDE COMMODE, BUT SHE REFUSED STATING "SHE CAN NOT GET UP" NEW PUREWICK PLACED, CATHERINE CARE COMPLETED, CALL LIGHT WITHIN REACH. RN NOTIFIED OF SITUATION.
--- NOTE | 2023-01-15 07:37 | NUR ---
SHIFT SUMMARY NO ACUTE CHANGES NOTED THROUGH THE NIGHT. PT IS A&O X4, VSS, SPO2 >95% ON 4 L/MIN, BREATHING TX PRN, TOLERATING PO INTAKE, PUREWICK IN PLACE, CLEAR FINN URINE NOTED, PT DENIES PAIN, BEDSIDE REPORT GIVEN TO DAY RN, CALL LIGHT IN REACH
[2023-01-15 08:25] VITALS: BP 121/57
[2023-01-15 15:25] VITALS: BP 109/59
--- NOTE | 2023-01-15 17:33 | NUR ---
RN NOTIFIED DR. HWANG THAT PT'S HR HAS SUSTAINED ELEVATED FROM ONE TEENS TO 120-130'S SINCE 1445 PER DRAWER IN HAND CAROL ANN. REPLIED W/ "OKAY I'LL TAKE A LOOK." NO NEW ORDERS FOR NOW.
--- NOTE | 2023-01-15 17:41 | NUR ---
SUMMARY- AAOX4. SBA TO BATHROOM. HR HAS SUSTAINED FROM 113-130'S SINCE 1445 (PAST 3 HOURS). MD WAS NOTIFIED. PT IS ASYMPTOMATIC. PT DENIES PAIN THIS SHIFT.
[2023-01-15 19:15] VITALS: BP 134/87
[2023-01-16 04:20] VITALS: BP 133/69
[2023-01-16 04:50] LABS: Hematocrit 26.2 % (33.0-51.0); Hemoglobin 8.7 g/dL (11.5-16.0); Mean Corpuscular HGB 29.7 pg (26.0-34.0); Mean Corpuscular HGB Conc 33.2 g/dL (31.5-36.5); Mean Corpuscular Volume 89 fL (80-100); Mean Platelet Volume 9.7 fL (9.1-12.4); Platelet Count 102 K/mm3 (150-400); RDW Coefficient Variation 13.6 % (11.7-14.2); RDW Standard Deviation 44.9 fL (35.1-46.3); Red Blood Cell Count 2.93 M/mm3 (3.80-5.20); White Blood Cell Count 6.34 K/mm3 (4.00-11.30)
[2023-01-16 05:24] LABS: Anion Gap 6 mmol/L (6-16); Blood Urea Nitrogen 19 mg/dL (8-24); Bun/Creatinine Ratio 20.9 (12.0-20.0); CO2, Blood 29 mmol/L (21-32); Calcium, Blood 8.9 mg/dL (8.5-10.1); Chloride, Blood 101 mmol/L (98-108); Creatinine, Blood 0.91 mg/dL (0.40-1.00); Digoxin (Lanoxin) 2.24 ug/mL (0.80-2.00); Glomerular Filtration Rate 61 (60-); Glucose, Blood 135 mg/dL (70-99); Potassium, Blood 4.2 mmol/L (3.5-5.5); Sodium, Blood 136 mmol/L (136-145)
--- NOTE | 2023-01-16 06:07 | NUR ---
MANAGER PRACTICE SUMMARY: A&Ox4. PLEASANT AND COOPERATIVE WITH CARE. CALLS APPROPRIATELY AND IS ABLE TO COMMUNICATE NEEDS EFFECTIVELY. TELE IN PLACE: A-FIB MOST OF NIGHT WITH AVERAGE HR OF 105. ORDERS TO GIVE DIGOXIN IF HR >110 CONSISTENTLY; GIVEN FOR HR ~[address] MERAZ. 0600 DOSE OF DIGOXIN NOT ADMINISTERED D/T APICAL AND RADIAL PULSE 85. 2 SECOND PAUSE IN HR AT 0539. ASYMPTOMATIC AND WAS SLEEPING. LABS DRAWN THIS MORNING; NO CRITICAL VALUES REPORTED AT THIS TIME. CONTINUES WITH 3LPM OXYGEN AND BREATHING TREATMENTS FOR WHEEZE. DYSPNIC WITH EXERTION. CONTINUES TO USE PUREWICK D/T POLYURIA. REPORT TO ONCOMING RN.
[2023-01-16 07:41] VITALS: BP 140/48
[2023-01-16 15:16] VITALS: BP 125/66
--- NOTE | 2023-01-16 18:31 | NUR ---
SUMMARY- NO ACUTE EVENTS THIS SHIFT. PT'S HR RANGED FROM 76-99 BPM TODAY. WELL CONTROLLED HR COMPARED TO YESTERDAY. NO OTHER PT CHANGES. PT STILL ON 3L OXYGEN-BASELINE.
[2023-01-16 19:58] VITALS: BP 135/64
[2023-01-17 03:06] VITALS: BP 131/63
[2023-01-17 05:10] LABS: BASOPHILS ABSOLUTE AUTO 0.01 K/mm3 (0.00-0.23); BASOPHILS PERCENT AUTO 0 % (0-2); EOSINOPHILS ABSOLUTE AUTO 0.04 K/mm3 (0.00-0.68); EOSINOPHILS PERCENT AUTO 1 % (0-6); Hematocrit 26.9 % (33.0-51.0); Hemoglobin 8.9 g/dL (11.5-16.0); IMMATURE GRAN ABSOLUTE AUTO 0.02 K/mm3 (0.00-0.10); IMMATURE GRAN PERCENT AUTO 0 % (0-1); LYMPHOCYTES ABSOLUTE AUTO 0.78 K/mm3 (0.84-5.20); LYMPHOCYTES PERCENT AUTO 14 % (21-46); MONOCYTES ABSOLUTE AUTO 0.48 K/mm3 (0.16-1.47); MONOCYTES PERCENT AUTO 9 % (4-13); Mean Corpuscular HGB 29.6 pg (26.0-34.0); Mean Corpuscular HGB Conc 33.1 g/dL (31.5-36.5); Mean Corpuscular Volume 89 fL (80-100); Mean Platelet Volume 9.8 fL (9.1-12.4); NEUTROPHILS ABSOLUTE AUTO 4.15 K/mm3 (1.96-9.15); NEUTROPHILS PERCENT AUTO 76 % (41-73); Platelet Count 113 K/mm3 (150-400); RDW Coefficient Variation 13.5 % (11.7-14.2); RDW Standard Deviation 44.4 fL (35.1-46.3); Red Blood Cell Count 3.01 M/mm3 (3.80-5.20); White Blood Cell Count 5.48 K/mm3 (4.00-11.30)
[2023-01-17 06:14] LABS: Digoxin (Lanoxin) 1.23 ug/mL (0.80-2.00)
[2023-01-17 06:15] LABS: Anion Gap 5 mmol/L (6-16); Blood Urea Nitrogen 20 mg/dL (8-24); Bun/Creatinine Ratio 21.1 (12.0-20.0); CO2, Blood 30 mmol/L (21-32); Calcium, Blood 8.9 mg/dL (8.5-10.1); Chloride, Blood 99 mmol/L (98-108); Creatinine, Blood 0.95 mg/dL (0.40-1.00); Glomerular Filtration Rate 58 (60-); Glucose, Blood 116 mg/dL (70-99); Potassium, Blood 3.9 mmol/L (3.5-5.5); Sodium, Blood 134 mmol/L (136-145)
--- NOTE | 2023-01-17 06:45 | NUR ---
SUMMARY: PT A/OX4, CALLS APPROPRIATELY TO SPECIFY NEEDS AND IS PLEASANT AND COOPERATIVE W/CARE. SHE'S USES WALKER AND W/C AT BASELINE W/1PA OOB TOLERATED. SHE C/O WEAKNESS AND SOB W/EXERTION SO REMAINED IN BED W/HOB ELEVATED PER PREFERANCE. RT PROVIDED NEBS/BREATHING TX'S PER PT REQUEST AND SHE'S ON 3L O2 PER BASELINE. PT HAS PUREWIC CATH IN PLACE FOR URINARY URGENCY AND WOUND HEALING. MEPILEX IS C/D/I TO STAGE 2 COCCYX SORE W/SURROUNDING EXCORIATION AND REDNESS, TURN SCHEDULE MAINTAINED. SHE REMAINS A.FIB ON TELE AT 70'S-90'S BPM. VSS/AFEBRILE, NO ACUTE CHANGES. POSSIBLE D/C BACK TO [facility] TODAY. WCTM AND REPORT TO DAY RN.
[2023-01-17 07:27] VITALS: BP 125/58
[2023-01-17] MEDS ORDERED: ELIQUIS5 M2 PO (10:01)
[2023-01-17] MEDS ORDERED: DIGOX125 MC1 PO (10:02)
--- NOTE | 2023-01-17 14:52 | NUR ---
DC AT 1300- PT LEFT VIA UV AMBULANCE IN STABLE CONDITION WITH ALL BELONGINGS AFTER SIGNING ALL DC PAPERWORK AND VERBALLY AGREEING TO ALL DC INSTRUCTIONS.
== END 2023-01-17 13:42 | disposition home health service (06) | DRG 189 ==
LOC: ER 14:55 → ERHOLD 14:56 → MEDS 14:56
PROVIDERS: Emergency Medicine; Family Medicine; Internal Medicine; Physician Assistant; ADMIT Student in an Organized Health Care Education/Training Program
DX: J96.21 Acute and chronic respiratory failure with hypoxia (principal); I13.0 Hypertensive heart and chronic kidney disease with heart failure and stage 1 through stage 4 chronic kidney disease, or unspecified chronic kidney disease; I50.32 Chronic diastolic (congestive) heart failure; N17.9 Acute kidney failure, unspecified; J44.1 Chronic obstructive pulmonary disease with (acute) exacerbation; J98.11 Atelectasis; E87.1 Hypo-osmolality and hyponatremia; Z66 Do not resuscitate; Z20.822 Contact with and (suspected) exposure to COVID-19; I48.91 Unspecified atrial fibrillation; N18.30 Chronic kidney disease, stage 3 unspecified; E78.5 Hyperlipidemia, unspecified; I35.0 Nonrheumatic aortic (valve) stenosis; I34.0 Nonrheumatic mitral (valve) insufficiency; I07.1 Rheumatic tricuspid insufficiency; D63.1 Anemia in chronic kidney disease; G89.29 Other chronic pain; E66.9 Obesity, unspecified; M54.9 Dorsalgia, unspecified; I27.20 Pulmonary hypertension, unspecified; E11.22 Type 2 diabetes mellitus with diabetic chronic kidney disease; E11.51 Type 2 diabetes mellitus with diabetic peripheral angiopathy without gangrene; E11.40 Type 2 diabetes mellitus with diabetic neuropathy, unspecified; K21.9 Gastro-esophageal reflux disease without esophagitis; M81.0 Age-related osteoporosis without current pathological fracture; F41.9 Anxiety disorder, unspecified; Z85.3 Personal history of malignant neoplasm of breast; Z98.890 Other specified postprocedural states; Z88.1 Allergy status to other antibiotic agents; Z88.2 Allergy status to sulfonamides; Z88.8 Allergy status to other drugs, medicaments and biological substances; Z99.81 Dependence on supplemental oxygen; Z79.899 Other long term (current) drug therapy; Z79.2 Long term (current) use of antibiotics; Z87.891 Personal history of nicotine dependence; Z68.35 Body mass index [BMI] 35.0-35.9, adult
CPT/HCPCS: 0241U; 36415; 71046; 71260; 80048; 80053; 80162; 82947; 83735; 84100; 84145; 84443; 84484; 85025; 85027; 85379; 85520; 85610; 85730; 93005; 93010; 94640; 94664; 94760; 96361; 96365; 96366; 99285-25; A9270; G0378; J1160; J1644; J7030; J7512; Q9967

== ENCOUNTER 2023-01-30 14:17 | Emergency (ER) | payer MEDICARE, OTHER ==
[~2023-01-30] VITALS: Ht 157.5 cm; Wt 86.2 kg
[~2023-01-30 14:17] MED LIST changes: +DIGOX125 MC1 PO; +ELIQUIS5 M2 PO
[2023-01-30 15:00] VITALS: BP 141/58
[2023-01-30 15:06] LABS: BASOPHILS ABSOLUTE AUTO 0.02 K/mm3 (0.00-0.23); BASOPHILS PERCENT AUTO 0 % (0-2); EOSINOPHILS ABSOLUTE AUTO 0.06 K/mm3 (0.00-0.68); EOSINOPHILS PERCENT AUTO 1 % (0-6); Hematocrit 28.9 % (33.0-51.0); Hemoglobin 9.3 g/dL (11.5-16.0); IMMATURE GRAN ABSOLUTE AUTO 0.07 K/mm3 (0.00-0.10); IMMATURE GRAN PERCENT AUTO 1 % (0-1); LYMPHOCYTES PERCENT AUTO 11 % (21-46); MONOCYTES ABSOLUTE AUTO 0.73 K/mm3 (0.16-1.47); MONOCYTES PERCENT AUTO 11 % (4-13); Mean Corpuscular HGB 29.6 pg (26.0-34.0); Mean Corpuscular HGB Conc 32.2 g/dL (31.5-36.5); Mean Corpuscular Volume 92 fL (80-100); Mean Platelet Volume 9.5 fL (9.1-12.4); NEUTROPHILS ABSOLUTE AUTO 5.01 K/mm3 (1.96-9.15); NEUTROPHILS PERCENT AUTO 76 % (41-73); Platelet Count 182 K/mm3 (150-400); RDW Coefficient Variation 13.4 % (11.7-14.2); Red Blood Cell Count 3.14 M/mm3 (3.80-5.20); White Blood Cell Count 6.59 K/mm3 (4.00-11.30)
[2023-01-30 15:32] LABS: Albumin, Blood 3.4 g/dL (3.4-5.0); Albumin/Globulin Ratio 1.2 (0.8-1.8); Bilirubin, Total 0.3 mg/dL (0.1-1.0); Bun/Creatinine Ratio 21.7 (12.0-20.0); Calcium, Blood 8.7 mg/dL (8.5-10.1); Creatinine, Blood 1.2 mg/dL (0.40-1.00); Globulin, Blood 2.9 g/dL (2.2-4.0); Potassium, Blood 4.6 mmol/L (3.5-5.5); Total Protein, Blood 6.3 g/dL (6.4-8.2)
== END 2023-01-30 17:12 | disposition home or self-care (01) ==
LOC: ER 14:17
PROVIDERS: Emergency Medicine
DX: I48.20 Chronic atrial fibrillation, unspecified (principal); J44.9 Chronic obstructive pulmonary disease, unspecified; E78.5 Hyperlipidemia, unspecified; I13.0 Hypertensive heart and chronic kidney disease with heart failure and stage 1 through stage 4 chronic kidney disease, or unspecified chronic kidney disease; E11.22 Type 2 diabetes mellitus with diabetic chronic kidney disease; N18.30 Chronic kidney disease, stage 3 unspecified; I50.32 Chronic diastolic (congestive) heart failure; E11.40 Type 2 diabetes mellitus with diabetic neuropathy, unspecified; Z88.8 Allergy status to other drugs, medicaments and biological substances; Z88.2 Allergy status to sulfonamides; Z85.3 Personal history of malignant neoplasm of breast; Z79.01 Long term (current) use of anticoagulants; Z79.51 Long term (current) use of inhaled steroids; Z79.52 Long term (current) use of systemic steroids; Z79.899 Other long term (current) drug therapy
CPT/HCPCS: 71046; 80053; 80162; 84484; 85025; 93005; 93010; 99284-25

== ENCOUNTER 2023-01-31 18:51 | Emergency (ER) | payer MEDICARE, OTHER ==
[~2023-01-31] VITALS: Ht 157.5 cm; Wt 88.0 kg
[2023-01-31 19:27] LABS: BASOPHILS ABSOLUTE AUTO 0.03 K/mm3 (0.00-0.23); BASOPHILS PERCENT AUTO 0 % (0-2); EOSINOPHILS ABSOLUTE AUTO 0.07 K/mm3 (0.00-0.68); EOSINOPHILS PERCENT AUTO 1 % (0-6); Hematocrit 28.4 % (33.0-51.0); Hemoglobin 9.3 g/dL (11.5-16.0); IMMATURE GRAN ABSOLUTE AUTO 0.08 K/mm3 (0.00-0.10); IMMATURE GRAN PERCENT AUTO 1 % (0-1); LYMPHOCYTES ABSOLUTE AUTO 1.01 K/mm3 (0.84-5.20); LYMPHOCYTES PERCENT AUTO 14 % (21-46); MONOCYTES ABSOLUTE AUTO 0.63 K/mm3 (0.16-1.47); MONOCYTES PERCENT AUTO 9 % (4-13); Mean Corpuscular HGB 29.6 pg (26.0-34.0); Mean Corpuscular HGB Conc 32.7 g/dL (31.5-36.5); Mean Corpuscular Volume 90 fL (80-100); Mean Platelet Volume 9.6 fL (9.1-12.4); NEUTROPHILS ABSOLUTE AUTO 5.23 K/mm3 (1.96-9.15); NEUTROPHILS PERCENT AUTO 74 % (41-73); Platelet Count 162 K/mm3 (150-400); RDW Coefficient Variation 13.5 % (11.7-14.2); RDW Standard Deviation 45.3 fL (35.1-46.3); Red Blood Cell Count 3.14 M/mm3 (3.80-5.20); White Blood Cell Count 7.05 K/mm3 (4.00-11.30)
[2023-01-31 19:40] LABS: Albumin, Blood 3.5 g/dL (3.4-5.0); Albumin/Globulin Ratio 1.2 (0.8-1.8); Bilirubin, Total 0.3 mg/dL (0.1-1.0); Bun/Creatinine Ratio 21.4 (12.0-20.0); Calcium, Blood 9.1 mg/dL (8.5-10.1); Creatinine, Blood 1.31 mg/dL (0.40-1.00); Potassium, Blood 4.5 mmol/L (3.5-5.5); Total Protein, Blood 6.5 g/dL (6.4-8.2)
[2023-01-31 21:15] VITALS: BP 170/80
== END 2023-01-31 22:31 | disposition home or self-care (01) ==
LOC: ER 18:51
PROVIDERS: Student in an Organized Health Care Education/Training Program
DX: I48.20 Chronic atrial fibrillation, unspecified (principal); I13.0 Hypertensive heart and chronic kidney disease with heart failure and stage 1 through stage 4 chronic kidney disease, or unspecified chronic kidney disease; E11.22 Type 2 diabetes mellitus with diabetic chronic kidney disease; N18.30 Chronic kidney disease, stage 3 unspecified; I50.32 Chronic diastolic (congestive) heart failure; Z88.1 Allergy status to other antibiotic agents; Z88.2 Allergy status to sulfonamides; Z79.899 Other long term (current) drug therapy; Z79.811 Long term (current) use of aromatase inhibitors; Z79.51 Long term (current) use of inhaled steroids; Z79.52 Long term (current) use of systemic steroids; Z79.01 Long term (current) use of anticoagulants; J44.9 Chronic obstructive pulmonary disease, unspecified; Z99.81 Dependence on supplemental oxygen
CPT/HCPCS: 80053; 84484; 85025; 93005; 93010; 96374; 99284-25; A9270; J1160

== ENCOUNTER 2023-02-10 10:21 | Emergency (ER) | payer MEDICARE, OTHER ==
[~2023-02-10] VITALS: Ht 157.5 cm; Wt 88.9 kg
[2023-02-10 10:26] VITALS: BP 96/22
[2023-02-10 11:09] LABS: BASOPHILS ABSOLUTE AUTO 0.04 K/mm3 (0.00-0.23); BASOPHILS PERCENT AUTO 1 % (0-2); EOSINOPHILS PERCENT AUTO 1 % (0-6); Hematocrit 31.7 % (33.0-51.0); Hemoglobin 10.1 g/dL (11.5-16.0); IMMATURE GRAN ABSOLUTE AUTO 0.06 K/mm3 (0.00-0.10); IMMATURE GRAN PERCENT AUTO 1 % (0-1); LYMPHOCYTES ABSOLUTE AUTO 1.34 K/mm3 (0.84-5.20); LYMPHOCYTES PERCENT AUTO 16 % (21-46); MONOCYTES ABSOLUTE AUTO 1.23 K/mm3 (0.16-1.47); MONOCYTES PERCENT AUTO 15 % (4-13); Mean Corpuscular HGB 29.4 pg (26.0-34.0); Mean Corpuscular HGB Conc 31.9 g/dL (31.5-36.5); Mean Corpuscular Volume 92 fL (80-100); NEUTROPHILS ABSOLUTE AUTO 5.68 K/mm3 (1.96-9.15); NEUTROPHILS PERCENT AUTO 67 % (41-73); Platelet Count 204 K/mm3 (150-400); RDW Standard Deviation 47.7 fL (35.1-46.3); Red Blood Cell Count 3.43 M/mm3 (3.80-5.20); White Blood Cell Count 8.45 K/mm3 (4.00-11.30)
[2023-02-10 11:13] LABS: Albumin, Blood 3.5 g/dL (3.4-5.0); Albumin/Globulin Ratio 1.1 (0.8-1.8); Bilirubin, Total 0.2 mg/dL (0.1-1.0); Calcium, Blood 8.7 mg/dL (8.5-10.1); Creatinine, Blood 1.16 mg/dL (0.40-1.00); Globulin, Blood 3.1 g/dL (2.2-4.0); Potassium, Blood 4.8 mmol/L (3.5-5.5); Total Protein, Blood 6.6 g/dL (6.4-8.2)
== END 2023-02-10 14:15 | disposition home or self-care (01) ==
LOC: ER 10:21
PROVIDERS: Physician Assistant
DX: J44.1 Chronic obstructive pulmonary disease with (acute) exacerbation (principal); Z87.891 Personal history of nicotine dependence; Z88.2 Allergy status to sulfonamides; Z88.1 Allergy status to other antibiotic agents; Z79.899 Other long term (current) drug therapy; Z79.52 Long term (current) use of systemic steroids
CPT/HCPCS: 71046; 80053; 85025; 93005; 93010; 99284-25

== ENCOUNTER 2023-02-24 11:56 | Emergency (ER) | payer MEDICARE, OTHER ==
[~2023-02-24] VITALS: Ht 157.5 cm; Wt 83.9 kg
[~2023-02-24 11:56] MED LIST changes: +VISBIOME 112.51 EACH PO
[2023-02-24 13:10] LABS: BASOPHILS ABSOLUTE AUTO 0.02 K/mm3 (0.00-0.23); BASOPHILS PERCENT AUTO 0 % (0-2); EOSINOPHILS ABSOLUTE AUTO 0.16 K/mm3 (0.00-0.68); EOSINOPHILS PERCENT AUTO 2 % (0-6); Hematocrit 34.6 % (33.0-51.0); Hemoglobin 11.1 g/dL (11.5-16.0); IMMATURE GRAN PERCENT AUTO 1 % (0-1); LYMPHOCYTES ABSOLUTE AUTO 1.61 K/mm3 (0.84-5.20); LYMPHOCYTES PERCENT AUTO 16 % (21-46); MONOCYTES ABSOLUTE AUTO 1.16 K/mm3 (0.16-1.47); MONOCYTES PERCENT AUTO 11 % (4-13); Mean Corpuscular HGB 29.6 pg (26.0-34.0); Mean Corpuscular HGB Conc 32.1 g/dL (31.5-36.5); Mean Corpuscular Volume 92 fL (80-100); Mean Platelet Volume 10.2 fL (9.1-12.4); NEUTROPHILS ABSOLUTE AUTO 7.37 K/mm3 (1.96-9.15); NEUTROPHILS PERCENT AUTO 71 % (41-73); Platelet Count 175 K/mm3 (150-400); RDW Coefficient Variation 13.5 % (11.7-14.2); RDW Standard Deviation 46.5 fL (35.1-46.3); Red Blood Cell Count 3.75 M/mm3 (3.80-5.20); White Blood Cell Count 10.42 K/mm3 (4.00-11.30)
[2023-02-24 13:37] LABS: Bun/Creatinine Ratio 32.4 (12.0-20.0); Calcium, Blood 9.2 mg/dL (8.5-10.1); Creatinine, Blood 1.42 mg/dL (0.40-1.00); Potassium, Blood 4.9 mmol/L (3.5-5.5)
[2023-02-24 14:48] VITALS: BP 105/68
== END 2023-02-24 16:25 | disposition home or self-care (01) ==
LOC: ER 11:56
PROVIDERS: Emergency Medicine
DX: J44.1 Chronic obstructive pulmonary disease with (acute) exacerbation (principal); Z99.81 Dependence on supplemental oxygen; I48.91 Unspecified atrial fibrillation; Z88.1 Allergy status to other antibiotic agents; Z88.2 Allergy status to sulfonamides; Z88.8 Allergy status to other drugs, medicaments and biological substances; Z79.899 Other long term (current) drug therapy; E11.40 Type 2 diabetes mellitus with diabetic neuropathy, unspecified; Z85.3 Personal history of malignant neoplasm of breast; I13.0 Hypertensive heart and chronic kidney disease with heart failure and stage 1 through stage 4 chronic kidney disease, or unspecified chronic kidney disease; E78.5 Hyperlipidemia, unspecified; I50.32 Chronic diastolic (congestive) heart failure; K21.9 Gastro-esophageal reflux disease without esophagitis; N18.30 Chronic kidney disease, stage 3 unspecified; E11.22 Type 2 diabetes mellitus with diabetic chronic kidney disease
CPT/HCPCS: 71045; 80048; 84484; 85025; 93005; 93010; 94644; 94664; 96374; 99285-25; A9270; J2930

== ENCOUNTER 2023-02-25 10:55 | Inpatient (IN) | payer MEDICARE, OTHER ==
[~2023-02-25] VITALS: Ht 162.6 cm; Wt 81.2 kg
[2023-02-25 11:19] LABS: BASOPHILS ABSOLUTE AUTO 0.01 K/mm3 (0.00-0.23); BASOPHILS PERCENT AUTO 0 % (0-2); EOSINOPHILS ABSOLUTE AUTO 0.01 K/mm3 (0.00-0.68); EOSINOPHILS PERCENT AUTO 0 % (0-6); Hematocrit 32.3 % (33.0-51.0); Hemoglobin 10.6 g/dL (11.5-16.0); IMMATURE GRAN ABSOLUTE AUTO 0.12 K/mm3 (0.00-0.10); IMMATURE GRAN PERCENT AUTO 1 % (0-1); LYMPHOCYTES ABSOLUTE AUTO 0.62 K/mm3 (0.84-5.20); LYMPHOCYTES PERCENT AUTO 5 % (21-46); MONOCYTES ABSOLUTE AUTO 1.25 K/mm3 (0.16-1.47); MONOCYTES PERCENT AUTO 10 % (4-13); Mean Corpuscular HGB 29.6 pg (26.0-34.0); Mean Corpuscular HGB Conc 32.8 g/dL (31.5-36.5); Mean Corpuscular Volume 90 fL (80-100); Mean Platelet Volume 10.6 fL (9.1-12.4); NEUTROPHILS ABSOLUTE AUTO 10.41 K/mm3 (1.96-9.15); NEUTROPHILS PERCENT AUTO 84 % (41-73); Platelet Count 182 K/mm3 (150-400); RDW Coefficient Variation 13.5 % (11.7-14.2); Red Blood Cell Count 3.58 M/mm3 (3.80-5.20); White Blood Cell Count 12.42 K/mm3 (4.00-11.30)
[2023-02-25 11:41] LABS: Albumin, Blood 3.6 g/dL (3.4-5.0); Albumin/Globulin Ratio 1.1 (0.8-1.8); Bilirubin, Total 0.2 mg/dL (0.1-1.0); Bun/Creatinine Ratio 39.4 (12.0-20.0); Calcium, Blood 9.6 mg/dL (8.5-10.1); Creatinine, Blood 1.37 mg/dL (0.40-1.00); Globulin, Blood 3.3 g/dL (2.2-4.0); Potassium, Blood 5.3 mmol/L (3.5-5.5); Total Protein, Blood 6.9 g/dL (6.4-8.2)
[2023-02-25 14:05] LABS: PCO2 Arterial 37.5 mmHg (35-45); PO2 Arterial 155 mmHg (80-100)
[2023-02-25 14:33] LABS: Digoxin (Lanoxin) 0.32 ug/mL (0.80-2.00)
[2023-02-25 15:51] VITALS: BP 154/94
--- NOTE | 2023-02-25 16:45 | NUR ---
ER ADMIT REPORT RECEIVED FROM MINOR IN THE ER. PT ADMITTED FOR IRREGULAR HR AND SOB. DIUERISING AND ON 3L O2 NC. HR AND BP ELEVATED, METOPROLOL GIVEN IN THE ER. PT HAS PRESSURE ULCERS ON TOP OF BILATERAL BUTTOCKS, MEPILEX IN PLACE ON R BUTTOCK, PRESSURE ULCERS SUSTAINED PRIOR TO ADMISSION, PICTURES IN CHART. PT HAS PUREWICK IN PLACE THAT WAS REQUESTED BY PT IN THE ER DUE TO URGENCY. PT A&OX4 AND ABLE TO MAKE NEEDS KNOWN, ORIENTED TO THE ROOM AND CALLIGHT, AND CALL LIGHT WITHIN REACH.
[2023-02-25 17:40] LABS: SARS-Cov-2 (COVID-19) PCR, MMC NEGATIVE (NEGATIVE)
--- NOTE | 2023-02-25 18:41 | NUR ---
SHIFT SUMMARY PT A&0X4, CONT TO BE IN AFIB AND HAVE AN ELEVATED HR. IV DIDIGOXIN AND METOPROLOL GIVEN DURING SHIFT, HR IN THE 1 TEENS, 120'S. NO ACUTE CHANGES FROM ADMISSION ASSESSMENT. CALL LIGHT WITHIN REACH AND PT ABLE TO MAKE NEEDS KNOWN.
[2023-02-25 19:40] VITALS: BP 116/71
--- NOTE | 2023-02-26 04:47 | NUR ---
SHIFT SUMMARY PT IS A&O4, BEDREST DUE TO WEAKNESS PURIWICK IN PLACE, 2L NC SATS UPPER 90'S, NO COMPLAINTS OF PAIN OR ACUTE OVERNIGHT EVENTS CONTINUE POC
[2023-02-26 05:05] LABS: BASOPHILS ABSOLUTE AUTO 0.01 K/mm3 (0.00-0.23); BASOPHILS PERCENT AUTO 0 % (0-2); EOSINOPHILS ABSOLUTE AUTO 0.02 K/mm3 (0.00-0.68); EOSINOPHILS PERCENT AUTO 0 % (0-6); Hematocrit 30.4 % (33.0-51.0); Hemoglobin 9.8 g/dL (11.5-16.0); IMMATURE GRAN ABSOLUTE AUTO 0.07 K/mm3 (0.00-0.10); IMMATURE GRAN PERCENT AUTO 1 % (0-1); LYMPHOCYTES ABSOLUTE AUTO 0.52 K/mm3 (0.84-5.20); LYMPHOCYTES PERCENT AUTO 7 % (21-46); MONOCYTES ABSOLUTE AUTO 0.24 K/mm3 (0.16-1.47); MONOCYTES PERCENT AUTO 3 % (4-13); Mean Corpuscular HGB 29.6 pg (26.0-34.0); Mean Corpuscular HGB Conc 32.2 g/dL (31.5-36.5); Mean Corpuscular Volume 92 fL (80-100); Mean Platelet Volume 10.7 fL (9.1-12.4); NEUTROPHILS ABSOLUTE AUTO 6.97 K/mm3 (1.96-9.15); NEUTROPHILS PERCENT AUTO 89 % (41-73); Platelet Count 150 K/mm3 (150-400); RDW Coefficient Variation 13.4 % (11.7-14.2); RDW Standard Deviation 45.8 fL (35.1-46.3); Red Blood Cell Count 3.31 M/mm3 (3.80-5.20); White Blood Cell Count 7.83 K/mm3 (4.00-11.30)
[2023-02-26 06:05] LABS: Digoxin (Lanoxin) 1.55 ug/mL (0.80-2.00); Magnesium, Blood 2.3 mg/dL (1.6-2.4)
[2023-02-26 06:06] LABS: Alanine Aminotransfer (ALT/SGP 28 U/L (12-78); Albumin, Blood 3.3 g/dL (3.4-5.0); Albumin/Globulin Ratio 1.1 (0.8-1.8); Alk Phos 44 U/L (50-136); Anion Gap 5 mmol/L (6-16); Aspartate Aminotrans (AST/SGOT 10 U/L (12-37); Bilirubin, Total 0.2 mg/dL (0.1-1.0); Blood Urea Nitrogen 50 mg/dL (8-24); Bun/Creatinine Ratio 40.3 (12.0-20.0); CO2, Blood 31 mmol/L (21-32); Calcium, Blood 8.9 mg/dL (8.5-10.1); Chloride, Blood 98 mmol/L (98-108); Creatinine, Blood 1.24 mg/dL (0.40-1.00); Glomerular Filtration Rate 42 (60-); Glucose, Blood 216 mg/dL (70-99); Phosphorus, Blood 3.2 mg/dL (2.5-4.9); Potassium, Blood 5.1 mmol/L (3.5-5.5); Sodium, Blood 134 mmol/L (136-145); Total Protein, Blood 6.3 g/dL (6.4-8.2)
[2023-02-26 07:20] VITALS: BP 128/66
--- NOTE | 2023-02-26 10:56 | NUR ---
DISCUSSION W/ PT SPOKE TO PT ABOUT POSITIONING AND PRESSURE ULCERS. PT WAS RECEPTIVE AND VERBALIZED UNDERSTANDING. ARIELLA RICHARDS SPOKE TO PT THIS AM PRIOR TO MY DISCUSSION W/ THE PT AND DENIED INTERVENTIONS.
[2023-02-26 15:55] VITALS: BP 151/74
--- NOTE | 2023-02-26 17:08 | NUR ---
PT A&OX4, NO ACUTE CHANGES THIS SHIFT. CALL LIGHT WITHIN REACH AND PT ABLE TO MAKE NEEDS KNOWN.
--- NOTE | 2023-02-26 17:12 | NUR ---
SHIFT SUMMARY PT A&OX4, VSS, NO ACUTE CHANGES THIS SHIFT. CALL LIGHT WITHIN REACH AND PT ABLE TO MAKE NEEDS KNOWN.
[2023-02-26 21:04] VITALS: BP 131/71
[2023-02-26 23:44] VITALS: BP 124/69
--- NOTE | 2023-02-27 04:01 | NUR ---
SHIFT SUMMARY PATIENT A/Ox4, PLEASANT AFFECT. DENIES PAIN NOR DISCOMFORT. CONTINUES ON TELE, AFIB w/RVR, 80-90s. SBA w/FWW FOR TRANSFERS. PIV TO LEFT AC, PATENT, FLUSHING WELL. NO ACUTE CHANGES NOTED OVERNIGHT. BED LOCKED AND IN LOWEST POSITION, CALL LIGHT WITHIN REACH.
[2023-02-27 05:05] VITALS: BP 130/67
[2023-02-27 05:55] LABS: Anion Gap 5 mmol/L (6-16); Blood Urea Nitrogen 54 mg/dL (8-24); Bun/Creatinine Ratio 39.4 (12.0-20.0); CO2, Blood 32 mmol/L (21-32); Calcium, Blood 9.4 mg/dL (8.5-10.1); Chloride, Blood 95 mmol/L (98-108); Creatinine, Blood 1.37 mg/dL (0.40-1.00); Digoxin (Lanoxin) 1.09 ug/mL (0.80-2.00); Glomerular Filtration Rate 37 (60-); Glucose, Blood 229 mg/dL (70-99); Potassium, Blood 4.6 mmol/L (3.5-5.5); Sodium, Blood 132 mmol/L (136-145)
[2023-02-27 07:31] VITALS: BP 156/84
[2023-02-27 13:24] VITALS: BP 153/108
--- NOTE | 2023-02-27 13:34 | NUR ---
CALLED DR. TANG TELEMETRY NOTIFIED MYSELF OF PT BEING IN AFIB W/ HR TRENDING 100S-160S. ASSESSED PT AND PT STATED THAT SHE "FELT FUNNY" AND WARM. TEMP WNL AND BP 153/108. NOTIFIED DR. TANG BY PHONE OF PT STATUS.
[2023-02-27 15:44] VITALS: BP 151/68
--- NOTE | 2023-02-27 18:22 | NUR ---
SHIFT SUMMARY PT A&OX4, HR TRENDED 100S-160S EARLIER IN SHIFT AND DR. TANG ADJUSTED REGIMEN, SEE PREVIOUS NOTE. NO PT COMLAINTS. HR IMPROVED. CALL LIGHT WITHIN REACH AND PT ABLE TO MAKE NEEDS KNOWN.
[2023-02-27 19:44] VITALS: BP 125/77
[2023-02-28 02:20] VITALS: BP 136/70
--- NOTE | 2023-02-28 04:13 | NUR ---
SHIFT SUMMARY: PT IS ALERT AND ORIENTED. PT IS CALM AND COOPERATIVE WITH CARE. PT CALLS APPROPRIATELY. PT IS A STANDBY ASSIST WITH A FWW, NOT OUT OF BED OVERNIGHT. PUREWICK IN PLACE FOR URGENCY. PT ON 1.5 L O2 KEEPING SATS > 90%. PT DENIES PAIN, NAUSEA, VOMITING, AND SOB. PT SLEPT MUCH OF THE NIGHT WHILE NOT DISTURBED. NO ACUTE CHANGES OR COMPLICATIONS THIS SHIFT. POSS DC TO [facility] TODAY.
[2023-02-28 07:48] VITALS: BP 135/76
[2023-02-28 09:34] VITALS: BP 126/59
[2023-02-28 16:24] VITALS: BP 137/77
--- NOTE | 2023-02-28 19:23 | NUR ---
SHIFT SUMMARY- PT HAS HAD NO ACUTE CHANGE T/O THE SHIFT. SHE DOES ENDORSE A SORE THROAT AND HAS BEEN MEDICATED WITH CEPACOL LOZENGE. PT USES 3L O2 AT BASELINE SHE HAS BEEN SATTING [place]ATER [place] 90% ON 2L TODAY. PT CURRENTLY IN BED, CALL LIGHT IN REACH NO S&S OF DISTRESS NOTED. RT AT THE BEDSIDE STARTING BREATHING Tx. BEDSIDE REPORT COMPLETED.
[2023-02-28 20:29] VITALS: BP 137/78
[2023-03-01 02:46] VITALS: BP 163/88
--- NOTE | 2023-03-01 05:59 | NUR ---
SHIFT SUMMARY PATIENT A/Ox4, PLEASANT/COOPERATIVE. C/O SORE THROAT, MEDICATED PER JUL. CONTINUES ON TELE, AFIB w/RVR, 70s. SBA w/FWW FOR TRANSFERS. NO ACUTE CHANGES NOTED OVERNIGHT. BED LOCKED AND IN LOWEST POSITION, CALL LIGHT WITHIN REACH.
[2023-03-01 07:29] VITALS: BP 150/64
--- NOTE | 2023-03-01 08:22 | NUR ---
ASSUMED CARE OF PT. PT COMPLAINS OF SORE THROAT, MEDICATED PER EMAR. AM MEDS ADMINISTERED, NO ACUTE CHANGES AT THIS TIME. NO COMPLAINS OR CONCERNS FROM PT.
[2023-03-01] MEDS ORDERED: DILT180 PO (12:24)
--- NOTE | 2023-03-01 12:54 | NUR ---
SHIFT SUMMARY PT A&OX4 AND CALLS APPROAPRIATELLY. PT MEDICALLY STABLE TO D/C HOME W/ HOME HEALTH CONSULT. VSS. NO ACUTE EVENTS DURING SHIFT. PT TRANSPORTED HOME VIA W/C FROM TRANSPORTATION COMPANY. ALL BELONGINGS ON PT AND OUT OF ROOM. NO QUESTIONS OR CONCERNS FROM PT.
== END 2023-03-01 12:40 | disposition home health service (06) | DRG 189 ==
LOC: ER 10:55 → MEDS 13:45
PROVIDERS: Emergency Medicine; ADMIT Internal Medicine
DX: J96.22 Acute and chronic respiratory failure with hypercapnia (principal); J44.1 Chronic obstructive pulmonary disease with (acute) exacerbation; E87.1 Hypo-osmolality and hyponatremia; I48.20 Chronic atrial fibrillation, unspecified; I13.0 Hypertensive heart and chronic kidney disease with heart failure and stage 1 through stage 4 chronic kidney disease, or unspecified chronic kidney disease; I50.32 Chronic diastolic (congestive) heart failure; J44.0 Chronic obstructive pulmonary disease with (acute) lower respiratory infection; N39.0 Urinary tract infection, site not specified; J96.11 Chronic respiratory failure with hypoxia; E11.22 Type 2 diabetes mellitus with diabetic chronic kidney disease; N18.30 Chronic kidney disease, stage 3 unspecified; E11.51 Type 2 diabetes mellitus with diabetic peripheral angiopathy without gangrene; I27.20 Pulmonary hypertension, unspecified; Z66 Do not resuscitate; E11.40 Type 2 diabetes mellitus with diabetic neuropathy, unspecified; E78.5 Hyperlipidemia, unspecified; M54.9 Dorsalgia, unspecified; G89.29 Other chronic pain; M81.0 Age-related osteoporosis without current pathological fracture; K21.9 Gastro-esophageal reflux disease without esophagitis; Z20.822 Contact with and (suspected) exposure to COVID-19; E11.622 Type 2 diabetes mellitus with other skin ulcer; L89.159 Pressure ulcer of sacral region, unspecified stage; F41.9 Anxiety disorder, unspecified; I08.3 Combined rheumatic disorders of mitral, aortic and tricuspid valves; Z85.3 Personal history of malignant neoplasm of breast; Z98.890 Other specified postprocedural states; Z90.12 Acquired absence of left breast and nipple; Z87.891 Personal history of nicotine dependence; Z88.1 Allergy status to other antibiotic agents; Z88.8 Allergy status to other drugs, medicaments and biological substances; Z79.01 Long term (current) use of anticoagulants; Z79.52 Long term (current) use of systemic steroids; Z99.81 Dependence on supplemental oxygen; Z91.148 Patient's other noncompliance with medication regimen for other reason
CPT/HCPCS: 36415; 36600; 71045; 74018; 80048; 80053; 80162; 82803; 82947; 83036; 83735; 83880; 84100; 84145; 84484; 85025; 93005; 93010; 94640; 94664; 94760; 96365; 96375; 97110; 97161; 97165; 97530; 97535; 99285-25; A9270; J0456; J0696; J1160; J2930; J7050; J7512; U0002

== ENCOUNTER 2023-03-03 10:30 | Emergency (ER) | payer MEDICARE, OTHER ==
[~2023-03-03] VITALS: Ht 157.5 cm; Wt 86.2 kg
[~2023-03-03 10:30] MED LIST changes: +DILT180 PO
[2023-03-03 13:47] LABS: BASOPHILS ABSOLUTE AUTO 0.02 K/mm3 (0.00-0.23); BASOPHILS PERCENT AUTO 0 % (0-2); EOSINOPHILS ABSOLUTE AUTO 0.05 K/mm3 (0.00-0.68); EOSINOPHILS PERCENT AUTO 0 % (0-6); Hematocrit 40.2 % (33.0-51.0); Hemoglobin 13.6 g/dL (11.5-16.0); IMMATURE GRAN ABSOLUTE AUTO 0.23 K/mm3 (0.00-0.10); IMMATURE GRAN PERCENT AUTO 1 % (0-1); LYMPHOCYTES ABSOLUTE AUTO 0.88 K/mm3 (0.84-5.20); LYMPHOCYTES PERCENT AUTO 5 % (21-46); MONOCYTES ABSOLUTE AUTO 0.31 K/mm3 (0.16-1.47); MONOCYTES PERCENT AUTO 2 % (4-13); Mean Corpuscular HGB Conc 33.8 g/dL (31.5-36.5); Mean Corpuscular Volume 89 fL (80-100); Mean Platelet Volume 10.3 fL (9.1-12.4); NEUTROPHILS ABSOLUTE AUTO 14.82 K/mm3 (1.96-9.15); NEUTROPHILS PERCENT AUTO 91 % (41-73); Platelet Count 170 K/mm3 (150-400); RDW Coefficient Variation 13.2 % (11.7-14.2); RDW Standard Deviation 42.9 fL (35.1-46.3); Red Blood Cell Count 4.54 M/mm3 (3.80-5.20); White Blood Cell Count 16.31 K/mm3 (4.00-11.30)
[2023-03-03 14:11] LABS: Albumin, Blood 4.1 g/dL (3.4-5.0); Albumin/Globulin Ratio 1.1 (0.8-1.8); Bilirubin, Total 0.5 mg/dL (0.1-1.0); Bun/Creatinine Ratio 41.6 (12.0-20.0); Calcium, Blood 9.2 mg/dL (8.5-10.1); Creatinine, Blood 1.49 mg/dL (0.40-1.00); Globulin, Blood 3.6 g/dL (2.2-4.0); Magnesium, Blood 2.6 mg/dL (1.6-2.4); Potassium, Blood 4.5 mmol/L (3.5-5.5); Total Protein, Blood 7.7 g/dL (6.4-8.2)
[2023-03-03] MEDS ORDERED: ONDA4ODT MM (14:54)
[2023-03-03 15:00] VITALS: BP 119/54
== END 2023-03-03 16:20 | disposition home or self-care (01) ==
LOC: ER 10:30
PROVIDERS: Student in an Organized Health Care Education/Training Program
DX: J44.9 Chronic obstructive pulmonary disease, unspecified (principal); E86.0 Dehydration; E78.5 Hyperlipidemia, unspecified; I13.0 Hypertensive heart and chronic kidney disease with heart failure and stage 1 through stage 4 chronic kidney disease, or unspecified chronic kidney disease; I50.32 Chronic diastolic (congestive) heart failure; N18.30 Chronic kidney disease, stage 3 unspecified; E11.22 Type 2 diabetes mellitus with diabetic chronic kidney disease; E11.40 Type 2 diabetes mellitus with diabetic neuropathy, unspecified; K21.9 Gastro-esophageal reflux disease without esophagitis; Z88.1 Allergy status to other antibiotic agents; Z79.01 Long term (current) use of anticoagulants; Z79.899 Other long term (current) drug therapy
CPT/HCPCS: 71046; 80053; 83735; 83880; 84145; 85025; 93005; 93010; 94640; 94644; 94664; 96374; 99285-25; A9270; J2405; J7030

== ENCOUNTER 2023-03-05 19:22 | Emergency (ER) | payer MEDICARE, OTHER ==
[~2023-03-05] VITALS: Ht 157.5 cm; Wt 86.2 kg
[~2023-03-05 19:22] MED LIST changes: +ONDA4ODT MM
[2023-03-05] MEDS ORDERED: ALBU90OI INH (19:37)
[2023-03-05] MEDS ORDERED: PRED5 PO (19:39)
[2023-03-05 20:28] LABS: Hematocrit 29.6 % (33.0-51.0); Hemoglobin 9.9 g/dL (11.5-16.0); Mean Corpuscular HGB 29.6 pg (26.0-34.0); Mean Corpuscular HGB Conc 33.4 g/dL (31.5-36.5); Mean Corpuscular Volume 89 fL (80-100); Mean Platelet Volume 10.9 fL (9.1-12.4); Platelet Count 155 K/mm3 (150-400); RDW Coefficient Variation 13.4 % (11.7-14.2); RDW Standard Deviation 43.9 fL (35.1-46.3); Red Blood Cell Count 3.34 M/mm3 (3.80-5.20); White Blood Cell Count 10.97 K/mm3 (4.00-11.30)
[2023-03-05 20:49] LABS: Albumin, Blood 3.2 g/dL (3.4-5.0); Albumin/Globulin Ratio 1.1 (0.8-1.8); Bilirubin, Total 0.3 mg/dL (0.1-1.0); Bun/Creatinine Ratio 41.1 (12.0-20.0); Calcium, Blood 8.5 mg/dL (8.5-10.1); Creatinine, Blood 1.51 mg/dL (0.40-1.00); Globulin, Blood 2.8 g/dL (2.2-4.0); Potassium, Blood 5.2 mmol/L (3.5-5.5)
[2023-03-05 21:07] LABS: BASOPHILS PERCENT MAN 0 % (0-2); EOSINOPHILS PERCENT MAN 0 % (0-6); LYMPHOCYTES ABSOLUTE MAN 0.76 K/mm3 (0.84-5.20); LYMPHOCYTES PERCENT MAN 7 % (21-46); METAMYELOCYTE PERCENT MAN 1 % (0-0); MONOCYTES ABSOLUTE MAN 0.54 K/mm3 (0.16-1.47); MONOCYTES PERCENT MAN 5 % (4-13); MYELOCYTE ABSOLUTE MAN 0.21 K/mm3 (0.00-0.00); MYELOCYTE PERCENT MAN 2 % (0-0); NEUTROPHILS ABSOLUTE MAN 9.32 K/mm3 (1.96-9.15); SEG NEUTROPHILS PERCENT MAN 85 % (41-73); TOTAL CELLS COUNTED 100
[2023-03-05 23:55] VITALS: BP 156/79
== END 2023-03-06 00:53 | disposition home or self-care (01) ==
LOC: ER 19:22
PROVIDERS: Emergency Medicine
DX: I13.0 Hypertensive heart and chronic kidney disease with heart failure and stage 1 through stage 4 chronic kidney disease, or unspecified chronic kidney disease (principal); N18.30 Chronic kidney disease, stage 3 unspecified; I50.9 Heart failure, unspecified; Z88.1 Allergy status to other antibiotic agents; Z88.2 Allergy status to sulfonamides; Z79.899 Other long term (current) drug therapy; Z79.82 Long term (current) use of aspirin; Z85.3 Personal history of malignant neoplasm of breast; J44.9 Chronic obstructive pulmonary disease, unspecified; I48.91 Unspecified atrial fibrillation; Z87.891 Personal history of nicotine dependence
CPT/HCPCS: 71045; 80053; 83880; 84484; 85025; 93005; 93010; 94644; 94664; 99284-25

== ENCOUNTER 2023-03-09 11:22 | Emergency (ER) | payer MEDICARE, OTHER ==
[~2023-03-09] VITALS: Ht 157.5 cm; Wt 86.2 kg
[2023-03-09 12:09] LABS: BASOPHILS ABSOLUTE AUTO 0.01 K/mm3 (0.00-0.23); BASOPHILS PERCENT AUTO 0 % (0-2); EOSINOPHILS ABSOLUTE AUTO 0.16 K/mm3 (0.00-0.68); EOSINOPHILS PERCENT AUTO 1 % (0-6); Hematocrit 31.1 % (33.0-51.0); Hemoglobin 10.1 g/dL (11.5-16.0); IMMATURE GRAN ABSOLUTE AUTO 0.11 K/mm3 (0.00-0.10); IMMATURE GRAN PERCENT AUTO 1 % (0-1); LYMPHOCYTES ABSOLUTE AUTO 1.47 K/mm3 (0.84-5.20); LYMPHOCYTES PERCENT AUTO 12 % (21-46); MONOCYTES ABSOLUTE AUTO 1.21 K/mm3 (0.16-1.47); MONOCYTES PERCENT AUTO 10 % (4-13); Mean Corpuscular HGB 29.5 pg (26.0-34.0); Mean Corpuscular HGB Conc 32.5 g/dL (31.5-36.5); Mean Corpuscular Volume 91 fL (80-100); NEUTROPHILS ABSOLUTE AUTO 9.77 K/mm3 (1.96-9.15); NEUTROPHILS PERCENT AUTO 77 % (41-73); Platelet Count 170 K/mm3 (150-400); RDW Coefficient Variation 13.7 % (11.7-14.2); RDW Standard Deviation 45.3 fL (35.1-46.3); Red Blood Cell Count 3.42 M/mm3 (3.80-5.20); White Blood Cell Count 12.73 K/mm3 (4.00-11.30)
[2023-03-09 12:23] LABS: Bun/Creatinine Ratio 27.7 (12.0-20.0); Calcium, Blood 8.8 mg/dL (8.5-10.1); Creatinine, Blood 1.3 mg/dL (0.40-1.00); Potassium, Blood 4.9 mmol/L (3.5-5.5)
[2023-03-09] MEDS ORDERED: ONDA4 PO (12:40)
[2023-03-09] MEDS ORDERED: ENTRESTO 49 MG1 EACH PO (12:40)
[2023-03-09 13:45] VITALS: BP 151/63
== END 2023-03-09 13:55 | disposition home or self-care (01) ==
LOC: ER 11:22
PROVIDERS: Emergency Medicine
DX: J44.1 Chronic obstructive pulmonary disease with (acute) exacerbation (principal); I48.91 Unspecified atrial fibrillation; F41.9 Anxiety disorder, unspecified; E11.40 Type 2 diabetes mellitus with diabetic neuropathy, unspecified; I13.0 Hypertensive heart and chronic kidney disease with heart failure and stage 1 through stage 4 chronic kidney disease, or unspecified chronic kidney disease; I50.32 Chronic diastolic (congestive) heart failure; N18.30 Chronic kidney disease, stage 3 unspecified; D72.829 Elevated white blood cell count, unspecified; D63.1 Anemia in chronic kidney disease; Z88.1 Allergy status to other antibiotic agents; Z88.2 Allergy status to sulfonamides; Z79.52 Long term (current) use of systemic steroids; Z79.899 Other long term (current) drug therapy; Z79.51 Long term (current) use of inhaled steroids; Z79.01 Long term (current) use of anticoagulants; Z99.81 Dependence on supplemental oxygen
CPT/HCPCS: 71045; 80048; 85025; 93005; 93010; 94640; 94664; 96374; 99285-25; J2930

== ENCOUNTER 2023-03-19 02:07 | Emergency (ER) | payer MEDICARE, OTHER ==
[~2023-03-19] VITALS: Ht 157.5 cm; Wt 86.2 kg
[~2023-03-19 02:07] MED LIST changes: +ENTRESTO 49 MG1 EACH PO
[2023-03-19 02:38] LABS: BASOPHILS ABSOLUTE AUTO 0.01 K/mm3 (0.00-0.23); BASOPHILS PERCENT AUTO 0 % (0-2); EOSINOPHILS ABSOLUTE AUTO 0.12 K/mm3 (0.00-0.68); EOSINOPHILS PERCENT AUTO 2 % (0-6); Hematocrit 31.9 % (33.0-51.0); Hemoglobin 10.4 g/dL (11.5-16.0); IMMATURE GRAN ABSOLUTE AUTO 0.08 K/mm3 (0.00-0.10); IMMATURE GRAN PERCENT AUTO 1 % (0-1); LYMPHOCYTES ABSOLUTE AUTO 1.37 K/mm3 (0.84-5.20); LYMPHOCYTES PERCENT AUTO 20 % (21-46); MONOCYTES ABSOLUTE AUTO 0.72 K/mm3 (0.16-1.47); MONOCYTES PERCENT AUTO 10 % (4-13); Mean Corpuscular HGB Conc 32.6 g/dL (31.5-36.5); Mean Corpuscular Volume 92 fL (80-100); Mean Platelet Volume 9.8 fL (9.1-12.4); NEUTROPHILS ABSOLUTE AUTO 4.64 K/mm3 (1.96-9.15); NEUTROPHILS PERCENT AUTO 67 % (41-73); Platelet Count 158 K/mm3 (150-400); RDW Coefficient Variation 13.7 % (11.7-14.2); RDW Standard Deviation 45.9 fL (35.1-46.3); Red Blood Cell Count 3.47 M/mm3 (3.80-5.20); White Blood Cell Count 6.94 K/mm3 (4.00-11.30)
[2023-03-19 03:05] LABS: Albumin, Blood 3.5 g/dL (3.4-5.0); Bilirubin, Total 0.4 mg/dL (0.1-1.0); Bun/Creatinine Ratio 25.2 (12.0-20.0); Calcium, Blood 9.2 mg/dL (8.5-10.1); Creatinine, Blood 1.39 mg/dL (0.40-1.00); Globulin, Blood 3.4 g/dL (2.2-4.0); Total Protein, Blood 6.9 g/dL (6.4-8.2)
[2023-03-19] MEDS ORDERED: FAMO20 PO (05:19)
[2023-03-19 05:34] VITALS: BP 137/78
== END 2023-03-19 06:52 | disposition home or self-care (01) ==
LOC: ER 02:07
PROVIDERS: Student in an Organized Health Care Education/Training Program
DX: R10.12 Left upper quadrant pain (principal); Z87.891 Personal history of nicotine dependence; Z88.1 Allergy status to other antibiotic agents; Z79.51 Long term (current) use of inhaled steroids; Z79.899 Other long term (current) drug therapy; J44.9 Chronic obstructive pulmonary disease, unspecified; E78.5 Hyperlipidemia, unspecified; K21.9 Gastro-esophageal reflux disease without esophagitis; I48.91 Unspecified atrial fibrillation; E11.40 Type 2 diabetes mellitus with diabetic neuropathy, unspecified; I13.0 Hypertensive heart and chronic kidney disease with heart failure and stage 1 through stage 4 chronic kidney disease, or unspecified chronic kidney disease; E11.22 Type 2 diabetes mellitus with diabetic chronic kidney disease; N18.30 Chronic kidney disease, stage 3 unspecified; I50.32 Chronic diastolic (congestive) heart failure; Z79.01 Long term (current) use of anticoagulants
CPT/HCPCS: 74177; 80053; 83690; 85025; 93005; 93010; 96374-59; 99284-25; A9270; J2405; Q9967

== ENCOUNTER 2023-03-26 00:12 | Inpatient (IN) | payer MEDICARE, OTHER ==
[~2023-03-26] VITALS: Ht 157.5 cm; Wt 124.3 kg
[~2023-03-26 00:12] MED LIST changes: +ENTRESTO 24 MG1 EACH PO; -ENTRESTO 49 MG1 EACH PO; +FAMO20 PO
[2023-03-26 00:55] LABS: BASOPHILS ABSOLUTE AUTO 0.01 K/mm3 (0.00-0.23); BASOPHILS PERCENT AUTO 0 % (0-2); EOSINOPHILS ABSOLUTE AUTO 0.11 K/mm3 (0.00-0.68); EOSINOPHILS PERCENT AUTO 2 % (0-6); Hematocrit 28.5 % (33.0-51.0); Hemoglobin 9.4 g/dL (11.5-16.0); IMMATURE GRAN ABSOLUTE AUTO 0.13 K/mm3 (0.00-0.10); IMMATURE GRAN PERCENT AUTO 2 % (0-1); LYMPHOCYTES ABSOLUTE AUTO 1.39 K/mm3 (0.84-5.20); LYMPHOCYTES PERCENT AUTO 20 % (21-46); MONOCYTES ABSOLUTE AUTO 0.73 K/mm3 (0.16-1.47); MONOCYTES PERCENT AUTO 11 % (4-13); Mean Corpuscular HGB 30.3 pg (26.0-34.0); Mean Corpuscular Volume 92 fL (80-100); Mean Platelet Volume 9.7 fL (9.1-12.4); NEUTROPHILS ABSOLUTE AUTO 4.46 K/mm3 (1.96-9.15); NEUTROPHILS PERCENT AUTO 65 % (41-73); Platelet Count 148 K/mm3 (150-400); RDW Coefficient Variation 14.1 % (11.7-14.2); RDW Standard Deviation 47.2 fL (35.1-46.3); White Blood Cell Count 6.83 K/mm3 (4.00-11.30)
[2023-03-26 00:56] LABS: Base Excess Venous 6.1 mmol/L; Bicarbonate Venous 28.7 mmol/L (24.0-30.0); PCO2 Venous 57.9 mmHg (38-42); pH Blood Venous 7.35 (7.34-7.37)
[2023-03-26 01:13] LABS: Albumin, Blood 3.4 g/dL (3.4-5.0); Albumin/Globulin Ratio 1.1 (0.8-1.8); Bilirubin, Total 0.3 mg/dL (0.1-1.0); Bun/Creatinine Ratio 29.1 (12.0-20.0); Calcium, Blood 8.4 mg/dL (8.5-10.1); Creatinine, Blood 1.99 mg/dL (0.40-1.00); Potassium, Blood 4.5 mmol/L (3.5-5.5); Total Protein, Blood 6.4 g/dL (6.4-8.2)
[2023-03-26 01:34] LABS: Influenza A, PCR NEGATIVE (NEGATIVE); Influenza B, PCR NEGATIVE (NEGATIVE); Resp Syncytial Virus, PCR NEGATIVE (NEGATIVE); SARS-Cov-2 (COVID-19) PCR, MMC NEGATIVE (NEGATIVE)
[2023-03-26 03:19] VITALS: BP 140/46
[2023-03-26] MEDS ORDERED: ZYRTEC10 M2 PO (03:52)
[2023-03-26] MEDS ORDERED: PANT40 PO (03:53)
[2023-03-26] MEDS ORDERED: VITAMIN D32000 UNI1 PO (03:55)
--- NOTE | 2023-03-26 04:29 | NUR ---
SHIFT SUMMERY. PT ARRIVED BY DANIE, AND WAS TRANSFRED BY SLIDER SHEET AND 3 PERSONS. PT C/O YONI COLD 2 WARM BLANKETS APPLYED AND HEAT IN ROOM TURNED UP. PT HAS SOME YEAST TO GROIN , USED WARM CLOTH TO CLEAN UNDER BREASTS PANIS AND GROIN. DRYED AND PLACED POWDER. CHECKED PURE WICK FOR PLACEMENT. DID TWO NURSE SKIN CHECK AND PT HAS A WOUND TO BUTTOCKS, PT HAD BEEN HERE 2 WEEKS AGO PER PT . NEW CLEAN DRG APPLYED TO BUTTOCKS, AREA TO BOTH SIDES OF GLUTIAL FOLD RED AND LEFT SIDE WITH OPEN AREA BLEEDING, ONLY APPEARS TO BE TOP LAYERS. PT ANGERY AND C/O OF PAIN AND BEING COLD NOT WANTING TO BE MOVED AND HAVING THINGS DONE AT THIS TIME. PT BEING VERY SARCASTIC WHEN ASKED QUESTIONS . PT SEEMS TO BE VERY ALERT AND ORIENTED X 4. PT C/O PAIN WHEN TOUCHED ANY WHERE. CALL LIGHT IN REACH BED ALRM ON PURE WICK IN PLACE.
[2023-03-26 05:07] LABS: BASOPHILS ABSOLUTE AUTO 0.02 K/mm3 (0.00-0.23); BASOPHILS PERCENT AUTO 0 % (0-2); EOSINOPHILS ABSOLUTE AUTO 0.03 K/mm3 (0.00-0.68); EOSINOPHILS PERCENT AUTO 1 % (0-6); Hematocrit 29.5 % (33.0-51.0); Hemoglobin 9.7 g/dL (11.5-16.0); IMMATURE GRAN PERCENT AUTO 2 % (0-1); LYMPHOCYTES ABSOLUTE AUTO 0.39 K/mm3 (0.84-5.20); LYMPHOCYTES PERCENT AUTO 7 % (21-46); MONOCYTES ABSOLUTE AUTO 0.21 K/mm3 (0.16-1.47); MONOCYTES PERCENT AUTO 4 % (4-13); Mean Corpuscular HGB 30.1 pg (26.0-34.0); Mean Corpuscular HGB Conc 32.9 g/dL (31.5-36.5); Mean Corpuscular Volume 92 fL (80-100); NEUTROPHILS ABSOLUTE AUTO 5.15 K/mm3 (1.96-9.15); NEUTROPHILS PERCENT AUTO 87 % (41-73); Platelet Count 150 K/mm3 (150-400); RDW Standard Deviation 47.4 fL (35.1-46.3); Red Blood Cell Count 3.22 M/mm3 (3.80-5.20)
[2023-03-26 06:12] LABS: Bun/Creatinine Ratio 29.9 (12.0-20.0); Calcium, Blood 8.7 mg/dL (8.5-10.1); Creatinine, Blood 1.77 mg/dL (0.40-1.00); Potassium, Blood 4.4 mmol/L (3.5-5.5)
[2023-03-26 07:56] VITALS: BP 115/55
--- NOTE | 2023-03-26 09:54 | NUR ---
CAREGIVER CONTACT CALLED DORY BACK, CAREGIVER AT [facility], PT OKAYED ANY INFO TO BE GIVEN TO THIS PERSON. DORY STATED THEY ARE STILL WAITING ON [facility] TO SERVICE HER CONCENTRATOR. ALSO GAVE UPDATED ADDRESS.
[2023-03-26 15:28] VITALS: BP 132/47
--- NOTE | 2023-03-26 16:16 | NUR ---
SHIFT SUMMARY PATIENT VSS THIS SHIFT, CONTINUES TO USE PUREWICK. CHOKING EPISODE AT LUNCH MEAL. DIET DOWNGRADED, SPEECH EVAL ORDERED PER DR OSORIO. CONTINUOUS PULSE OX PLACED FOR 4 HOURS TO FURTHER MONITOR. LUNGS SOUND CLEAR POST EPISODE, PATIENT WAS ABLE TO COUGH UP 50 CENT PIECE SIZE OF MEAT. OXYGEN SATS REMAINED ADEQUATE.
[2023-03-26 19:06] VITALS: BP 130/43
--- NOTE | 2023-03-27 04:30 | NUR ---
SHIFT SUMMERY, PT RESTING IN BED, PT REQUESTED RT TX EARLIER. PT FELT SOB, BUT O2 SAT WAS 98 ON 2L NC. TALKED TO PT ABOUT CLOSING EYES AND CONCENTRATING ON BREATHING IN AND OUT TILL RT CAME. PT HAS SEEMED TO BE SLEEPING WELL THE REST OF THE NIGHT. CALL LIGHT IN REACH BED ALARM ON.
[2023-03-27 05:59] LABS: Hematocrit 28.4 % (33.0-51.0); Hemoglobin 9.3 g/dL (11.5-16.0); Mean Corpuscular HGB Conc 32.7 g/dL (31.5-36.5); Mean Corpuscular Volume 92 fL (80-100); Mean Platelet Volume 10.2 fL (9.1-12.4); Platelet Count 154 K/mm3 (150-400); RDW Coefficient Variation 13.9 % (11.7-14.2); RDW Standard Deviation 46.5 fL (35.1-46.3); White Blood Cell Count 8.21 K/mm3 (4.00-11.30)
[2023-03-27 06:26] LABS: Albumin, Blood 3.3 g/dL (3.4-5.0); Anion Gap 5 mmol/L (6-16); Blood Urea Nitrogen 58 mg/dL (8-24); Bun/Creatinine Ratio 37.2 (12.0-20.0); CO2, Blood 29 mmol/L (21-32); Calcium, Blood 8.8 mg/dL (8.5-10.1); Chloride, Blood 103 mmol/L (98-108); Creatinine, Blood 1.56 mg/dL (0.40-1.00); Glomerular Filtration Rate 32 (60-); Glucose, Blood 267 mg/dL (70-99); Phosphorus, Blood 2.5 mg/dL (2.5-4.9); Potassium, Blood 4.3 mmol/L (3.5-5.5); Sodium, Blood 137 mmol/L (136-145)
[2023-03-27 07:43] VITALS: BP 139/52
[2023-03-27 16:06] VITALS: BP 145/69
--- NOTE | 2023-03-27 17:21 | NUR ---
SHIFT SUMMARY: Pt remains A&O x3 this shift. VSS. Resp even nonlabored on 2L NC. Up in chair most of the day. Tolerating meals, voiding per bsc with 1p ast/fww while up in chair. Request for purewick while in bed. No acute events this shift. Pain and safety maintained. Will continue to monitor this shift.
[2023-03-27 20:33] VITALS: BP 136/73
[2023-03-28 02:44] VITALS: BP 145/65
[2023-03-28 04:51] LABS: Hematocrit 26.8 % (33.0-51.0); Hemoglobin 8.7 g/dL (11.5-16.0); Mean Corpuscular HGB 29.5 pg (26.0-34.0); Mean Corpuscular HGB Conc 32.5 g/dL (31.5-36.5); Mean Corpuscular Volume 91 fL (80-100); Mean Platelet Volume 10.1 fL (9.1-12.4); Platelet Count 151 K/mm3 (150-400); RDW Coefficient Variation 13.8 % (11.7-14.2); RDW Standard Deviation 45.1 fL (35.1-46.3); Red Blood Cell Count 2.95 M/mm3 (3.80-5.20); White Blood Cell Count 8.22 K/mm3 (4.00-11.30)
[2023-03-28 05:15] LABS: Albumin, Blood 3.3 g/dL (3.4-5.0); Anion Gap 5 mmol/L (6-16); Blood Urea Nitrogen 62 mg/dL (8-24); Bun/Creatinine Ratio 40.5 (12.0-20.0); CO2, Blood 29 mmol/L (21-32); Chloride, Blood 101 mmol/L (98-108); Creatinine, Blood 1.53 mg/dL (0.40-1.00); Glomerular Filtration Rate 33 (60-); Glucose, Blood 267 mg/dL (70-99); Potassium, Blood 4.5 mmol/L (3.5-5.5); Sodium, Blood 135 mmol/L (136-145)
--- NOTE | 2023-03-28 06:55 | NUR ---
NOC SHIFT SUMMARY: TYLENOL GIVEN FOR LEFT SIDED PAIN NEAR RIBS. MD AWARE OF THIS PAIN. PATIENT NEEDS TO HAVE A BOWEL MOVEMENT. SHE HAS MIRALAX ORDERED NEEDED. SENNA AND DOCUSATE GIVEN LAST NIGHT. A&O X4. POSSIBLE DISCHARGE TODAY.
[2023-03-28 08:20] VITALS: BP 135/54
[2023-03-28] MEDS ORDERED: Acetaminophen650 M1 PO (15:13)
[2023-03-28] MEDS ORDERED: DOCU100 PO (15:14)
[2023-03-28] MEDS ORDERED: BISA10S PR (15:14)
[2023-03-28] MEDS ORDERED: MIRALAX17 GM PO (15:15)
[2023-03-28] MEDS ORDERED: SENN187 PO (15:15)
[2023-03-28] MEDS ORDERED: FLUTICASONE-SA1 EAC2 INH (15:16)
[2023-03-28] MEDS ORDERED: IPRAT-ALBUT 0.5-3 ML INH (15:18)
--- NOTE | 2023-03-28 18:48 | NUR ---
PT DISCHARGED BACK TO [facility]. DC INSTRUCTIONS AND EDUCATION MATERIAL EXPLAINED TO PT. MEDICATIONS FAXED TO [facility]. IV DC'd. PT HELPED TO DRESS. PT'S BELONGINGS GATHERED AND SENT HOME WITH PT. PT WENT HOME WITH MOBILE OXYGEN. PT TAKEN BY WHEELCHAIR TO WAITING VEHICLE.
== END 2023-03-28 17:00 | disposition home or self-care (01) | DRG 189 ==
LOC: ER 00:12 → MEDS 00:13
PROVIDERS: Family Medicine; Internal Medicine; Student in an Organized Health Care Education/Training Program; ADMIT Internal Medicine
PROC: 5A09357 Assistance with Respiratory Ventilation, Less than 24 Consecutive Hours, Continuous Positive Airway Pressure (ICD-10-PCS; principal; 2023-03-26)
DX: J96.21 Acute and chronic respiratory failure with hypoxia (principal); J44.1 Chronic obstructive pulmonary disease with (acute) exacerbation; I50.32 Chronic diastolic (congestive) heart failure; N17.9 Acute kidney failure, unspecified; I48.20 Chronic atrial fibrillation, unspecified; N18.4 Chronic kidney disease, stage 4 (severe); Z66 Do not resuscitate; J96.22 Acute and chronic respiratory failure with hypercapnia; I27.20 Pulmonary hypertension, unspecified; E11.22 Type 2 diabetes mellitus with diabetic chronic kidney disease; E83.51 Hypocalcemia; C50.919 Malignant neoplasm of unspecified site of unspecified female breast; K59.00 Constipation, unspecified; F41.9 Anxiety disorder, unspecified; E11.51 Type 2 diabetes mellitus with diabetic peripheral angiopathy without gangrene; D63.1 Anemia in chronic kidney disease; R79.89 Other specified abnormal findings of blood chemistry; K21.9 Gastro-esophageal reflux disease without esophagitis; Z99.81 Dependence on supplemental oxygen; Z88.1 Allergy status to other antibiotic agents; Z88.2 Allergy status to sulfonamides; Z88.8 Allergy status to other drugs, medicaments and biological substances; Z79.52 Long term (current) use of systemic steroids; Z79.01 Long term (current) use of anticoagulants; Z79.811 Long term (current) use of aromatase inhibitors; Z87.891 Personal history of nicotine dependence; Z11.52 Encounter for screening for COVID-19
CPT/HCPCS: 0241U; 36415; 71045; 80048; 80053; 80069; 82803; 83880; 84484; 85025; 85027; 92610; 93005; 93010; 94640; 94644; 94664; 94760; 96361; 96374; 96376; 99285-25; A9270; G0378; J2930; J7030

== ENCOUNTER 2023-03-31 00:43 | Emergency (ER) | payer MEDICARE ==
[~2023-03-31] VITALS: Ht 157.5 cm; Wt 79.4 kg
[~2023-03-31 00:43] MED LIST changes: +Acetaminophen650 M1 PO; +BISA10S PR; +FLUTICASONE-SA1 EAC2 INH; +PANT40 PO; +VITAMIN D32000 UNI1 PO; +ZYRTEC10 M2 PO
[2023-03-31 01:12] LABS: BASOPHILS ABSOLUTE AUTO 0.07 K/mm3 (0.00-0.23); BASOPHILS PERCENT AUTO 1 % (0-2); EOSINOPHILS ABSOLUTE AUTO 0.08 K/mm3 (0.00-0.68); EOSINOPHILS PERCENT AUTO 1 % (0-6); Hematocrit 32.7 % (33.0-51.0); Hemoglobin 10.6 g/dL (11.5-16.0); IMMATURE GRAN ABSOLUTE AUTO 0.48 K/mm3 (0.00-0.10); IMMATURE GRAN PERCENT AUTO 5 % (0-1); LYMPHOCYTES PERCENT AUTO 13 % (21-46); MONOCYTES ABSOLUTE AUTO 1.02 K/mm3 (0.16-1.47); MONOCYTES PERCENT AUTO 10 % (4-13); Mean Corpuscular HGB 30.2 pg (26.0-34.0); Mean Corpuscular HGB Conc 32.4 g/dL (31.5-36.5); Mean Corpuscular Volume 93 fL (80-100); Mean Platelet Volume 10.2 fL (9.1-12.4); NEUTROPHILS ABSOLUTE AUTO 6.91 K/mm3 (1.96-9.15); NEUTROPHILS PERCENT AUTO 70 % (41-73); Platelet Count 166 K/mm3 (150-400); RDW Coefficient Variation 14.1 % (11.7-14.2); RDW Standard Deviation 47.8 fL (35.1-46.3); Red Blood Cell Count 3.51 M/mm3 (3.80-5.20); White Blood Cell Count 9.86 K/mm3 (4.00-11.30)
[2023-03-31 01:41] LABS: Albumin, Blood 3.4 g/dL (3.4-5.0); Bilirubin, Total 0.2 mg/dL (0.1-1.0); Bun/Creatinine Ratio 44.1 (12.0-20.0); Calcium, Blood 8.7 mg/dL (8.5-10.1); Creatinine, Blood 1.45 mg/dL (0.40-1.00); Globulin, Blood 3.3 g/dL (2.2-4.0); Potassium, Blood 3.9 mmol/L (3.5-5.5); Total Protein, Blood 6.7 g/dL (6.4-8.2)
[2023-03-31 02:12] LABS: Influenza A, PCR NEGATIVE (NEGATIVE); Influenza B, PCR NEGATIVE (NEGATIVE); Resp Syncytial Virus, PCR NEGATIVE (NEGATIVE); SARS-Cov-2 (COVID-19) PCR, MMC NEGATIVE (NEGATIVE)
[2023-03-31] MEDS ORDERED: AZIT250 PO (04:05)
[2023-03-31 04:43] VITALS: BP 134/55
== END 2023-03-31 05:46 | disposition home or self-care (01) ==
LOC: ER 00:43
PROVIDERS: Emergency Medicine
DX: J44.1 Chronic obstructive pulmonary disease with (acute) exacerbation (principal); R79.89 Other specified abnormal findings of blood chemistry; E11.22 Type 2 diabetes mellitus with diabetic chronic kidney disease; I13.0 Hypertensive heart and chronic kidney disease with heart failure and stage 1 through stage 4 chronic kidney disease, or unspecified chronic kidney disease; N18.30 Chronic kidney disease, stage 3 unspecified; I50.32 Chronic diastolic (congestive) heart failure; E78.5 Hyperlipidemia, unspecified; M54.9 Dorsalgia, unspecified; Z11.52 Encounter for screening for COVID-19; Z20.822 Contact with and (suspected) exposure to COVID-19; G89.29 Other chronic pain; E11.21 Type 2 diabetes mellitus with diabetic nephropathy; E11.51 Type 2 diabetes mellitus with diabetic peripheral angiopathy without gangrene; M81.0 Age-related osteoporosis without current pathological fracture; K21.9 Gastro-esophageal reflux disease without esophagitis; F41.9 Anxiety disorder, unspecified; I48.91 Unspecified atrial fibrillation; Z99.81 Dependence on supplemental oxygen; Z87.891 Personal history of nicotine dependence; Z85.3 Personal history of malignant neoplasm of breast; Z88.2 Allergy status to sulfonamides; Z88.1 Allergy status to other antibiotic agents; Z79.01 Long term (current) use of anticoagulants; Z79.899 Other long term (current) drug therapy; Z79.51 Long term (current) use of inhaled steroids
CPT/HCPCS: 0241U; 71045; 80053; 84145; 84484; 85025; 85379; 93005; 93010; 94640; 94664; 96374; 99285-25; A9270; J2930

== ENCOUNTER 2023-04-03 20:52 | Emergency (ER) | payer MEDICARE ==
[~2023-04-03] VITALS: Ht 160 cm; Wt 77.1 kg
[2023-04-03 21:36] LABS: BASOPHILS ABSOLUTE AUTO 0.03 K/mm3 (0.00-0.23); BASOPHILS PERCENT AUTO 0 % (0-2); EOSINOPHILS ABSOLUTE AUTO 0.01 K/mm3 (0.00-0.68); EOSINOPHILS PERCENT AUTO 0 % (0-6); Hematocrit 29.5 % (33.0-51.0); Hemoglobin 9.8 g/dL (11.5-16.0); IMMATURE GRAN ABSOLUTE AUTO 0.45 K/mm3 (0.00-0.10); IMMATURE GRAN PERCENT AUTO 4 % (0-1); LYMPHOCYTES ABSOLUTE AUTO 1.24 K/mm3 (0.84-5.20); LYMPHOCYTES PERCENT AUTO 11 % (21-46); MONOCYTES ABSOLUTE AUTO 1.14 K/mm3 (0.16-1.47); MONOCYTES PERCENT AUTO 10 % (4-13); Mean Corpuscular HGB 29.7 pg (26.0-34.0); Mean Corpuscular HGB Conc 33.2 g/dL (31.5-36.5); Mean Corpuscular Volume 89 fL (80-100); Mean Platelet Volume 10.7 fL (9.1-12.4); NEUTROPHILS ABSOLUTE AUTO 8.94 K/mm3 (1.96-9.15); NEUTROPHILS PERCENT AUTO 76 % (41-73); Platelet Count 180 K/mm3 (150-400); RDW Coefficient Variation 14.6 % (11.7-14.2); RDW Standard Deviation 47.2 fL (35.1-46.3); White Blood Cell Count 11.81 K/mm3 (4.00-11.30)
[2023-04-03 22:05] LABS: Albumin, Blood 3.1 g/dL (3.4-5.0); Bilirubin, Total 0.2 mg/dL (0.1-1.0); Calcium, Blood 8.8 mg/dL (8.5-10.1); Creatinine, Blood 1.63 mg/dL (0.40-1.00); Globulin, Blood 3.1 g/dL (2.2-4.0); Potassium, Blood 4.7 mmol/L (3.5-5.5); Total Protein, Blood 6.2 g/dL (6.4-8.2)
[2023-04-03 23:49] VITALS: BP 105/42
== END 2023-04-04 00:49 | disposition home or self-care (01) ==
LOC: ER 20:52
PROVIDERS: Emergency Medicine
DX: R06.02 Shortness of breath (principal); J44.9 Chronic obstructive pulmonary disease, unspecified; I13.10 Hypertensive heart and chronic kidney disease without heart failure, with stage 1 through stage 4 chronic kidney disease, or unspecified chronic kidney disease; I50.32 Chronic diastolic (congestive) heart failure; E11.22 Type 2 diabetes mellitus with diabetic chronic kidney disease; N18.30 Chronic kidney disease, stage 3 unspecified; E78.5 Hyperlipidemia, unspecified; E11.40 Type 2 diabetes mellitus with diabetic neuropathy, unspecified; E11.51 Type 2 diabetes mellitus with diabetic peripheral angiopathy without gangrene; Z88.1 Allergy status to other antibiotic agents; Z88.2 Allergy status to sulfonamides; Z79.52 Long term (current) use of systemic steroids; Z79.899 Other long term (current) drug therapy; Z79.01 Long term (current) use of anticoagulants; Z79.51 Long term (current) use of inhaled steroids; Z99.81 Dependence on supplemental oxygen; Z87.891 Personal history of nicotine dependence
CPT/HCPCS: 71045; 80053; 83880; 84484; 85025; 93005; 93010; 94644; 94664; 99285-25

== ENCOUNTER 2023-04-07 20:57 | Emergency (ER) | payer MEDICARE ==
[~2023-04-07] VITALS: Ht 162.6 cm; Wt 74.8 kg
[2023-04-08 04:00] VITALS: BP 119/65
== END 2023-04-08 04:00 | disposition home or self-care (01) ==
LOC: ER 20:57
DX: K59.00 Constipation, unspecified (principal); I13.0 Hypertensive heart and chronic kidney disease with heart failure and stage 1 through stage 4 chronic kidney disease, or unspecified chronic kidney disease; I50.32 Chronic diastolic (congestive) heart failure; E11.22 Type 2 diabetes mellitus with diabetic chronic kidney disease; N18.30 Chronic kidney disease, stage 3 unspecified; E11.40 Type 2 diabetes mellitus with diabetic neuropathy, unspecified; J44.9 Chronic obstructive pulmonary disease, unspecified; Z99.81 Dependence on supplemental oxygen; E78.5 Hyperlipidemia, unspecified; I73.9 Peripheral vascular disease, unspecified; K21.9 Gastro-esophageal reflux disease without esophagitis; I48.91 Unspecified atrial fibrillation; M81.0 Age-related osteoporosis without current pathological fracture; Z87.891 Personal history of nicotine dependence; Z79.51 Long term (current) use of inhaled steroids; Z79.52 Long term (current) use of systemic steroids; Z79.01 Long term (current) use of anticoagulants; Z79.2 Long term (current) use of antibiotics; Z79.899 Other long term (current) drug therapy; Z88.1 Allergy status to other antibiotic agents; Z88.2 Allergy status to sulfonamides
CPT/HCPCS: 71045; 74018; 99284-25; A9270; P9612